=== PATIENT | male | born 1945 | race Caucasian/White ===

== ENCOUNTER → 2017-05-22 | Outpatient (CLI) | payer BC, MEDICARE ==
[2017-05-25 00:06] LABS: Lyme Disease IgG/IgM Antibodie <0.91 ISR (0.00-0.90); Lyme Disease IgM Ab Quantitati <0.80 index (0.00-0.79)
== END ==
LOC: M WUC 13:53
PROVIDERS: ATTEND Internal Medicine Cardiovascular Disease
DX: Z11.2 Encounter for screening for other bacterial diseases (principal); W57.XXXA Bitten or stung by nonvenomous insect and other nonvenomous arthropods, initial encounter

== ENCOUNTER → 2017-11-14 | Outpatient (CLI) | payer BC, MEDICARE ==
[2017-11-14 16:28] LABS: ANION GAP 9 MEQ/L (8-16); BLOOD UREA NITROGEN 12 MG/DL (7-18); CALCIUM LEVEL 9.1 MG/DL (8.8-10.2); CARBON DIOXIDE LEVEL 27 MEQ/L (21-32); CHLORIDE LEVEL 96 MEQ/L (98-107); CREATININE FOR GFR 1.28 MG/DL (0.70-1.30); GLOMERULAR FILTRATION RATE 58.5 (>42); GLUCOSE, FASTING 85 MG/DL (70-100); POTASSIUM SERUM 4.7 MEQ/L (3.5-5.1); SODIUM LEVEL 132 MEQ/L (136-145)
== END ==
LOC: M WUC 14:14
DX: Z85.46 Personal history of malignant neoplasm of prostate (principal)
CPT/HCPCS: 80048

== ENCOUNTER 2018-03-14 09:48 | Day surgery (SDC) | payer BC, MEDICARE ==
[2018-03-14] MEDS: PROPARACAINE 0.5% OPHTH SOL 15ML OS (11:13)
[2018-03-14] MEDS: PHENYLEPHRINE 2.5% OPHTH SOL 2ML OS (11:13)
[2018-03-14] MEDS: OFLOXACIN 0.3 % (OCUFLOX) OPTH SOL 5ML OS (11:13)
[2018-03-14] MEDS: TROPICAMIDE 1% OPHTH SOLN 2ML OS (11:13)
[2018-03-14] MEDS: ACETYLCHOLINE OPHTH SOLN 1% 2ML (MIOCHOL-E) As Ordered (12:48)
[2018-03-14] MEDS: LIDOCAINE 0.75%/EPINEPHRINE 0.025% IN BSS 1ML SYR INTRACAMERAL (OR ONLY) As Ordered (12:48)
[2018-03-14] MEDS: DUOVISC (0.50ML VISCOAT/0.55ML PROVISC) OPHTH KIT As Ordered (12:48)
[2018-03-14] MEDS: POVIDONE-IODINE 5% OPHTH PREP SOL 30ML As Ordered (12:48)
[2018-03-14] MEDS: BALANCED SALT IRRIGATION SOLUTION 500ML BAG (FOR OR EYE MACHINE) As Ordered (12:48)
[2018-03-14] MEDS: CEFUROXIME 1MG/0.1ML INTRACAMERAL INJ As Ordered (12:48)
[2018-03-14] MEDS ORDERED: fentaNYL 100 MCG/2 ML INJECTION (J3010) As Ordered (13:16)
[2018-03-14] MEDS ORDERED: MIDAZOLAM INJ 2 MG/2 ML VIAL (J2250) As Ordered (13:16)
== END 2018-03-14 13:15 | disposition home or self-care (01) ==
LOC: M SDC 13:15
DX: H25.12 Age-related nuclear cataract, left eye (principal); H21.562 Pupillary abnormality, left eye; I25.2 Old myocardial infarction; Z98.61 Coronary angioplasty status; E03.9 Hypothyroidism, unspecified; Z87.891 Personal history of nicotine dependence; E78.5 Hyperlipidemia, unspecified; F41.9 Anxiety disorder, unspecified; Z85.09 Personal history of malignant neoplasm of other digestive organs
CPT/HCPCS: 66982

== ENCOUNTER 2018-03-21 07:14 | Day surgery (SDC) | payer BC, MEDICARE ==
[2018-03-21] MEDS ORDERED: MIDAZOLAM INJ 2 MG/2 ML VIAL (J2250) As Ordered (07:16)
[2018-03-21] MEDS: OFLOXACIN 0.3 % (OCUFLOX) OPTH SOL 5ML OD (07:46)
[2018-03-21] MEDS: PROPARACAINE 0.5% OPHTH SOL 15ML OD (07:46)
[2018-03-21] MEDS: TROPICAMIDE 1% OPHTH SOLN 2ML OD (07:46)
[2018-03-21] MEDS: PHENYLEPHRINE 2.5% OPHTH SOL 2ML OD (07:46)
[2018-03-21] MEDS ORDERED: fentaNYL 100 MCG/2 ML INJECTION (J3010) As Ordered (08:24)
[2018-03-21] MEDS: POVIDONE-IODINE 5% OPHTH PREP SOL 30ML As Ordered (08:28)
[2018-03-21] MEDS: CEFUROXIME 1MG/0.1ML INTRACAMERAL INJ As Ordered (08:29)
[2018-03-21] MEDS: DUOVISC (0.50ML VISCOAT/0.55ML PROVISC) OPHTH KIT As Ordered (08:29)
[2018-03-21] MEDS: LIDOCAINE 0.75%/EPINEPHRINE 0.025% IN BSS 1ML SYR INTRACAMERAL (OR ONLY) As Ordered (08:29)
[2018-03-21] MEDS: BALANCED SALT IRRIGATION SOLUTION 500ML BAG (FOR OR EYE MACHINE) As Ordered (08:29)
== END 2018-03-21 09:05 | disposition home or self-care (01) ==
LOC: M SDC 07:14
DX: H25.11 Age-related nuclear cataract, right eye (principal); I25.2 Old myocardial infarction; Z98.61 Coronary angioplasty status; Z88.2 Allergy status to sulfonamides; Z79.82 Long term (current) use of aspirin; Z79.899 Other long term (current) drug therapy; E78.5 Hyperlipidemia, unspecified; E03.9 Hypothyroidism, unspecified; F41.9 Anxiety disorder, unspecified; Z92.3 Personal history of irradiation; Z87.891 Personal history of nicotine dependence; Z85.09 Personal history of malignant neoplasm of other digestive organs; Z85.110 Personal history of malignant carcinoid tumor of bronchus and lung
CPT/HCPCS: 66984

== ENCOUNTER 2018-06-15 10:45 | Emergency (ER) | payer BC, MEDICARE ==
[2018-06-15 11:37] LABS: VENOUS HCO3 27.4 MEQ/L (23.0-27.0); VENOUS O2 SATURATION 57.9 % (60.0-80.0); VENOUS PARTIAL PRESSURE CO2 50.7 mmHg (38.0-50.0); VENOUS PARTIAL PRESSURE O2 35.1 mmHg (30.0-50.0); VENOUS PH 7.351 UNITS (7.330-7.430); VENOUS STANDARD HCO3 24.5 MEQ/L
[2018-06-15] MEDS: METOPROLOL TART 50 MG TAB PO (11:39)
[2018-06-15 11:43] LABS: BASO # 0.1 10^3/uL (0.0-0.2); BASO % 1.1 % (0.0-1.0); EOS # 0.1 10^3/uL (0.0-0.50); EOS % 0.9 % (0.0-3.0); HEMATOCRIT 37.9 % (42.0-52.0); HEMOGLOBIN 12.8 g/dl (13.5-17.5); IMMATURE GRANULOCYTE % 0.3 % (0-3.0); LYMPH # 0.8 10^3/uL (1.5-4.5); LYMPH % 12.1 % (24.0-44.0); MEAN CORPUSCULAR HEMOGLOBIN 30.5 pg (27.0-33.0); MEAN CORPUSCULAR HGB CONC 33.8 g/dl (32.0-36.5); MEAN CORPUSCULAR VOLUME 90.5 fl (80.0-96.0); MONO # 0.7 10^3/uL (0.0-0.8); MONO % 10.7 % (0.0-5.0); NEUTROPHILS % 74.9 % (36.0-66.0); PLATELET COUNT, AUTOMATED 257 10^3/uL (150-450); RED BLOOD COUNT 4.19 10^6/uL (4.30-6.10); RED CELL DISTRIBUTION WIDTH 12.6 % (11.5-14.5); WHITE BLOOD COUNT 6.6 10^3/uL (4.0-10.0)
[2018-06-15 11:56] LABS: PROTHROMBIN TIME 13.3 SECONDS (12.1-14.4)
[2018-06-15 12:17] LABS: LACTIC ACID SEPSIS PROTOCOL 2.2 MMOL/L (0.4-2.0)
[2018-06-15 12:25] LABS: ALBUMIN 3.6 GM/DL (3.2-5.2); ALBUMIN/GLOBULIN RATIO 1.09 (1.00-1.93); ALKALINE PHOSPHATASE 127 U/L (45-117); ALT/SGPT 15 U/L (12-78); ANION GAP 14 MEQ/L (8-16); AST/SGOT 13 U/L (7-37); BILIRUBIN,DIRECT 0.3 MG/DL (0.0-0.2); BILIRUBIN,TOTAL 0.8 MG/DL (0.2-1.0); BLOOD UREA NITROGEN 12 MG/DL (7-18); CALCIUM LEVEL 8.6 MG/DL (8.8-10.2); CARBON DIOXIDE LEVEL 26 MEQ/L (21-32); CHLORIDE LEVEL 93 MEQ/L (98-107); CPK CREATINE PHOSPHOKINASE 105 U/L (39-308); CREATININE FOR GFR 1.41 MG/DL (0.70-1.30); GLOMERULAR FILTRATION RATE 52.2 (>42); GLUCOSE, FASTING 96 MG/DL (70-100); MB/CK RELATIVE INDEX 2.38 (< OR =4); NT-PRO BNP 3808 PG/ML (<450); POTASSIUM SERUM 4.1 MEQ/L (3.5-5.1); SODIUM LEVEL 133 MEQ/L (136-145); TOTAL PROTEIN 6.9 GM/DL (6.4-8.2); TROPONIN I < 0.02 NG/ML (< 0.10)
[2018-06-15] MEDS: NS 1,000 ML IV (13:10)
[2018-06-15] MEDS: IPRATROPIUM 0.5MG/ALBUTEROL 2.5MG INH SOL UD 3ML (DUONEB)(J7620) NEB (14:20)
== END 2018-06-15 15:57 | disposition home or self-care (01) ==
LOC: M ED 10:45
DX: J20.9 Acute bronchitis, unspecified (principal); I48.91 Unspecified atrial fibrillation; I51.7 Cardiomegaly; I25.10 Atherosclerotic heart disease of native coronary artery without angina pectoris; I25.2 Old myocardial infarction; C34.90 Malignant neoplasm of unspecified part of unspecified bronchus or lung; Z95.5 Presence of coronary angioplasty implant and graft; Z90.2 Acquired absence of lung [part of]; Z87.891 Personal history of nicotine dependence; Z79.82 Long term (current) use of aspirin; Z79.899 Other long term (current) drug therapy; Z88.2 Allergy status to sulfonamides
CPT/HCPCS: 71045

== ENCOUNTER → 2018-09-15 | Outpatient (CLI) | payer BC, MEDICARE ==
[~2018-09-15] MED LIST: AMBI10TA PO; APRI0.37 PO; ASPI325T25 PO; AZIT500T2 PO; CLOP75TA2 PO; COMP1MIS3 XX; FLOM0.4C39 PO; FURO20TA2 PO; LEVO25TA5 PO; METO50TA7 PO; NASA0.9A INH; OMEP20CA3 PO; ROSU5TAB4 PO; VENTAER INH; VITA100066 PO; XANA0.25 PO
[2018-09-15 16:42] LABS: BLOOD UREA NITROGEN 18 MG/DL (7-18); CREATININE FOR GFR 1.05 MG/DL (0.70-1.30); GLOMERULAR FILTRATION RATE > 60.0 (>42)
== END ==
LOC: M WUC 12:33
DX: Z85.46 Personal history of malignant neoplasm of prostate (principal)

== ENCOUNTER → 2018-11-15 | Outpatient (CLI) | payer BC, MEDICARE ==
[~2018-11-15] MED LIST changes: +ASPI-255 PO; -ASPI325T25 PO
== END ==
LOC: M WUC 14:10
PROVIDERS: ATTEND Urology
DX: Z85.46 Personal history of malignant neoplasm of prostate (principal)

== ENCOUNTER → 2018-12-23 | Outpatient (CLI) | payer BC, MEDICARE | LOC: M WUC 11:17 | PROVIDERS: ATTEND Nurse Practitioner | DX: Z51.81 Encounter for therapeutic drug level monitoring (principal) ==

== ENCOUNTER 2019-09-17 11:58 | Outpatient (RCR) | payer BC, MEDICARE ==
[~2019-09-17] VITALS: Ht 177.8 cm; Wt 73.7 kg
[~2019-09-17 11:58] MED LIST changes: -AZIT500T2 PO; +AZIT500T5 PO; +OMEP1CAP73 PO; -OMEP20CA3 PO; -ROSU5TAB4 PO; +ROSU5TAB5 PO
[2019-09-17] MEDS ORDERED: METO25TA4 PO (13:11)
[2019-09-17] MEDS ORDERED: ONDA-83 PO (13:11)
[2019-09-17] MEDS ORDERED: CRES5TAB PO (13:11)
[2019-09-17] MEDS ORDERED: PROT1TAB2 PO (13:11)
[2019-09-17] MEDS ORDERED: LEVO150T7 PO (13:11)
[2019-09-17] MEDS ORDERED: ELIQ5TAB PO (13:11)
[2019-09-17] MEDS ORDERED: FURO40TA2 PO (13:11)
[2019-09-17] MEDS ORDERED: RAPA8CAP4 PO (13:11)
[2019-09-17 13:37] VITALS: BP 119/60
[2019-09-17 14:08] VITALS: BP 119/60
[2019-09-17 14:34] VITALS: BP 119/60
--- NOTE | 2019-09-17 15:26 | CARECAPL ---
Assessment Account #s: Initial Assessment General Diagnoses: CABG, Stent Date of event: Dec 16, 2018 Physician: Mendel Bruner Allergies: Coded Allergies: Sulfa (Sulfonamide Antibiotics) (Verified Allergy, Unknown, 09/16/19) Date Entered Program: Sep 17, 2019 Risk strat for cardiac event: High Exercise Date: Sep 17, 2019 Assessment: Initial Assessment Stages of change: Preperation Exercise Prescription Plan TO EDUCATE AND BUILD ENDURANCE THROUGH MONITORED EXERCISE PROGRAM Modalities initiated: Treadmill (WILL ADD), Cardio-Strider (WILL ADD), Nustep (WILL ADD), Arm Aerometer (WILL ADD), Dumbells (WILL ADD), Recumbent Bike (WILL ADD) Frequency: 3 Duration (Minutes) 30 - 60 minutes total exercise a day. 15 - 20 work intervals in minutes. PRN rest intervals in minutes. Functional Capacity Goal Sustained Metabolic Equivalent of a task (MET) goal of 2.5-3.5 for 15-20 minutes. Intensity: 3-Moderate Progression (METS) Increase by: 0.5 METS every: 5 sessions TOLERATED Angina with ex: No Target Heart Rate REST + 35-40 PER BETA NICCI THERAPY Resistance Training: Yes (WILL ADD) Weight (pounds): 1 Reps: 8-12 Hypertension: Yes Resting 119/60 Medications Scheduled Apixaban (Eliquis), 5 MG PO BID, (Reported) Clopidogrel Bisulfate (Clopidogrel), 75 MG PO DAILY, (Reported) Furosemide (Furosemide), 40 MG PO DAILY, (Reported) Levothyroxine Sodium (Levothyroxine Sodium), 150 MCG PO DAILY, (Reported) Mesalamine (Apriso), 0.375 GRAM PO QID, (Reported) Metoprolol Tartrate (Metoprolol Tartrate), 25 MG PO BID, (Reported) Pantoprazole Sodium (Protonix), 40 MG PO DAILY, (Reported) Rosuvastatin Calcium (Crestor), 5 MG PO DAILY, (Reported) Silodosin (Rapaflo), 8 MG PO QPM, (Reported) Tamsulosin HCl (Flomax), 0.4 MG PO DAILY, (Reported) Scheduled PRN Albuterol Sulfate (Ventolin Hfa), 2 PUFF INH Q4-6HP PRN for wheezing, (Reported) Alprazolam (Xanax), 0.25 MG PO DAILYPRN PRN for ANXIETY, (Reported) Ondansetron HCl (Ondansetron HCl), 4 MG PO DAILY PRN for NAUSEA OR VOMITING, (Reported) Zolpidem Tartrate (Ambien), 10 MG PO QHSP PRN for sleep, (Reported) Discontinued Medications (Compressor Nebulizer), MIS XX, (DME) Discontinued Reason: Pt states not taking 0.9 % Sodium Chloride (Nasal Mist), 2 INHALATION INH QID PRN for CONGESTION Discontinued Reason: Pt states not taking Aspirin (Aspirin EC), 325 MG PO DAILY, (Reported) Discontinued Reason: Pt states not taking Azithromycin (Azithromycin), 1 TAB PO DAILY Discontinued Reason: Pt states not taking Cholecalciferol (Vitamin D3) (Vitamin D3), 1,000 UNIT PO DAILY, (Reported) Discontinued Reason: Pt states not taking Furosemide (Furosemide), 20 MG PO DAILY, (Reported) Discontinued Reason: Pt states not taking Levothyroxine Sodium (Levothyroxine Sodium), 25 MCG PO DAILY, (Reported) Discontinued Reason: Pt states not taking Metoprolol Tartrate (Metoprolol Tartrate), 50 MG PO DAILY, (Reported) Discontinued Reason: Pt states not taking Omeprazole (Omeprazole), 20 MG PO DAILY, (Reported) Discontinued Reason: Pt states not taking Med Change: No Intervention Resistance Training: Yes (WILL ADD) Education: Self pulse (Instructed patient on how to take self pulse) Education Goals Met: No Target Goals Individual exercise Rx (1) BP 140/90 or 130/80 if DM or CKD (1) Aerobic active 30+min 5 days per week (1) Nutrition Date: Sep 17, 2019 Assessment: Initial Assessment Stages of change: Preperation Lipid- med/supplement CRESTOR Med Change: No Diabetes Diabetes: No Weight Management Weight (lbs): 162.2 Height (inches): 70 Waist Circumference (Inches): 38 BMI: 23.3 Weight goal: 175 Special Diet: low salt, low-fat Alcohol: daily Alcohol Type: wine (PATIENT STATES "SOME", H&P STATES 2 DAILY) Alcohol Amount: 2 Diet Access Tool: Rate your plate Score: 51 Current Weight (pounds): 162.2 Weight Goal 175 Intervention Lubrication Equipment Servicer Consult: No Nurse/patient discussion: Yes Dietary Goals TO MAKE HEART HEALTHY DIET CHOICES WITH BOOST SUPPLEMENTATION Diet Class: Yes (WILL SEE TWO WAY RADIO TECHNICIAN WHILE IN PROGRAM) Referral to Diabetes education: No Referral to lipid clinic: No Referral to weight mangement p: No Education Eating Healthy Education Goals Met: No Target goal LDL-C<100 if triglycerides are >200 Non-HDL-C should be <130 (1) LDL-C<70 for high risk patients (4) HbA1c<7% (1) BMI<25 Waist cir<40in M/<35in F (1) Education Date: Sep 17, 2019 Assessment: Initial Assessment Learning Barriers: ready Knowledge Test Score: 10 Stages of change: Preperation Family Support: Yes Tobacco use: No Quit: >6 months (QUIT 1989) Tobacco Use Smokeless tobacco: No Intervention Referral to smoking cessation: No Individual education and couns: No Tobacco Adjunct: No Education class schedule given: No Attended education classes: No Education: CAD (Patient verbalizes that elevated cholesterol can clog arteries leading to CAD) Education Goals Met: No Target Goals Complete cessation of tobacco use (1). Psychosocial Date: Sep 17, 2019 Assessment: Initial Assessment Psych Test (Initial/Discharge) Tool Used: Other (PHQ-9) Score: 2 Stages of change: Preperation Intervention Physician Consult: No Physician Referral: No Med Change: No Stress Management Class: No Uses Stress Management Skills: Yes Education Education: Coping Techniques (Patient states he should share his feelings with someone he feels comfortable with, take time for himself) Education Goals Met: No Target Goal Assess presence or absence of depression using a valid screening tool (1). Maximize coping skills (2). Positive support system (2). Patient/Program Goal Preventative Medication: Yes Clopidogrel, Yes Beta blockade, Yes Statin/OTR lipid Lowering Fall Risk Assess: Yes (NOT A FALL RISK) Provider Assessment Session Number: 1 Provider Assessment: Proceed with rehab Anil Thomas RN Sep 17, 2019 15:26
--- NOTE | 2019-09-25 10:01 | CARECAPL ---
General Allergies: Coded Allergies: Sulfa (Sulfonamide Antibiotics) (Verified Allergy, Unknown, 09/16/19) Exercise Prescription Duration (Minutes) 30 - 60 minutes total exercise a day. 15 - 20 work intervals in minutes. PRN rest intervals in minutes. Functional Capacity Goal Sustained Metabolic Equivalent of a task (MET) goal of for minutes. Progression (METS) Increase by: METS every: sessions Medications Scheduled Apixaban (Eliquis), 5 MG PO BID, (Reported) Clopidogrel Bisulfate (Clopidogrel), 75 MG PO DAILY, (Reported) Furosemide (Furosemide), 40 MG PO DAILY, (Reported) Levothyroxine Sodium (Levothyroxine Sodium), 150 MCG PO DAILY, (Reported) Mesalamine (Apriso), 0.375 GRAM PO QID, (Reported) Metoprolol Tartrate (Metoprolol Tartrate), 25 MG PO BID, (Reported) Pantoprazole Sodium (Protonix), 40 MG PO DAILY, (Reported) Rosuvastatin Calcium (Crestor), 5 MG PO DAILY, (Reported) Silodosin (Rapaflo), 8 MG PO QPM, (Reported) Tamsulosin HCl (Flomax), 0.4 MG PO DAILY, (Reported) Scheduled PRN Albuterol Sulfate (Ventolin Hfa), 2 PUFF INH Q4-6HP PRN for wheezing, (Reported) Alprazolam (Xanax), 0.25 MG PO DAILYPRN PRN for ANXIETY, (Reported) Ondansetron HCl (Ondansetron HCl), 4 MG PO DAILY PRN for NAUSEA OR VOMITING, (Reported) Zolpidem Tartrate (Ambien), 10 MG PO QHSP PRN for sleep, (Reported) Target Goals Individual exercise Rx (1) BP 140/90 or 130/80 if DM or CKD (1) Aerobic active 30+min 5 days per week (1) Target goal LDL-C<100 if triglycerides are >200 Non-HDL-C should be <130 (1) LDL-C<70 for high risk patients (4) HbA1c<7% (1) BMI<25 Waist cir<40in M/<35in F (1) Target Goals Complete cessation of tobacco use (1). Target Goal Assess presence or absence of depression using a valid screening tool (1). Maximize coping skills (2). Positive support system (2). Provider Assessment Provider Assessment: Please add/change: (Patient on hold d/t Covid-19.) Esperanza Cheek RN Sep 25, 2019 10:01
--- NOTE | 2019-09-26 13:48 | CARECAPL ---
General Allergies: Coded Allergies: Sulfa (Sulfonamide Antibiotics) (Verified Allergy, Unknown, 09/16/19) Exercise Prescription Duration (Minutes) 30 - 60 minutes total exercise a day. 15 - 20 work intervals in minutes. PRN rest intervals in minutes. Functional Capacity Goal Sustained Metabolic Equivalent of a task (MET) goal of for minutes. Progression (METS) Increase by: METS every: sessions Medications Scheduled Apixaban (Eliquis), 5 MG PO BID, (Reported) Clopidogrel Bisulfate (Clopidogrel), 75 MG PO DAILY, (Reported) Furosemide (Furosemide), 40 MG PO DAILY, (Reported) Levothyroxine Sodium (Levothyroxine Sodium), 150 MCG PO DAILY, (Reported) Mesalamine (Apriso), 0.375 GRAM PO QID, (Reported) Metoprolol Tartrate (Metoprolol Tartrate), 25 MG PO BID, (Reported) Pantoprazole Sodium (Protonix), 40 MG PO DAILY, (Reported) Rosuvastatin Calcium (Crestor), 5 MG PO DAILY, (Reported) Silodosin (Rapaflo), 8 MG PO QPM, (Reported) Tamsulosin HCl (Flomax), 0.4 MG PO DAILY, (Reported) Scheduled PRN Albuterol Sulfate (Ventolin Hfa), 2 PUFF INH Q4-6HP PRN for wheezing, (Reported) Alprazolam (Xanax), 0.25 MG PO DAILYPRN PRN for ANXIETY, (Reported) Ondansetron HCl (Ondansetron HCl), 4 MG PO DAILY PRN for NAUSEA OR VOMITING, (Reported) Zolpidem Tartrate (Ambien), 10 MG PO QHSP PRN for sleep, (Reported) Target Goals Individual exercise Rx (1) BP 140/90 or 130/80 if DM or CKD (1) Aerobic active 30+min 5 days per week (1) Target goal LDL-C<100 if triglycerides are >200 Non-HDL-C should be <130 (1) LDL-C<70 for high risk patients (4) HbA1c<7% (1) BMI<25 Waist cir<40in M/<35in F (1) Target Goals Complete cessation of tobacco use (1). Target Goal Assess presence or absence of depression using a valid screening tool (1). Maximize coping skills (2). Positive support system (2). Provider Assessment Provider Assessment: No changes (Cardiac Rehab Program closed due to COVID-19, patient's account to be put on hold) Anil Thomas RN Sep 26, 2019 13:48
== END 2019-10-07 ==
LOC: M CR 11:58
PROVIDERS: ATTEND Internal Medicine Cardiovascular Disease
DX: Z95.1 Presence of aortocoronary bypass graft (principal)

== ENCOUNTER → 2021-03-25 | Outpatient (CLI) | payer OTHER, MEDICARE ==
[~2021-03-25] MED LIST changes: +CRES5TAB PO; +ELIQ5TAB PO; +FURO40TA2 PO; +LEVO150T7 PO; +METO25TA4 PO; +ONDA-83 PO; +PROT1TAB2 PO; +RAPA8CAP4 PO
--- NOTE | 2021-03-25 08:29 | REP ---
INDICATION: ELEVATED LFTS COMPARISON: None. TECHNIQUE: Real time kohli scale ultrasound examination using curved array transducer. FINDINGS: Liver and pancreas are normal in contour, size, and echogenicity without focal hepatic or pancreatic lesions identified. The gallbladder is surgically absent. No significant biliary ductal dilatation is appreciated and the common bile duct measures 8 mm diameter. Right kidney is surgically absent. No ascites in the visualized right upper quadrant. IMPRESSION: 1. Prior cholecystectomy and right nephrectomy. 2. Normal appearance of the liver. <Electronically signed by Job Ritter > 03/25/21 0823
== END ==
LOC: M RAD 08:04
PROVIDERS: ATTEND Internal Medicine Gastroenterology
DX: R94.5 Abnormal results of liver function studies (principal)

== ENCOUNTER → 2021-12-23 | Outpatient (CLI) | payer OTHER, MEDICARE ==
[2021-12-23 10:00] LABS: HEMATOCRIT 31.5 % (42.0-52.0); HEMOGLOBIN 10.7 g/dl (13.5-17.5); MEAN CORPUSCULAR HEMOGLOBIN 31.2 pg (27.0-33.0); MEAN CORPUSCULAR VOLUME 91.8 fl (80.0-96.0); PLATELET COUNT, AUTOMATED 253 10^3/uL (150-450); RED BLOOD COUNT 3.43 10^6/uL (4.30-6.10); WHITE BLOOD COUNT 7.1 10^3/uL (4.0-10.0)
[2021-12-23 10:04] LABS: ALBUMIN 3.9 GM/DL (3.2-5.2); BILIRUBIN,TOTAL 0.6 MG/DL (0.2-1.0); CALCIUM LEVEL 8.7 MG/DL (8.8-10.2); CREATININE FOR GFR 1.27 MG/DL (0.70-1.30); GLOMERULAR FILTRATION RATE 58.4 (>42); POTASSIUM SERUM 4.4 MEQ/L (3.5-5.1); TOTAL PROTEIN 6.5 GM/DL (6.4-8.2)
== END ==
LOC: M WUC 08:07
PROVIDERS: ATTEND Nurse Practitioner Family
DX: K51.50 Left sided colitis without complications (principal); K21.9 Gastro-esophageal reflux disease without esophagitis; R74.8 Abnormal levels of other serum enzymes

== ENCOUNTER → 2021-12-23 | Outpatient (CLI) | payer OTHER, MEDICARE | LOC: M RAD 09:21 | PROVIDERS: ATTEND Internal Medicine Gastroenterology | DX: R74.8 Abnormal levels of other serum enzymes (principal) ==

== ENCOUNTER → 2022-01-03 | Outpatient (CLI) | payer OTHER, MEDICARE ==
[2022-01-03 11:13] LABS: PERCENT SATURATION 17.7 % (19.7-50.0)
[2022-01-03 11:39] LABS: FOLATE 17.5 NG/ML (>5.4)
== END ==
LOC: M WUC 07:59
PROVIDERS: ATTEND Nurse Practitioner Family
DX: D64.9 Anemia, unspecified (principal)

== ENCOUNTER → 2022-01-25 | Outpatient (REF) | payer MEDICARE, OTHER ==
[2022-01-25 13:25] LABS: BASO # 0.1 10^3/uL (0.0-0.2); EOS # 0.1 10^3/uL (0.0-0.5); EOS % 1.7 % (0.0-3.0); HEMATOCRIT 34.4 % (42.0-52.0); HEMOGLOBIN 11.2 g/dl (13.5-17.5); LYMPH # 0.9 10^3/uL (1.5-5.0); LYMPH % 12.3 % (24.0-44.0); MEAN CORPUSCULAR HEMOGLOBIN 30.7 pg (27.0-33.0); MEAN CORPUSCULAR HGB CONC 32.6 g/dl (32.0-36.5); MEAN CORPUSCULAR VOLUME 94.2 fl (80.0-96.0); MONO # 0.7 10^3/uL (0.0-0.8); MONO % 10.2 % (2.0-8.0); NEUTROPHILS # 5.2 10^3/uL (1.5-8.5); NEUTROPHILS % 74.2 % (36.0-66.0); PLATELET COUNT, AUTOMATED 311 10^3/uL (150-450); RED BLOOD COUNT 3.65 10^6/uL (4.30-6.10)
[2022-01-25 13:29] LABS: APPEARANCE, URINE CLEAR (CLEAR); BACTERIA, URINE AUTO NEGATIVE (NEGATIVE); BILIRUBIN, URINE AUTO NEGATIVE (NEGATIVE); BLOOD, URINE BLOOD NEGATIVE (NEGATIVE); COLOR, URINE YELLOW (YELLOW); GLUCOSE, URINE (UA) AUTO NEGATIVE (NEGATIVE); KETONE, URINE AUTO NEGATIVE (NEGATIVE); LEUKOCYTE ESTERASE, URINE AUTO NEGATIVE (NEGATIVE); MUCUS, URINE SMALL (NEGATIVE); NITRITE, URINE AUTO NEGATIVE (NEGATIVE); PROTEIN, URINE AUTO 1+ mg/dL (NEGATIVE); RBC, URINE AUTO 6 /HPF (0-3); SPECIFIC GRAVITY URINE AUTO 1.019 (1.002-1.035); SQUAMOUS EPITHELIAL CELL UR AU 0 /HPF (0-6); UROBILINOGEN, URINE AUTO 0.2 mg/dL (0.0-2.0); WBC, URINE AUTO 1 /HPF (0-3)
[2022-01-25 14:11] LABS: ALBUMIN 4.4 GM/DL (3.2-5.2); ALT/SGPT 12 U/L (12-78); BILIRUBIN,TOTAL 0.8 MG/DL (0.2-1.0); BLOOD UREA NITROGEN 19 MG/DL (7-18); C REACTIVE PROTEIN QUANTITATIV 2.21 MG/DL (0.00-0.30); CALCIUM LEVEL 9.5 MG/DL (8.8-10.2); CARBON DIOXIDE LEVEL 24 MEQ/L (21-32); CHLORIDE LEVEL 98 MEQ/L (98-107); COMPLEMENT C3 100 MG/DL (90-180); COMPLEMENT C4 32 MG/DL (10-40); GLOMERULAR FILTRATION RATE > 60.0 (>42); GLUCOSE, FASTING 93 MG/DL (70-100); POTASSIUM SERUM 4.6 MEQ/L (3.5-5.1); SODIUM LEVEL 131 MEQ/L (136-145); TOTAL PROTEIN 7.3 GM/DL (6.4-8.2)
[2022-01-25 14:18] LABS: ERYTHROCYTE SEDIMENTATION RATE 53 mm/hr (0-20)
[2022-01-25 14:36] LABS: TOTAL PROTEIN,RANDOM URINE 36.8 MG/DL (0.0-12.0)
== END ==
LOC: M SFHCRHEU 09:01
PROVIDERS: ATTEND Internal Medicine Rheumatology
DX: R76.8 Other specified abnormal immunological findings in serum (principal); M35.3 Polymyalgia rheumatica

== ENCOUNTER → 2022-01-27 | Outpatient (CLI) | payer MEDICARE, OTHER | LOC: M WUC 08:23 | PROVIDERS: ATTEND Internal Medicine Rheumatology | DX: R76.8 Other specified abnormal immunological findings in serum (principal); M35.3 Polymyalgia rheumatica ==

== ENCOUNTER 2022-03-15 16:24 | Inpatient (IN) | payer OTHER, MEDICARE ==
[~2022-03-15] VITALS: Ht 177.8 cm; Wt 174.2 kg
[2022-03-15] MEDS ORDERED: ACETAMINOPHEN TAB 650MG DOSE (2X325MG) PO PRN (16:55)
[2022-03-15 17:00] VITALS: BP 129/60
[2022-03-15] MEDS ORDERED: VITA100093 PO (19:22)
[2022-03-15] MEDS ORDERED: LEXA5TAB13 PO (19:22)
[2022-03-15] MEDS ORDERED: MORP-69 PO (19:22)
[2022-03-15] MEDS ORDERED: FERR5ELX PO (19:22)
[2022-03-15] MEDS ORDERED: WARF4TAB51 PO (19:22)
[2022-03-15] MEDS ORDERED: SODI1TAB6 PO (19:22)
[2022-03-15] MEDS ORDERED: LISI2.5T8 PO (19:22)
[2022-03-15] MEDS ORDERED: [UNRECOGNIZED DRUG - CODE] IV (19:22)
[2022-03-15] MEDS ORDERED: LEVA45AE INH (19:22)
[2022-03-15] MEDS ORDERED: BUDE10.7 INH (19:22)
[2022-03-15] MEDS ORDERED: AMIO200T49 PO (19:22)
[2022-03-15] MEDS ORDERED: FURO10IN2 IV (19:22)
[2022-03-15] MEDS ORDERED: [UNRECOGNIZED DRUG - CODE] IV (19:22)
[2022-03-15] MEDS ORDERED: METO1TAB32 PO (19:22)
[2022-03-15] MEDS ORDERED: ATOR40TA75 PO (19:22)
[2022-03-15] MEDS ORDERED: OXYC-517 PO (19:22)
[2022-03-15] MEDS ORDERED: FLOM0.4C39 PO (19:22)
[2022-03-15] MEDS ORDERED: SENN8.8S11 PO (19:22)
[2022-03-15] MEDS ORDERED: ASPI81TA26 PO (19:22)
[2022-03-15] MEDS ORDERED: HOME MED LIST COMPLETE! XX SCH (19:25)
[2022-03-15] MEDS ORDERED: oxyCODONE 5MG TAB PO PRN (19:45)
[2022-03-15 19:52] VITALS: BP 120/58
[2022-03-15] MEDS ORDERED: TAMSULOSIN 0.4 MG CAP PO SCH (21:00)
[2022-03-15] MEDS ORDERED: PANTOPRAZOLE 40MG TAB (PROTONIX) PO SCH (21:00)
[2022-03-15] MEDS ORDERED: SODIUM CHLORIDE 1 GM TAB PO SCH (21:00)
[2022-03-15] MEDS ORDERED: ATORVASTATIN 20 MG TAB PO SCH (21:00)
[2022-03-15] MEDS: TAMSULOSIN 0.4 MG CAP PO SCH (21:15)
[2022-03-15] MEDS: AMIODARONE 200 MG TAB (PACERONE) PO SCH (21:15)
[2022-03-15] MEDS: ATORVASTATIN 20 MG TAB PO SCH (21:15)
[2022-03-15 21:33] LABS: INR 1.94; PROTHROMBIN TIME 22.6 SECONDS (12.7-14.5)
[2022-03-15] MEDS: WARFARIN SOD 2MG TAB PO SCH (21:37)
[2022-03-15] MEDS: SODIUM CHLORIDE 1 GM TAB PO SCH (21:37)
[2022-03-15] MEDS: LEVALBUTEROL HFA 45MCG/ACT 15 GM INHALER INH SCH (23:16)
[2022-03-16] MEDS: PERCOCET 5MG/325MG TAB PO PRN ×3 (02:27→23:09)
[2022-03-16 05:36] VITALS: BP 115/59
[2022-03-16] MEDS: LEVOTHYROXINE 150MCG TABLET (0.15MG) PO SCH (05:57)
[2022-03-16] MEDS ORDERED: LEVOTHYROXINE 150MCG TABLET (0.15MG) PO SCH (06:00)
[2022-03-16 07:01] LABS: BASO # 0.1 10^3/uL (0.0-0.2); BASO % 1.1 % (0.0-1.0); EOS # 0.1 10^3/uL (0.0-0.5); EOS % 0.9 % (0.0-3.0); HEMATOCRIT 23.2 % (42.0-52.0); HEMOGLOBIN 7.6 g/dl (13.5-17.5); LYMPH # 0.5 10^3/uL (1.5-5.0); LYMPH % 7.2 % (24.0-44.0); MEAN CORPUSCULAR HGB CONC 32.8 g/dl (32.0-36.5); MEAN CORPUSCULAR VOLUME 88.5 fl (80.0-96.0); MONO # 0.6 10^3/uL (0.0-0.8); MONO % 9.2 % (2.0-8.0); NEUTROPHILS # 5.3 10^3/uL (1.5-8.5); NEUTROPHILS % 80.8 % (36.0-66.0); PLATELET COUNT, AUTOMATED 469 10^3/uL (150-450); RED BLOOD COUNT 2.62 10^6/uL (4.30-6.10); WHITE BLOOD COUNT 6.5 10^3/uL (4.0-10.0)
[2022-03-16 07:13] LABS: INR 1.97; PROTHROMBIN TIME 22.8 SECONDS (12.7-14.5)
[2022-03-16 07:32] LABS: ALT/SGPT 19 U/L (12-78); BILIRUBIN,TOTAL 0.6 MG/DL (0.2-1.0); BLOOD UREA NITROGEN 19 MG/DL (7-18); CALCIUM LEVEL 8.8 MG/DL (8.8-10.2); CARBON DIOXIDE LEVEL 26 MEQ/L (21-32); CHLORIDE LEVEL 98 MEQ/L (98-107); CREATININE FOR GFR 0.95 MG/DL (0.70-1.30); GLOMERULAR FILTRATION RATE > 60.0 (>42); GLUCOSE, FASTING 96 MG/DL (70-100); POTASSIUM SERUM 3.8 MEQ/L (3.5-5.1); SODIUM LEVEL 130 MEQ/L (136-145); TOTAL PROTEIN 5.8 GM/DL (6.4-8.2)
[2022-03-16] MEDS: LEVALBUTEROL HFA 45MCG/ACT 15 GM INHALER INH SCH ×3 (07:32→20:30)
[2022-03-16] MEDS: COMBIVENT RESPIMAT 100-20MCG INHALER 4GM INH PRN (07:32)
[2022-03-16] MEDS ORDERED: **NOTE PATIENT COMMENT** MISC XX SCH (09:00)
[2022-03-16] MEDS ORDERED: LISINOPRIL *2.5 MG* TAB PO SCH (09:00)
[2022-03-16] MEDS ORDERED: ASPIRIN 81 MG CHEW TABLET PO SCH (09:00)
[2022-03-16] MEDS ORDERED: ESCITALOPRAM OXALATE 5MG TABLET (LEXAPRO) PO SCH (09:00)
[2022-03-16] MEDS ORDERED: VITAMIN D 1,000 INTERNATIONAL UNITS TABLET PO SCH (09:00)
[2022-03-16] MEDS: VITAMIN D 1,000 INTERNATIONAL UNITS TABLET PO SCH (09:06)
[2022-03-16] MEDS: PANTOPRAZOLE 40MG TAB (PROTONIX) PO SCH (09:07)
[2022-03-16] MEDS: ESCITALOPRAM OXALATE 5MG TABLET (LEXAPRO) PO SCH (09:07)
[2022-03-16] MEDS: FERROUS SULFATE 325MG TAB PO SCH (09:07)
[2022-03-16] MEDS: ASPIRIN 81MG ENTERIC TABLET PO SCH (09:07)
[2022-03-16] MEDS: SODIUM CHLORIDE 1 GM TAB PO SCH ×3 (09:07→17:08)
[2022-03-16] MEDS: AMIODARONE 200 MG TAB (PACERONE) PO SCH ×2 (09:08→20:35)
[2022-03-16] MEDS: METOPROLOL SUCC *XL* 12.5MG PER 1/2 TAB (TopROL *XL*) PO SCH (09:08)
[2022-03-16 14:00] VITALS: BP 102/42
[2022-03-16] MEDS: LISINOPRIL *2.5 MG* TAB PO SCH (17:07)
[2022-03-16] MEDS: WARFARIN SOD 2MG TAB PO SCH (17:08)
[2022-03-16 18:14] LABS: OSMOLALITY URINE 709 MOSM/KG (50-1400)
[2022-03-16 18:52] LABS: SODIUM,RANDOM URINE 34 MEQ/L
[2022-03-16 20:03] VITALS: BP 118/59
[2022-03-16] MEDS: ATORVASTATIN 20 MG TAB PO SCH (20:35)
[2022-03-16] MEDS: TAMSULOSIN 0.4 MG CAP PO SCH (20:35)
[2022-03-16] MEDS ORDERED: LIDOCAINE 5% (LIDODERM) PATCH TD SCH (21:00)
[2022-03-17 02:54] LABS: APPEARANCE, URINE MANUAL CLEAR (CLEAR); COLOR, URINE MANUAL DK YELLOW (YELLOW)
[2022-03-17 02:55] LABS: PROTEIN, URINE MANUAL 1+ mg/dL (NEGATIVE); SPECIFIC GRAVITY,URINE MANUAL 1.015 (1.002-1.035)
[2022-03-17 02:56] LABS: BILIRUBIN, URINE MANUAL NEGATIVE (NEGATIVE); GLUCOSE, URINE (UA) MANUAL NEGATIVE (NEGATIVE); KETONE, URINE MANUAL NEGATIVE (NEGATIVE); UROBILINOGEN, URINE MANUAL NORMAL (NORMAL)
[2022-03-17 02:57] LABS: BLOOD URINE MANUAL POSITIVE (NEGATIVE); LEUKOCYTE ESTERASE, URINE MAN POSITIVE (NEGATIVE); NITRITE, URINE MANUAL NEGATIVE (NEGATIVE)
[2022-03-17 03:05] LABS: BACTERIA, URINE SMALL AMOUNT; RBC, URINE 30-40 /hpf (0-3); SQUAMOUS EPITHELIAL CELL URINE NONE SEEN /hpf (SMALL AMT); TRANSITIONAL EPI CELLS, URINE SMALL AMOUNT /hpf; WBC, URINE 40-50 /hpf (0-3)
[2022-03-17 03:10] LABS: HYALINE CAST, URINE NONE SEEN /lpf (0-1); MUCUS, URINE MOD AMOUNT (NEGATIVE)
[2022-03-17 03:13] LABS: AMORPHOUS SEDIMENT, URINE SMALL AMOUNT (NEGATIVE)
[2022-03-17] MEDS: guaiFENesin SYRUP 200MG 10ML UDC PO PRN (06:09)
[2022-03-17] MEDS: LEVOTHYROXINE 150MCG TABLET (0.15MG) PO SCH (06:10)
[2022-03-17] MEDS: PERCOCET 5MG/325MG TAB PO PRN ×3 (06:10→23:04)
[2022-03-17] MEDS: LEVALBUTEROL HFA 45MCG/ACT 15 GM INHALER INH SCH ×3 (07:22→19:48)
[2022-03-17] MEDS ORDERED: PILL CUTTER 1 EACH XX PRN (08:10)
[2022-03-17] MEDS: FERROUS SULFATE 325MG TAB PO SCH (08:45)
[2022-03-17] MEDS: VITAMIN D 1,000 INTERNATIONAL UNITS TABLET PO SCH (08:45)
[2022-03-17] MEDS: ASPIRIN 81MG ENTERIC TABLET PO SCH (08:45)
[2022-03-17] MEDS: SODIUM CHLORIDE 1 GM TAB PO SCH ×3 (08:45→17:14)
[2022-03-17] MEDS: ACETAMINOPHEN 500 MG TAB PO PRN ×2 (08:46→17:14)
[2022-03-17] MEDS: PANTOPRAZOLE 40MG TAB (PROTONIX) PO SCH (08:46)
[2022-03-17] MEDS: ESCITALOPRAM OXALATE 5MG TABLET (LEXAPRO) PO SCH (08:46)
[2022-03-17] MEDS: LIDOCAINE 5% (LIDODERM) PATCH TD SCH (08:47)
[2022-03-17] MEDS: AMIODARONE 200 MG TAB (PACERONE) PO SCH ×2 (08:50→20:03)
[2022-03-17] MEDS: METOPROLOL SUCC *XL* 12.5MG PER 1/2 TAB (TopROL *XL*) PO SCH (08:50)
[2022-03-17] MEDS: LISINOPRIL *2.5 MG* TAB PO SCH (08:50)
[2022-03-17] MEDS: HYOSCYAMINE SULFATE 0.125 MG SUBL TABLET PO SCH ×3 (09:00→20:03)
[2022-03-17 09:41] LABS: BASO # 0.1 10^3/uL (0.0-0.2); BASO % 1.2 % (0.0-1.0); EOS # 0.1 10^3/uL (0.0-0.5); EOS % 0.8 % (0.0-3.0); HEMOGLOBIN 8.6 g/dl (13.5-17.5); LYMPH # 0.4 10^3/uL (1.5-5.0); LYMPH % 6.5 % (24.0-44.0); MEAN CORPUSCULAR HEMOGLOBIN 28.8 pg (27.0-33.0); MEAN CORPUSCULAR HGB CONC 31.9 g/dl (32.0-36.5); MEAN CORPUSCULAR VOLUME 90.3 fl (80.0-96.0); MONO # 0.5 10^3/uL (0.0-0.8); MONO % 8.4 % (2.0-8.0); NEUTROPHILS # 4.9 10^3/uL (1.5-8.5); NEUTROPHILS % 82.6 % (36.0-66.0); PLATELET COUNT, AUTOMATED 479 10^3/uL (150-450); RED BLOOD COUNT 2.99 10^6/uL (4.30-6.10)
[2022-03-17 10:02] LABS: INR 1.91; PROTHROMBIN TIME 22.3 SECONDS (12.7-14.5)
[2022-03-17 10:31] LABS: BLOOD UREA NITROGEN 17 MG/DL (7-18); CALCIUM LEVEL 9.2 MG/DL (8.8-10.2); CARBON DIOXIDE LEVEL 26 MEQ/L (21-32); CHLORIDE LEVEL 97 MEQ/L (98-107); CREATININE FOR GFR 0.92 MG/DL (0.70-1.30); GLOMERULAR FILTRATION RATE > 60.0 (>42); GLUCOSE, FASTING 94 MG/DL (70-100); POTASSIUM SERUM 4.2 MEQ/L (3.5-5.1); SODIUM LEVEL 128 MEQ/L (136-145)
[2022-03-17 14:00] VITALS: BP 127/58
[2022-03-17] MEDS: WARFARIN SOD 2MG TAB PO SCH (17:14)
[2022-03-17] MEDS: DICLOFENAC EPOLAMINE 1.3 % PATCH TOP SCH (19:58)
[2022-03-17] MEDS: **NOTE PATIENT COMMENT** MISC XX SCH (19:58)
[2022-03-17 20:00] VITALS: BP 133/60
[2022-03-17] MEDS: TAMSULOSIN 0.4 MG CAP PO SCH (20:03)
[2022-03-17] MEDS: NORTRIPTYLINE 10 MG CAP PO SCH (20:03)
[2022-03-17] MEDS: ATORVASTATIN 20 MG TAB PO SCH (20:03)
[2022-03-18] MEDS: oxyCODONE 5MG TAB PO PRN (03:35)
[2022-03-18] MEDS: LEVOTHYROXINE 150MCG TABLET (0.15MG) PO SCH (05:22)
[2022-03-18 06:00] VITALS: BP 101/54
[2022-03-18 06:42] LABS: INR 2.25; PROTHROMBIN TIME 25.2 SECONDS (12.7-14.5)
[2022-03-18] MEDS: LEVALBUTEROL HFA 45MCG/ACT 15 GM INHALER INH SCH ×3 (07:25→19:39)
[2022-03-18] MEDS: SODIUM CHLORIDE 1 GM TAB PO SCH ×3 (08:58→17:21)
[2022-03-18] MEDS: ESCITALOPRAM OXALATE 5MG TABLET (LEXAPRO) PO SCH (08:59)
[2022-03-18] MEDS: HYOSCYAMINE SULFATE 0.125 MG SUBL TABLET PO SCH ×3 (08:59→20:07)
[2022-03-18] MEDS: FERROUS SULFATE 325MG TAB PO SCH (08:59)
[2022-03-18] MEDS: PANTOPRAZOLE 40MG TAB (PROTONIX) PO SCH (08:59)
[2022-03-18] MEDS: METOPROLOL SUCC *XL* 12.5MG PER 1/2 TAB (TopROL *XL*) PO SCH (09:00)
[2022-03-18] MEDS: ASPIRIN 81MG ENTERIC TABLET PO SCH (09:00)
[2022-03-18] MEDS: VITAMIN D 1,000 INTERNATIONAL UNITS TABLET PO SCH (09:00)
[2022-03-18] MEDS: LIDOCAINE 5% (LIDODERM) PATCH TD SCH (09:00)
[2022-03-18] MEDS: LISINOPRIL *2.5 MG* TAB PO SCH (09:00)
[2022-03-18] MEDS: PERCOCET 5MG/325MG TAB PO PRN ×2 (09:01→20:06)
[2022-03-18] MEDS: AMIODARONE 200 MG TAB (PACERONE) PO SCH ×2 (09:57→20:07)
[2022-03-18 14:00] VITALS: BP 121/59
[2022-03-18] MEDS: WARFARIN SOD 2MG TAB PO SCH (17:21)
[2022-03-18 20:00] VITALS: BP 100/50
[2022-03-18] MEDS: NORTRIPTYLINE 10 MG CAP PO SCH (20:06)
[2022-03-18] MEDS: TAMSULOSIN 0.4 MG CAP PO SCH (20:07)
[2022-03-18] MEDS: ATORVASTATIN 20 MG TAB PO SCH (20:07)
[2022-03-18] MEDS: DICLOFENAC EPOLAMINE 1.3 % PATCH TOP SCH (20:07)
[2022-03-18] MEDS: **NOTE PATIENT COMMENT** MISC XX SCH (20:08)
[2022-03-19] MEDS: LEVOTHYROXINE 150MCG TABLET (0.15MG) PO SCH (05:34)
[2022-03-19 06:00] VITALS: BP 122/60
[2022-03-19] MEDS: PERCOCET 5MG/325MG TAB PO PRN ×2 (06:09→20:16)
[2022-03-19 06:28] LABS: INR 2.77; PROTHROMBIN TIME 29.6 SECONDS (12.7-14.5)
[2022-03-19] MEDS: COMBIVENT RESPIMAT 100-20MCG INHALER 4GM INH PRN (07:14)
[2022-03-19] MEDS: LEVALBUTEROL HFA 45MCG/ACT 15 GM INHALER INH SCH ×3 (07:15→20:01)
[2022-03-19] MEDS: LIDOCAINE 5% (LIDODERM) PATCH TD SCH (09:00)
[2022-03-19] MEDS: HYOSCYAMINE SULFATE 0.125 MG SUBL TABLET PO SCH ×3 (09:57→20:15)
[2022-03-19] MEDS: FERROUS SULFATE 325MG TAB PO SCH (09:57)
[2022-03-19] MEDS: PANTOPRAZOLE 40MG TAB (PROTONIX) PO SCH (09:58)
[2022-03-19] MEDS: SODIUM CHLORIDE 1 GM TAB PO SCH ×3 (09:58→16:40)
[2022-03-19] MEDS: ESCITALOPRAM OXALATE 5MG TABLET (LEXAPRO) PO SCH (09:58)
[2022-03-19] MEDS: VITAMIN D 1,000 INTERNATIONAL UNITS TABLET PO SCH (09:58)
[2022-03-19] MEDS: ASPIRIN 81MG ENTERIC TABLET PO SCH (09:58)
[2022-03-19] MEDS: AMIODARONE 200 MG TAB (PACERONE) PO SCH ×2 (09:59→20:10)
[2022-03-19] MEDS: LISINOPRIL *2.5 MG* TAB PO SCH (09:59)
[2022-03-19] MEDS: METOPROLOL SUCC *XL* 12.5MG PER 1/2 TAB (TopROL *XL*) PO SCH (10:00)
[2022-03-19] MEDS: oxyCODONE 5MG TAB PO PRN (10:02)
[2022-03-19 14:00] VITALS: BP 124/59
[2022-03-19] MEDS: WARFARIN SOD 2MG TAB PO SCH (16:41)
[2022-03-19] MEDS: ONDANSETRON 4MG ORAL DISINTEGRATING TAB PO PRN (18:14)
[2022-03-19 19:29] VITALS: BP 105/56
[2022-03-19] MEDS: DICLOFENAC EPOLAMINE 1.3 % PATCH TOP SCH (20:09)
[2022-03-19] MEDS: **NOTE PATIENT COMMENT** MISC XX SCH (20:09)
[2022-03-19] MEDS: NORTRIPTYLINE 10 MG CAP PO SCH (20:15)
[2022-03-19] MEDS: ATORVASTATIN 20 MG TAB PO SCH (20:15)
[2022-03-19] MEDS: TAMSULOSIN 0.4 MG CAP PO SCH (20:19)
[2022-03-20] MEDS: COMBIVENT RESPIMAT 100-20MCG INHALER 4GM INH PRN (00:54)
[2022-03-20] MEDS: oxyCODONE 5MG TAB PO PRN (00:57)
[2022-03-20 04:57] LABS: BASO % 0.2 % (0.0-1.0); HEMATOCRIT 24.1 % (42.0-52.0); HEMOGLOBIN 7.8 g/dl (13.5-17.5); LYMPH # 0.4 10^3/uL (1.5-5.0); LYMPH % 2.3 % (24.0-44.0); MEAN CORPUSCULAR HEMOGLOBIN 29.1 pg (27.0-33.0); MEAN CORPUSCULAR HGB CONC 32.4 g/dl (32.0-36.5); MEAN CORPUSCULAR VOLUME 89.9 fl (80.0-96.0); MONO # 0.8 10^3/uL (0.0-0.8); MONO % 4.9 % (2.0-8.0); NEUTROPHILS # 14.2 10^3/uL (1.5-8.5); PLATELET COUNT, AUTOMATED 384 10^3/uL (150-450); RED BLOOD COUNT 2.68 10^6/uL (4.30-6.10); WHITE BLOOD COUNT 15.4 10^3/uL (4.0-10.0)
[2022-03-20 05:27] LABS: INR 3.53; PROTHROMBIN TIME 35.6 SECONDS (12.7-14.5)
[2022-03-20 05:30] LABS: BLOOD UREA NITROGEN 22 MG/DL (7-18); CALCIUM LEVEL 8.7 MG/DL (8.8-10.2); CARBON DIOXIDE LEVEL 23 MEQ/L (21-32); CHLORIDE LEVEL 103 MEQ/L (98-107); CREATININE FOR GFR 1.18 MG/DL (0.70-1.30); GLOMERULAR FILTRATION RATE > 60.0 (>42); GLUCOSE, FASTING 105 MG/DL (70-100); POTASSIUM SERUM 4.3 MEQ/L (3.5-5.1); SODIUM LEVEL 132 MEQ/L (136-145)
[2022-03-20] MEDS: LEVOTHYROXINE 150MCG TABLET (0.15MG) PO SCH (06:07)
[2022-03-20 06:15] VITALS: BP 101/55
[2022-03-20] MEDS: LEVALBUTEROL HFA 45MCG/ACT 15 GM INHALER INH SCH ×3 (07:22→20:52)
[2022-03-20] MEDS: SODIUM CHLORIDE 1 GM TAB PO SCH ×3 (08:19→17:40)
[2022-03-20] MEDS: VITAMIN D 1,000 INTERNATIONAL UNITS TABLET PO SCH (08:19)
[2022-03-20] MEDS: ASPIRIN 81MG ENTERIC TABLET PO SCH (08:19)
[2022-03-20] MEDS: FERROUS SULFATE 325MG TAB PO SCH (08:20)
[2022-03-20] MEDS: AMIODARONE 200 MG TAB (PACERONE) PO SCH ×2 (08:20→21:23)
[2022-03-20] MEDS: PANTOPRAZOLE 40MG VIAL IV SCH ×2 (08:20→21:22)
[2022-03-20] MEDS: LISINOPRIL *2.5 MG* TAB PO SCH (08:21)
[2022-03-20] MEDS: HYOSCYAMINE SULFATE 0.125 MG SUBL TABLET PO SCH (08:21)
[2022-03-20] MEDS: ESCITALOPRAM OXALATE 5MG TABLET (LEXAPRO) PO SCH (08:21)
[2022-03-20] MEDS: METOPROLOL SUCC *XL* 12.5MG PER 1/2 TAB (TopROL *XL*) PO SCH (08:22)
[2022-03-20] MEDS: LIDOCAINE 5% (LIDODERM) PATCH TD SCH (08:23)
[2022-03-20 11:10] LABS: HEMOGLOBIN 7.9 g/dl (13.5-17.5)
[2022-03-20 11:32] LABS: INR 3.77; PROTHROMBIN TIME 37.4 SECONDS (12.7-14.5)
[2022-03-20 14:00] VITALS: BP 111/55
[2022-03-20] MEDS: guaiFENesin SYRUP 200MG 10ML UDC PO PRN ×2 (15:38→21:22)
[2022-03-20] MEDS: PERCOCET 5MG/325MG TAB PO PRN ×2 (16:20→22:25)
[2022-03-20 16:36] LABS: HEMATOCRIT 24.2 % (42.0-52.0); HEMOGLOBIN 7.7 g/dl (13.5-17.5)
[2022-03-20 20:00] VITALS: BP 128/60
[2022-03-20] MEDS: ATORVASTATIN 20 MG TAB PO SCH (21:22)
[2022-03-20] MEDS: TAMSULOSIN 0.4 MG CAP PO SCH (21:22)
[2022-03-20] MEDS: NORTRIPTYLINE 10 MG CAP PO SCH (21:22)
[2022-03-20] MEDS: **NOTE PATIENT COMMENT** MISC XX SCH (21:23)
[2022-03-20] MEDS: DICLOFENAC EPOLAMINE 1.3 % PATCH TOP SCH (21:23)
[2022-03-20 22:18] LABS: HEMOGLOBIN 7.5 g/dl (13.5-17.5)
[2022-03-21 04:28] LABS: HEMATOCRIT 23.6 % (42.0-52.0); HEMOGLOBIN 7.6 g/dl (13.5-17.5)
[2022-03-21 04:44] LABS: PROTHROMBIN TIME 46.7 SECONDS (12.7-14.5)
[2022-03-21 04:52] LABS: INR 5.04
[2022-03-21] MEDS ORDERED: PHYTONADIONE 10MG/ML INJECTION (J3430) SQ ONE (04:55)
[2022-03-21 04:58] VITALS: BP 131/60
[2022-03-21] MEDS: LEVOTHYROXINE 150MCG TABLET (0.15MG) PO SCH (05:37)
[2022-03-21] MEDS: LEVALBUTEROL HFA 45MCG/ACT 15 GM INHALER INH SCH ×3 (07:27→20:00)
[2022-03-21] MEDS: IPRATROPIUM 0.5MG/ALBUTEROL 2.5MG INH SOL UD 3ML (DUONEB) NEB PRN (07:27)
[2022-03-21] MEDS: PANTOPRAZOLE 40MG VIAL IV SCH ×2 (08:20→22:20)
[2022-03-21] MEDS: ESCITALOPRAM OXALATE 5MG TABLET (LEXAPRO) PO SCH (08:20)
[2022-03-21] MEDS: AMIODARONE 200 MG TAB (PACERONE) PO SCH ×2 (08:21→22:18)
[2022-03-21] MEDS: FERROUS SULFATE 325MG TAB PO SCH (08:21)
[2022-03-21] MEDS: VITAMIN D 1,000 INTERNATIONAL UNITS TABLET PO SCH (08:21)
[2022-03-21] MEDS: guaiFENesin SYRUP 200MG 10ML UDC PO PRN ×2 (08:21→22:16)
[2022-03-21] MEDS: SODIUM CHLORIDE 1 GM TAB PO SCH ×3 (08:21→17:49)
[2022-03-21] MEDS: METOPROLOL SUCC *XL* 12.5MG PER 1/2 TAB (TopROL *XL*) PO SCH (08:21)
[2022-03-21] MEDS: LIDOCAINE 5% (LIDODERM) PATCH TD SCH (08:22)
[2022-03-21] MEDS: oxyCODONE 5MG TAB PO PRN (08:23)
[2022-03-21 12:48] LABS: INR 4.07; PROTHROMBIN TIME 39.7 SECONDS (12.7-14.5)
[2022-03-21 14:00] VITALS: BP 121/58
[2022-03-21] MEDS: PERCOCET 5MG/325MG TAB PO PRN ×2 (14:49→22:18)
[2022-03-21] MEDS ORDERED: diphenhydrAMINE 50MG/ML VIAL (J1200) IV PRN (15:10)
[2022-03-21] MEDS ORDERED: methylPREDNISolone 125MG 2ML VIAL IV PRN (15:10)
[2022-03-21] MEDS ORDERED: NS 1,000 ML IV SCH (15:10)
[2022-03-21] MEDS ORDERED: ALBUTEROL 90 MCG/ACT 8GM HFA INHALER INH PRN (15:10)
[2022-03-21] MEDS ORDERED: ALBUTEROL SULFATE 2.5 MG/0.5 ML INH NEB SOLN INH PRN (15:10)
[2022-03-21] MEDS ORDERED: EPINEPHrine INJ 1 MG/ML 1ML AMP IM PRN (15:10)
[2022-03-21] MEDS ORDERED: BEBTELOVIMAB 175MG 2ML VIAL (EUA) IV ONE (17:00)
[2022-03-21 17:49] VITALS: BP 133/60
[2022-03-21 18:04] VITALS: BP 140/64
[2022-03-21 18:49] VITALS: BP 129/63
[2022-03-21 20:38] VITALS: BP 128/63
[2022-03-21] MEDS ORDERED: NIRMATRELVIR/RITONAVIR CO-PACK (EMERGENCY USE AUTH) PO SCH (21:00)
[2022-03-21] MEDS: NORTRIPTYLINE 10 MG CAP PO SCH (22:17)
[2022-03-21] MEDS: ATORVASTATIN 20 MG TAB PO SCH (22:17)
[2022-03-21] MEDS: TAMSULOSIN 0.4 MG CAP PO SCH (22:19)
[2022-03-21] MEDS: **NOTE PATIENT COMMENT** MISC XX SCH (22:20)
[2022-03-22] MEDS: PERCOCET 5MG/325MG TAB PO PRN ×3 (04:22→17:16)
[2022-03-22] MEDS: guaiFENesin SYRUP 200MG 10ML UDC PO PRN (04:22)
[2022-03-22 05:20] VITALS: BP 130/60
[2022-03-22] MEDS: LEVOTHYROXINE 150MCG TABLET (0.15MG) PO SCH (05:36)
[2022-03-22] MEDS: LEVALBUTEROL HFA 45MCG/ACT 15 GM INHALER INH SCH ×3 (07:47→20:00)
[2022-03-22 08:11] LABS: INR 3.06; PROTHROMBIN TIME 31.9 SECONDS (12.7-14.5)
[2022-03-22 08:49] LABS: BLOOD UREA NITROGEN 15 MG/DL (7-18); CARBON DIOXIDE LEVEL 25 MEQ/L (21-32); CHLORIDE LEVEL 108 MEQ/L (98-107); CREATININE FOR GFR 0.79 MG/DL (0.70-1.30); GLOMERULAR FILTRATION RATE > 60.0 (>42); GLUCOSE, FASTING 85 MG/DL (70-100); POTASSIUM SERUM 4.1 MEQ/L (3.5-5.1); SODIUM LEVEL 136 MEQ/L (136-145)
[2022-03-22] MEDS: LIDOCAINE 5% (LIDODERM) PATCH TD SCH (09:25)
[2022-03-22] MEDS: VITAMIN D 1,000 INTERNATIONAL UNITS TABLET PO SCH (09:26)
[2022-03-22] MEDS: SODIUM CHLORIDE 1 GM TAB PO SCH ×3 (09:26→17:16)
[2022-03-22] MEDS: PANTOPRAZOLE 40MG TAB (PROTONIX) PO SCH (09:26)
[2022-03-22] MEDS: ESCITALOPRAM OXALATE 5MG TABLET (LEXAPRO) PO SCH (09:26)
[2022-03-22] MEDS: AMIODARONE 200 MG TAB (PACERONE) PO SCH ×2 (09:26→20:07)
[2022-03-22] MEDS: METOPROLOL SUCC *XL* 12.5MG PER 1/2 TAB (TopROL *XL*) PO SCH (09:26)
[2022-03-22] MEDS: FERROUS SULFATE 325MG TAB PO SCH (09:26)
[2022-03-22] MEDS: ASPIRIN 81MG ENTERIC TABLET PO SCH (09:52)
[2022-03-22 12:17] LABS: HEMATOCRIT 25.7 % (42.0-52.0)
[2022-03-22 14:00] VITALS: BP 127/58
[2022-03-22] MEDS: ACETAMINOPHEN 500 MG TAB PO PRN (14:58)
[2022-03-22] MEDS ORDERED: FUROSEMIDE 20MG/2ML VIAL (J1940) IV ONE (15:00)
[2022-03-22 20:00] VITALS: BP 125/60
[2022-03-22] MEDS: guaiFENesin ER 600 MG TAB PO SCH (20:07)
[2022-03-22] MEDS: ATORVASTATIN 20 MG TAB PO SCH (20:07)
[2022-03-22] MEDS: NORTRIPTYLINE 10 MG CAP PO SCH (20:07)
[2022-03-22] MEDS: TAMSULOSIN 0.4 MG CAP PO SCH (20:07)
[2022-03-22] MEDS: **NOTE PATIENT COMMENT** MISC XX SCH (20:08)
[2022-03-22] MEDS: DICLOFENAC EPOLAMINE 1.3 % PATCH TOP SCH (20:09)
[2022-03-22] MEDS: oxyCODONE 5MG TAB PO PRN (21:44)
[2022-03-23] MEDS: LEVOTHYROXINE 150MCG TABLET (0.15MG) PO SCH (05:00)
[2022-03-23] MEDS: PERCOCET 5MG/325MG TAB PO PRN (05:01)
[2022-03-23 06:00] VITALS: BP 146/65
[2022-03-23] MEDS: ASPIRIN 81MG ENTERIC TABLET PO SCH (08:04)
[2022-03-23] MEDS: SODIUM CHLORIDE 1 GM TAB PO SCH ×3 (08:04→17:37)
[2022-03-23] MEDS: VITAMIN D 1,000 INTERNATIONAL UNITS TABLET PO SCH (08:05)
[2022-03-23] MEDS: LIDOCAINE 5% (LIDODERM) PATCH TD SCH (08:05)
[2022-03-23] MEDS: ESCITALOPRAM OXALATE 5MG TABLET (LEXAPRO) PO SCH (08:05)
[2022-03-23] MEDS: AMIODARONE 200 MG TAB (PACERONE) PO SCH ×2 (08:05→20:50)
[2022-03-23] MEDS: ACETAMINOPHEN 500 MG TAB PO PRN (08:05)
[2022-03-23] MEDS: PANTOPRAZOLE 40MG TAB (PROTONIX) PO SCH (08:05)
[2022-03-23] MEDS: guaiFENesin ER 600 MG TAB PO SCH ×2 (08:05→20:50)
[2022-03-23] MEDS: METOPROLOL SUCC *XL* 12.5MG PER 1/2 TAB (TopROL *XL*) PO SCH (08:05)
[2022-03-23] MEDS: FERROUS SULFATE 325MG TAB PO SCH (08:05)
[2022-03-23] MEDS: LEVALBUTEROL HFA 45MCG/ACT 15 GM INHALER INH SCH ×3 (08:32→20:27)
[2022-03-23 09:31] LABS: INR 3.06
[2022-03-23] MEDS: MORPHINE 15 MG SA TAB PO SCH ×2 (10:10→20:49)
[2022-03-23] MEDS: CALCITONIN NASAL SPRAY 3.7 ML BTL SCH (10:10)
[2022-03-23 14:00] VITALS: BP 132/62
[2022-03-23] MEDS: MORPHINE 30 MG TAB **MSIR PO PRN ×2 (15:01→23:34)
[2022-03-23] MEDS ORDERED: POTASSIUM CHLORIDE 10MEQ SR TABLET PO ONE (15:20)
[2022-03-23] MEDS ORDERED: FUROSEMIDE 40MG/4ML VIAL (J1940) IV ONE (15:20)
[2022-03-23 20:00] VITALS: BP 118/58
[2022-03-23] MEDS: TAMSULOSIN 0.4 MG CAP PO SCH (20:49)
[2022-03-23] MEDS: ATORVASTATIN 20 MG TAB PO SCH (20:50)
[2022-03-23] MEDS: NORTRIPTYLINE 10 MG CAP PO SCH (20:50)
[2022-03-23] MEDS: DICLOFENAC EPOLAMINE 1.3 % PATCH TOP SCH (20:51)
[2022-03-23] MEDS: **NOTE PATIENT COMMENT** MISC XX SCH (20:51)
[2022-03-24] MEDS: LEVOTHYROXINE 150MCG TABLET (0.15MG) PO SCH (05:30)
[2022-03-24] MEDS: MORPHINE 30 MG TAB **MSIR PO PRN (05:30)
[2022-03-24 06:00] VITALS: BP 121/60
[2022-03-24 07:36] LABS: INR 3.24; PROTHROMBIN TIME 33.4 SECONDS (12.7-14.5)
[2022-03-24] MEDS: LEVALBUTEROL HFA 45MCG/ACT 15 GM INHALER INH SCH ×3 (07:59→21:07)
[2022-03-24] MEDS: LIDOCAINE 5% (LIDODERM) PATCH TD SCH (09:00)
[2022-03-24] MEDS: PANTOPRAZOLE 40MG TAB (PROTONIX) PO SCH (09:25)
[2022-03-24] MEDS: FERROUS SULFATE 325MG TAB PO SCH (09:25)
[2022-03-24] MEDS: ASPIRIN 81MG ENTERIC TABLET PO SCH (09:25)
[2022-03-24] MEDS: AMIODARONE 200 MG TAB (PACERONE) PO SCH ×2 (09:25→21:10)
[2022-03-24] MEDS: ESCITALOPRAM OXALATE 5MG TABLET (LEXAPRO) PO SCH (09:25)
[2022-03-24] MEDS: SODIUM CHLORIDE 1 GM TAB PO SCH ×3 (09:26→21:11)
[2022-03-24] MEDS: VITAMIN D 1,000 INTERNATIONAL UNITS TABLET PO SCH (09:26)
[2022-03-24] MEDS: MORPHINE 15 MG SA TAB PO SCH ×2 (09:26→21:27)
[2022-03-24] MEDS: METOPROLOL SUCC *XL* 12.5MG PER 1/2 TAB (TopROL *XL*) PO SCH (09:26)
[2022-03-24] MEDS: guaiFENesin ER 600 MG TAB PO SCH ×2 (09:26→21:10)
[2022-03-24] MEDS: CALCITONIN NASAL SPRAY 3.7 ML BTL SCH (09:40)
[2022-03-24 13:52] VITALS: BP 122/66
[2022-03-24 20:00] VITALS: BP 123/56
[2022-03-24] MEDS: BACLOFEN 5MG PER 1/2 TABLET PO SCH (21:10)
[2022-03-24] MEDS: NORTRIPTYLINE 10 MG CAP PO SCH (21:10)
[2022-03-24] MEDS: DICLOFENAC EPOLAMINE 1.3 % PATCH TOP SCH (21:11)
[2022-03-24] MEDS: TAMSULOSIN 0.4 MG CAP PO SCH (21:11)
[2022-03-24] MEDS: ATORVASTATIN 20 MG TAB PO SCH (21:11)
[2022-03-24] MEDS: **NOTE PATIENT COMMENT** MISC XX SCH (21:27)
[2022-03-24] MEDS: ACETAMINOPHEN 500 MG TAB PO PRN (23:46)
[2022-03-25] MEDS: LEVOTHYROXINE 150MCG TABLET (0.15MG) PO SCH (05:27)
[2022-03-25] MEDS: MORPHINE 30 MG TAB **MSIR PO PRN ×2 (05:43→12:47)
[2022-03-25 06:00] VITALS: BP 130/62
[2022-03-25 07:35] LABS: HEMATOCRIT 25.9 % (42.0-52.0); HEMOGLOBIN 8.3 g/dl (13.5-17.5); MEAN CORPUSCULAR HEMOGLOBIN 28.8 pg (27.0-33.0); MEAN CORPUSCULAR VOLUME 89.9 fl (80.0-96.0); PLATELET COUNT, AUTOMATED 485 10^3/uL (150-450); RED BLOOD COUNT 2.88 10^6/uL (4.30-6.10); WHITE BLOOD COUNT 5.4 10^3/uL (4.0-10.0)
[2022-03-25] MEDS: LEVALBUTEROL HFA 45MCG/ACT 15 GM INHALER INH SCH (07:35)
[2022-03-25] MEDS: guaiFENesin ER 600 MG TAB PO SCH ×2 (08:19→21:07)
[2022-03-25] MEDS: MORPHINE 15 MG SA TAB PO SCH ×2 (08:19→21:07)
[2022-03-25] MEDS: SODIUM CHLORIDE 1 GM TAB PO SCH (08:19)
[2022-03-25] MEDS: FERROUS SULFATE 325MG TAB PO SCH (08:20)
[2022-03-25] MEDS: ESCITALOPRAM OXALATE 5MG TABLET (LEXAPRO) PO SCH (08:20)
[2022-03-25] MEDS: AMIODARONE 200 MG TAB (PACERONE) PO SCH ×2 (08:20→21:07)
[2022-03-25] MEDS: PANTOPRAZOLE 40MG TAB (PROTONIX) PO SCH (08:20)
[2022-03-25] MEDS: METOPROLOL SUCC *XL* 12.5MG PER 1/2 TAB (TopROL *XL*) PO SCH (08:20)
[2022-03-25] MEDS: BACLOFEN 5MG PER 1/2 TABLET PO SCH ×2 (08:20→21:07)
[2022-03-25] MEDS: ASPIRIN 81MG ENTERIC TABLET PO SCH (08:20)
[2022-03-25] MEDS: VITAMIN D 1,000 INTERNATIONAL UNITS TABLET PO SCH (08:20)
[2022-03-25] MEDS: CALCITONIN NASAL SPRAY 3.7 ML BTL SCH (08:21)
[2022-03-25] MEDS: LIDOCAINE 5% (LIDODERM) PATCH TD SCH (08:21)
[2022-03-25 08:34] LABS: ALBUMIN 2.5 GM/DL (3.2-5.2); ALT/SGPT 21 U/L (12-78); BILIRUBIN,TOTAL 0.5 MG/DL (0.2-1.0); BLOOD UREA NITROGEN 14 MG/DL (7-18); CALCIUM LEVEL 8.8 MG/DL (8.8-10.2); CARBON DIOXIDE LEVEL 26 MEQ/L (21-32); CHLORIDE LEVEL 103 MEQ/L (98-107); CREATININE FOR GFR 0.72 MG/DL (0.70-1.30); GLOMERULAR FILTRATION RATE > 60.0 (>42); GLUCOSE, FASTING 83 MG/DL (70-100); POTASSIUM SERUM 4.6 MEQ/L (3.5-5.1); SODIUM LEVEL 133 MEQ/L (136-145); TOTAL PROTEIN 5.7 GM/DL (6.4-8.2)
[2022-03-25 08:36] LABS: INR 3.16; PROTHROMBIN TIME 32.7 SECONDS (12.7-14.5)
[2022-03-25] MEDS ORDERED: FUROSEMIDE 40MG/4ML VIAL (J1940) IV SCH (09:00)
[2022-03-25] MEDS ORDERED: traMADol 50 MG TAB PO PRN (13:15)
[2022-03-25 15:02] VITALS: BP 128/58
[2022-03-25] MEDS: IPRATROPIUM 0.5MG/ALBUTEROL 2.5MG INH SOL UD 3ML (DUONEB) NEB PRN (15:44)
[2022-03-25] MEDS: ALBUTEROL SULFATE 2.5 MG/0.5 ML INH NEB SOLN INH SCH ×3 (15:45→23:25)
[2022-03-25] MEDS: SODIUM CHLORIDE HYPERTONIC 3% 15ML NEB SOL INH SCH ×3 (15:45→23:25)
[2022-03-25] MEDS: HYDROmorphone 4MG TABLET PO PRN (18:02)
[2022-03-25 20:00] VITALS: BP 112/54
[2022-03-25] MEDS: ATORVASTATIN 20 MG TAB PO SCH (21:07)
[2022-03-25] MEDS: NORTRIPTYLINE 10 MG CAP PO SCH (21:07)
[2022-03-25] MEDS: DICLOFENAC EPOLAMINE 1.3 % PATCH TOP SCH (21:07)
[2022-03-25] MEDS: TAMSULOSIN 0.4 MG CAP PO SCH (21:07)
[2022-03-25] MEDS: **NOTE PATIENT COMMENT** MISC XX SCH (21:08)
[2022-03-26] MEDS: ALBUTEROL SULFATE 2.5 MG/0.5 ML INH NEB SOLN INH SCH ×5 (03:28→20:55)
[2022-03-26] MEDS: SODIUM CHLORIDE HYPERTONIC 3% 15ML NEB SOL INH SCH ×5 (03:28→20:55)
[2022-03-26] MEDS: LEVOTHYROXINE 150MCG TABLET (0.15MG) PO SCH (05:46)
[2022-03-26] MEDS: HYDROmorphone 4MG TABLET PO PRN ×2 (05:49→12:34)
[2022-03-26 06:00] VITALS: BP 116/58
[2022-03-26 07:23] LABS: INR 3.37; PROTHROMBIN TIME 34.4 SECONDS (12.7-14.5)
[2022-03-26 07:59] LABS: BLOOD UREA NITROGEN 13 MG/DL (7-18); CALCIUM LEVEL 8.3 MG/DL (8.8-10.2); CARBON DIOXIDE LEVEL 26 MEQ/L (21-32); CHLORIDE LEVEL 101 MEQ/L (98-107); CREATININE FOR GFR 0.79 MG/DL (0.70-1.30); GLOMERULAR FILTRATION RATE > 60.0 (>42); GLUCOSE, FASTING 82 MG/DL (70-100); SODIUM LEVEL 133 MEQ/L (136-145)
[2022-03-26] MEDS: DOCUSATE SODIUM 100MG CAPSULE PO SCH ×2 (09:00→21:43)
[2022-03-26] MEDS: BACLOFEN 5MG PER 1/2 TABLET PO SCH ×3 (09:12→21:43)
[2022-03-26] MEDS: guaiFENesin ER 600 MG TAB PO SCH ×2 (09:12→21:44)
[2022-03-26] MEDS: MORPHINE 15 MG SA TAB PO SCH ×2 (09:12→21:45)
[2022-03-26] MEDS: FERROUS SULFATE 325MG TAB PO SCH (09:12)
[2022-03-26] MEDS: AMIODARONE 200 MG TAB (PACERONE) PO SCH ×2 (09:12→21:00)
[2022-03-26] MEDS: ESCITALOPRAM OXALATE 5MG TABLET (LEXAPRO) PO SCH (09:13)
[2022-03-26] MEDS: ASPIRIN 81MG ENTERIC TABLET PO SCH (09:13)
[2022-03-26] MEDS: LIDOCAINE 5% (LIDODERM) PATCH TD SCH (09:13)
[2022-03-26] MEDS: VITAMIN D 1,000 INTERNATIONAL UNITS TABLET PO SCH (09:13)
[2022-03-26] MEDS: METOPROLOL SUCC *XL* 12.5MG PER 1/2 TAB (TopROL *XL*) PO SCH (09:13)
[2022-03-26] MEDS: PANTOPRAZOLE 40MG TAB (PROTONIX) PO SCH (09:13)
[2022-03-26] MEDS: CALCITONIN NASAL SPRAY 3.7 ML BTL SCH (09:13)
[2022-03-26] MEDS ORDERED: FUROSEMIDE 20MG/2ML VIAL (J1940) IV ONE (09:45)
[2022-03-26] MEDS: MIRALAX *UNIT DOSE* 17GM PACKET PO SCH (09:59)
[2022-03-26] MEDS: IPRATROPIUM 0.5MG/ALBUTEROL 2.5MG INH SOL UD 3ML (DUONEB) NEB PRN (11:19)
[2022-03-26] MEDS ORDERED: KETOROLAC 30 MG/ML 1ML VIAL IV PRN (13:55)
[2022-03-26 14:00] VITALS: BP 90/45
[2022-03-26] MEDS: ACETAMINOPHEN 500 MG TAB PO SCH ×2 (14:19→21:45)
[2022-03-26 20:48] VITALS: BP 89/53
[2022-03-26] MEDS: TAMSULOSIN 0.4 MG CAP PO SCH (21:43)
[2022-03-26] MEDS: NORTRIPTYLINE 10 MG CAP PO SCH (21:44)
[2022-03-26] MEDS: ATORVASTATIN 20 MG TAB PO SCH (21:44)
[2022-03-26] MEDS: **NOTE PATIENT COMMENT** MISC XX SCH (21:46)
[2022-03-27] MEDS: ALBUTEROL SULFATE 2.5 MG/0.5 ML INH NEB SOLN INH SCH ×6 (04:00→19:56)
[2022-03-27] MEDS: SODIUM CHLORIDE HYPERTONIC 3% 15ML NEB SOL INH SCH ×6 (04:00→19:56)
[2022-03-27 05:51] VITALS: BP 119/57
[2022-03-27] MEDS: LEVOTHYROXINE 150MCG TABLET (0.15MG) PO SCH (05:58)
[2022-03-27] MEDS: ACETAMINOPHEN 500 MG TAB PO SCH ×3 (05:59→21:38)
[2022-03-27] MEDS: HYDROmorphone 4MG TABLET PO PRN ×2 (06:06→15:58)
[2022-03-27 06:39] LABS: HEMATOCRIT 24.6 % (42.0-52.0); MEAN CORPUSCULAR HEMOGLOBIN 29.1 pg (27.0-33.0); MEAN CORPUSCULAR HGB CONC 32.5 g/dl (32.0-36.5); MEAN CORPUSCULAR VOLUME 89.5 fl (80.0-96.0); PLATELET COUNT, AUTOMATED 505 10^3/uL (150-450); RED BLOOD COUNT 2.75 10^6/uL (4.30-6.10); WHITE BLOOD COUNT 7.2 10^3/uL (4.0-10.0)
[2022-03-27 07:29] LABS: ALBUMIN 2.5 GM/DL (3.2-5.2); ALT/SGPT 20 U/L (12-78); BILIRUBIN,TOTAL 0.6 MG/DL (0.2-1.0); BLOOD UREA NITROGEN 19 MG/DL (7-18); CALCIUM LEVEL 8.5 MG/DL (8.8-10.2); CARBON DIOXIDE LEVEL 25 MEQ/L (21-32); CHLORIDE LEVEL 100 MEQ/L (98-107); GLOMERULAR FILTRATION RATE > 60.0 (>42); GLUCOSE, FASTING 102 MG/DL (70-100); NT-PRO BNP 2354 PG/ML (<450); POTASSIUM SERUM 4.1 MEQ/L (3.5-5.1); SODIUM LEVEL 132 MEQ/L (136-145); TOTAL PROTEIN 5.6 GM/DL (6.4-8.2)
[2022-03-27] MEDS: MIRALAX *UNIT DOSE* 17GM PACKET PO SCH (08:59)
[2022-03-27] MEDS: METOPROLOL SUCC *XL* 12.5MG PER 1/2 TAB (TopROL *XL*) PO SCH (09:00)
[2022-03-27] MEDS: FERROUS SULFATE 325MG TAB PO SCH (09:00)
[2022-03-27] MEDS: DOCUSATE SODIUM 100MG CAPSULE PO SCH ×2 (09:00→21:36)
[2022-03-27] MEDS: AMIODARONE 200 MG TAB (PACERONE) PO SCH ×2 (09:00→20:49)
[2022-03-27] MEDS: PANTOPRAZOLE 40MG TAB (PROTONIX) PO SCH (09:00)
[2022-03-27] MEDS: MORPHINE 15 MG SA TAB PO SCH ×2 (09:00→21:39)
[2022-03-27] MEDS: VITAMIN D 1,000 INTERNATIONAL UNITS TABLET PO SCH (09:00)
[2022-03-27] MEDS: ESCITALOPRAM OXALATE 5MG TABLET (LEXAPRO) PO SCH (09:00)
[2022-03-27] MEDS: ASPIRIN 81MG ENTERIC TABLET PO SCH (09:00)
[2022-03-27] MEDS: guaiFENesin ER 600 MG TAB PO SCH ×2 (09:00→21:36)
[2022-03-27] MEDS: BACLOFEN 5MG PER 1/2 TABLET PO SCH ×3 (09:00→21:37)
[2022-03-27] MEDS: LIDOCAINE 5% (LIDODERM) PATCH TD SCH (09:01)
[2022-03-27] MEDS: CALCITONIN NASAL SPRAY 3.7 ML BTL SCH (09:01)
[2022-03-27 14:00] VITALS: BP 100/50
[2022-03-27] MEDS: predniSONE 5 MG TAB PO SCH (15:01)
[2022-03-27 20:00] VITALS: BP 100/50
[2022-03-27] MEDS: **NOTE PATIENT COMMENT** MISC XX SCH (20:49)
[2022-03-27] MEDS: MESALAMINE 1,000 MG SUPP PR SCH (21:36)
[2022-03-27] MEDS: NORTRIPTYLINE 10 MG CAP PO SCH (21:37)
[2022-03-27] MEDS: ATORVASTATIN 20 MG TAB PO SCH (21:37)
[2022-03-27] MEDS: TAMSULOSIN 0.4 MG CAP PO SCH (21:38)
[2022-03-28] MEDS: SODIUM CHLORIDE HYPERTONIC 3% 15ML NEB SOL INH SCH ×7 (00:01→23:33)
[2022-03-28] MEDS: ALBUTEROL SULFATE 2.5 MG/0.5 ML INH NEB SOLN INH SCH ×7 (00:01→23:33)
[2022-03-28] MEDS: ACETAMINOPHEN 500 MG TAB PO SCH ×2 (05:58→15:16)
[2022-03-28] MEDS: LEVOTHYROXINE 150MCG TABLET (0.15MG) PO SCH (05:58)
[2022-03-28] MEDS: HYDROmorphone 4MG TABLET PO PRN ×2 (05:58→12:19)
[2022-03-28 06:00] VITALS: BP 104/54
[2022-03-28 07:56] LABS: INR 3.32
[2022-03-28 08:09] LABS: ALBUMIN 2.4 GM/DL (3.2-5.2); ALT/SGPT 21 U/L (12-78); BILIRUBIN,TOTAL 0.7 MG/DL (0.2-1.0); BLOOD UREA NITROGEN 17 MG/DL (7-18); CALCIUM LEVEL 8.6 MG/DL (8.8-10.2); CARBON DIOXIDE LEVEL 27 MEQ/L (21-32); CHLORIDE LEVEL 99 MEQ/L (98-107); CREATININE FOR GFR 0.92 MG/DL (0.70-1.30); GLOMERULAR FILTRATION RATE > 60.0 (>42); GLUCOSE, FASTING 86 MG/DL (70-100); MAGNESIUM LEVEL 1.9 MG/DL (1.8-2.4); POTASSIUM SERUM 4.4 MEQ/L (3.5-5.1); SODIUM LEVEL 131 MEQ/L (136-145); TOTAL PROTEIN 5.8 GM/DL (6.4-8.2)
[2022-03-28] MEDS: METOPROLOL SUCC *XL* 12.5MG PER 1/2 TAB (TopROL *XL*) PO SCH (09:00)
[2022-03-28] MEDS: LIDOCAINE 5% (LIDODERM) PATCH TD SCH (09:00)
[2022-03-28] MEDS: FERROUS SULFATE 325MG TAB PO SCH (09:45)
[2022-03-28] MEDS: DOCUSATE SODIUM 100MG CAPSULE PO SCH ×2 (09:45→21:08)
[2022-03-28] MEDS: PANTOPRAZOLE 40MG TAB (PROTONIX) PO SCH (09:45)
[2022-03-28] MEDS: ESCITALOPRAM OXALATE 5MG TABLET (LEXAPRO) PO SCH (09:45)
[2022-03-28] MEDS: VITAMIN D 1,000 INTERNATIONAL UNITS TABLET PO SCH (09:46)
[2022-03-28] MEDS: MIRALAX *UNIT DOSE* 17GM PACKET PO SCH (09:46)
[2022-03-28] MEDS: AMIODARONE 200 MG TAB (PACERONE) PO SCH ×2 (09:46→21:09)
[2022-03-28] MEDS: BACLOFEN 5MG PER 1/2 TABLET PO SCH ×3 (09:46→21:07)
[2022-03-28] MEDS: ONDANSETRON 4MG ORAL DISINTEGRATING TAB PO PRN (09:46)
[2022-03-28] MEDS: predniSONE 5 MG TAB PO SCH (09:46)
[2022-03-28] MEDS: guaiFENesin ER 600 MG TAB PO SCH ×2 (09:46→21:08)
[2022-03-28] MEDS: MORPHINE 15 MG SA TAB PO SCH ×2 (09:47→21:08)
[2022-03-28] MEDS: CALCITONIN NASAL SPRAY 3.7 ML BTL SCH (09:49)
[2022-03-28 14:00] VITALS: BP 118/56
[2022-03-28] MEDS: COMBIVENT RESPIMAT 100-20MCG INHALER 4GM INH PRN (15:04)
[2022-03-28 20:00] VITALS: BP 122/60
[2022-03-28] MEDS: ATORVASTATIN 20 MG TAB PO SCH (21:08)
[2022-03-28] MEDS: MESALAMINE 1,000 MG SUPP PR SCH (21:08)
[2022-03-28] MEDS: NORTRIPTYLINE 10 MG CAP PO SCH (21:08)
[2022-03-28] MEDS: **NOTE PATIENT COMMENT** MISC XX SCH (21:09)
[2022-03-28] MEDS: TAMSULOSIN 0.4 MG CAP PO SCH (21:09)
[2022-03-29] MEDS: SODIUM CHLORIDE HYPERTONIC 3% 15ML NEB SOL INH SCH ×5 (03:11→19:47)
[2022-03-29] MEDS: ALBUTEROL SULFATE 2.5 MG/0.5 ML INH NEB SOLN INH SCH ×5 (03:11→19:47)
[2022-03-29] MEDS: HYDROmorphone 4MG TABLET PO PRN ×2 (05:52→13:35)
[2022-03-29] MEDS: LEVOTHYROXINE 150MCG TABLET (0.15MG) PO SCH (05:52)
[2022-03-29 06:00] VITALS: BP 132/65
[2022-03-29] MEDS ORDERED: ACETAMINOPHEN 500 MG TAB PO PRN (06:00)
[2022-03-29] MEDS: DOCUSATE SODIUM 100MG CAPSULE PO SCH ×2 (09:00→20:40)
[2022-03-29] MEDS: LIDOCAINE 5% (LIDODERM) PATCH TD SCH (09:49)
[2022-03-29] MEDS: MIRALAX *UNIT DOSE* 17GM PACKET PO SCH (09:49)
[2022-03-29] MEDS: ESCITALOPRAM OXALATE 5MG TABLET (LEXAPRO) PO SCH (09:50)
[2022-03-29] MEDS: BACLOFEN 5MG PER 1/2 TABLET PO SCH ×3 (09:50→20:39)
[2022-03-29] MEDS: METOPROLOL SUCC *XL* 12.5MG PER 1/2 TAB (TopROL *XL*) PO SCH (09:50)
[2022-03-29] MEDS: predniSONE 5 MG TAB PO SCH (09:50)
[2022-03-29] MEDS: guaiFENesin ER 600 MG TAB PO SCH ×2 (09:50→20:39)
[2022-03-29] MEDS: AMIODARONE 200 MG TAB (PACERONE) PO SCH ×2 (09:50→20:39)
[2022-03-29] MEDS: FERROUS SULFATE 325MG TAB PO SCH (09:51)
[2022-03-29] MEDS: PANTOPRAZOLE 40MG TAB (PROTONIX) PO SCH (09:51)
[2022-03-29] MEDS: CALCITONIN NASAL SPRAY 3.7 ML BTL SCH (09:51)
[2022-03-29] MEDS: VITAMIN D 1,000 INTERNATIONAL UNITS TABLET PO SCH (09:51)
[2022-03-29] MEDS: MORPHINE 15 MG SA TAB PO SCH ×2 (09:51→20:40)
[2022-03-29 14:45] VITALS: BP 119/59
[2022-03-29 20:00] VITALS: BP 101/54
[2022-03-29] MEDS: TAMSULOSIN 0.4 MG CAP PO SCH (20:39)
[2022-03-29] MEDS: NORTRIPTYLINE 10 MG CAP PO SCH (20:39)
[2022-03-29] MEDS: ATORVASTATIN 20 MG TAB PO SCH (20:40)
[2022-03-29] MEDS: MESALAMINE 1,000 MG SUPP PR SCH (20:40)
[2022-03-29] MEDS: **NOTE PATIENT COMMENT** MISC XX SCH (20:41)
[2022-03-30] MEDS: SODIUM CHLORIDE HYPERTONIC 3% 15ML NEB SOL INH SCH ×6 (00:28→20:00)
[2022-03-30] MEDS: ALBUTEROL SULFATE 2.5 MG/0.5 ML INH NEB SOLN INH SCH ×6 (00:28→20:00)
[2022-03-30 05:35] VITALS: BP 103/51
[2022-03-30] MEDS: LEVOTHYROXINE 150MCG TABLET (0.15MG) PO SCH (05:41)
[2022-03-30] MEDS: AMIODARONE 200 MG TAB (PACERONE) PO SCH ×2 (09:00→20:56)
[2022-03-30] MEDS: LIDOCAINE 5% (LIDODERM) PATCH TD SCH (09:00)
[2022-03-30] MEDS: DOCUSATE SODIUM 100MG CAPSULE PO SCH ×2 (09:00→20:54)
[2022-03-30] MEDS: METOPROLOL SUCC *XL* 12.5MG PER 1/2 TAB (TopROL *XL*) PO SCH (09:00)
[2022-03-30] MEDS: guaiFENesin ER 600 MG TAB PO SCH ×2 (09:14→20:55)
[2022-03-30] MEDS: PANTOPRAZOLE 40MG TAB (PROTONIX) PO SCH (09:14)
[2022-03-30] MEDS: predniSONE 5 MG TAB PO SCH (09:14)
[2022-03-30] MEDS: BACLOFEN 5MG PER 1/2 TABLET PO SCH ×3 (09:15→20:55)
[2022-03-30] MEDS: ESCITALOPRAM OXALATE 5MG TABLET (LEXAPRO) PO SCH (09:15)
[2022-03-30] MEDS: MORPHINE 15 MG SA TAB PO SCH ×2 (09:15→20:56)
[2022-03-30] MEDS: VITAMIN D 1,000 INTERNATIONAL UNITS TABLET PO SCH (09:15)
[2022-03-30] MEDS: FERROUS SULFATE 325MG TAB PO SCH (09:16)
[2022-03-30] MEDS: MIRALAX *UNIT DOSE* 17GM PACKET PO SCH (09:16)
[2022-03-30] MEDS: CALCITONIN NASAL SPRAY 3.7 ML BTL SCH (09:22)
[2022-03-30 14:15] VITALS: BP 102/50
[2022-03-30] MEDS: HYDROmorphone 4MG TABLET PO PRN (14:22)
[2022-03-30 19:45] VITALS: BP_SYST 114; BP_SYST 130; BP_DIAS 54; BP_DIAS 71
[2022-03-30] MEDS: **NOTE PATIENT COMMENT** MISC XX SCH (20:29)
[2022-03-30] MEDS: MESALAMINE 1,000 MG SUPP PR SCH (20:54)
[2022-03-30] MEDS: ATORVASTATIN 20 MG TAB PO SCH (20:55)
[2022-03-30] MEDS: TAMSULOSIN 0.4 MG CAP PO SCH (20:57)
[2022-03-30] MEDS: NORTRIPTYLINE 10 MG CAP PO SCH (20:57)
[2022-03-31] MEDS: ALBUTEROL SULFATE 2.5 MG/0.5 ML INH NEB SOLN INH SCH ×6 (04:00→19:50)
[2022-03-31] MEDS: SODIUM CHLORIDE HYPERTONIC 3% 15ML NEB SOL INH SCH ×6 (04:00→19:50)
[2022-03-31] MEDS: LEVOTHYROXINE 150MCG TABLET (0.15MG) PO SCH (05:52)
[2022-03-31 06:10] LABS: HEMOGLOBIN 8.4 g/dl (13.5-17.5); MEAN CORPUSCULAR HEMOGLOBIN 28.3 pg (27.0-33.0); MEAN CORPUSCULAR HGB CONC 32.3 g/dl (32.0-36.5); MEAN CORPUSCULAR VOLUME 87.5 fl (80.0-96.0); PLATELET COUNT, AUTOMATED 551 10^3/uL (150-450); RED BLOOD COUNT 2.97 10^6/uL (4.30-6.10); WHITE BLOOD COUNT 7.3 10^3/uL (4.0-10.0)
[2022-03-31 06:56] LABS: ALBUMIN 2.3 GM/DL (3.2-5.2); ALT/SGPT 20 U/L (12-78); BILIRUBIN,TOTAL 0.5 MG/DL (0.2-1.0); BLOOD UREA NITROGEN 10 MG/DL (7-18); CALCIUM LEVEL 8.5 MG/DL (8.8-10.2); CARBON DIOXIDE LEVEL 26 MEQ/L (21-32); CHLORIDE LEVEL 99 MEQ/L (98-107); CREATININE FOR GFR 0.83 MG/DL (0.70-1.30); GLOMERULAR FILTRATION RATE > 60.0 (>42); GLUCOSE, FASTING 80 MG/DL (70-100); POTASSIUM SERUM 4.8 MEQ/L (3.5-5.1); SODIUM LEVEL 129 MEQ/L (136-145); TOTAL PROTEIN 5.6 GM/DL (6.4-8.2)
[2022-03-31] MEDS: BACLOFEN 5MG PER 1/2 TABLET PO SCH ×3 (08:39→21:10)
[2022-03-31] MEDS: guaiFENesin ER 600 MG TAB PO SCH ×2 (08:39→21:10)
[2022-03-31] MEDS: FERROUS SULFATE 325MG TAB PO SCH (08:39)
[2022-03-31] MEDS: VITAMIN D 1,000 INTERNATIONAL UNITS TABLET PO SCH (08:39)
[2022-03-31] MEDS: ONDANSETRON 4MG ORAL DISINTEGRATING TAB PO PRN (08:40)
[2022-03-31] MEDS: SODIUM CHLORIDE 1 GM TAB PO SCH ×3 (08:40→21:10)
[2022-03-31] MEDS: ESCITALOPRAM OXALATE 5MG TABLET (LEXAPRO) PO SCH (08:40)
[2022-03-31] MEDS: predniSONE 5 MG TAB PO SCH (08:40)
[2022-03-31] MEDS: PANTOPRAZOLE 40MG TAB (PROTONIX) PO SCH (08:41)
[2022-03-31] MEDS: DOCUSATE SODIUM 100MG CAPSULE PO SCH ×2 (08:41→21:09)
[2022-03-31] MEDS: AMIODARONE 200 MG TAB (PACERONE) PO SCH ×2 (08:41→19:35)
[2022-03-31] MEDS: MORPHINE 15 MG SA TAB PO SCH ×3 (08:42→21:09)
[2022-03-31] MEDS: LIDOCAINE 5% (LIDODERM) PATCH TD SCH (08:42)
[2022-03-31] MEDS: CALCITONIN NASAL SPRAY 3.7 ML BTL SCH (08:43)
[2022-03-31] MEDS: METOPROLOL SUCC *XL* 12.5MG PER 1/2 TAB (TopROL *XL*) PO SCH (08:50)
[2022-03-31] MEDS: MIRALAX *UNIT DOSE* 17GM PACKET PO SCH (09:00)
[2022-03-31] MEDS: HYDROmorphone 4MG TABLET PO PRN (13:28)
[2022-03-31 14:00] VITALS: BP 101/56
[2022-03-31] MEDS ORDERED: PIPERACILLIN/TAZOBACTAM SOD 2.25 GM in D5W MINI-BAG PLUS 50 ML IV SCH (16:15)
[2022-03-31] MEDS: PIPERACILLIN/TAZOBACTAM SOD 3.375 GM in D5W MINI-BAG PLUS 50 ML IV SCH ×2 (17:15→22:59)
[2022-03-31 20:00] VITALS: BP 100/51
[2022-03-31] MEDS: MESALAMINE 1,000 MG SUPP PR SCH (21:08)
[2022-03-31] MEDS: NORTRIPTYLINE 10 MG CAP PO SCH (21:09)
[2022-03-31] MEDS: TAMSULOSIN 0.4 MG CAP PO SCH (21:09)
[2022-03-31] MEDS: ATORVASTATIN 20 MG TAB PO SCH (21:09)
[2022-03-31] MEDS: **NOTE PATIENT COMMENT** MISC XX SCH (21:10)
[2022-04-01] MEDS: SODIUM CHLORIDE HYPERTONIC 3% 15ML NEB SOL INH SCH ×7 (04:00→23:50)
[2022-04-01] MEDS: ALBUTEROL SULFATE 2.5 MG/0.5 ML INH NEB SOLN INH SCH ×7 (04:00→23:49)
[2022-04-01] MEDS: PIPERACILLIN/TAZOBACTAM SOD 3.375 GM in D5W MINI-BAG PLUS 50 ML IV SCH ×4 (05:06→22:58)
[2022-04-01] MEDS: MORPHINE 15 MG SA TAB PO SCH ×3 (05:13→21:10)
[2022-04-01] MEDS: LEVOTHYROXINE 150MCG TABLET (0.15MG) PO SCH (05:13)
[2022-04-01 06:00] VITALS: BP 98/54
[2022-04-01] MEDS: METOPROLOL SUCC *XL* 12.5MG PER 1/2 TAB (TopROL *XL*) PO SCH (07:22)
[2022-04-01] MEDS: AMIODARONE 200 MG TAB (PACERONE) PO SCH ×2 (07:22→19:29)
[2022-04-01] MEDS: guaiFENesin ER 600 MG TAB PO SCH ×2 (08:08→21:08)
[2022-04-01] MEDS: SODIUM CHLORIDE 1 GM TAB PO SCH ×3 (08:08→21:08)
[2022-04-01] MEDS: LIDOCAINE 5% (LIDODERM) PATCH TD SCH (08:08)
[2022-04-01] MEDS: FERROUS SULFATE 325MG TAB PO SCH (08:09)
[2022-04-01] MEDS: BACLOFEN 5MG PER 1/2 TABLET PO SCH ×3 (08:09→21:08)
[2022-04-01] MEDS: PANTOPRAZOLE 40MG TAB (PROTONIX) PO SCH (08:10)
[2022-04-01] MEDS: DOCUSATE SODIUM 100MG CAPSULE PO SCH ×2 (08:10→21:09)
[2022-04-01] MEDS: ESCITALOPRAM OXALATE 5MG TABLET (LEXAPRO) PO SCH (08:10)
[2022-04-01] MEDS: HYDROmorphone 4MG TABLET PO PRN (08:10)
[2022-04-01] MEDS: VITAMIN D 1,000 INTERNATIONAL UNITS TABLET PO SCH (08:10)
[2022-04-01] MEDS: predniSONE 5 MG TAB PO SCH (08:10)
[2022-04-01] MEDS: CALCITONIN NASAL SPRAY 3.7 ML BTL SCH (08:11)
[2022-04-01] MEDS: MIRALAX *UNIT DOSE* 17GM PACKET PO SCH (09:00)
[2022-04-01 14:00] VITALS: BP 101/52
[2022-04-01 20:00] VITALS: BP 92/55
[2022-04-01] MEDS: NORTRIPTYLINE 10 MG CAP PO SCH (21:08)
[2022-04-01] MEDS: TAMSULOSIN 0.4 MG CAP PO SCH (21:09)
[2022-04-01] MEDS: ATORVASTATIN 20 MG TAB PO SCH (21:09)
[2022-04-01] MEDS: **NOTE PATIENT COMMENT** MISC XX SCH (21:10)
[2022-04-01] MEDS: MESALAMINE 1,000 MG SUPP PR SCH (21:10)
[2022-04-02] MEDS: ALBUTEROL SULFATE 2.5 MG/0.5 ML INH NEB SOLN INH SCH ×5 (03:11→20:37)
[2022-04-02] MEDS: SODIUM CHLORIDE HYPERTONIC 3% 15ML NEB SOL INH SCH ×5 (03:12→20:37)
[2022-04-02] MEDS: PIPERACILLIN/TAZOBACTAM SOD 3.375 GM in D5W MINI-BAG PLUS 50 ML IV SCH ×4 (05:01→22:58)
[2022-04-02] MEDS: LEVOTHYROXINE 150MCG TABLET (0.15MG) PO SCH (05:54)
[2022-04-02] MEDS: MORPHINE 15 MG SA TAB PO SCH ×3 (05:55→21:26)
[2022-04-02 06:00] VITALS: BP 97/50
[2022-04-02] MEDS: METOPROLOL SUCC *XL* 12.5MG PER 1/2 TAB (TopROL *XL*) PO SCH (07:21)
[2022-04-02] MEDS: AMIODARONE 200 MG TAB (PACERONE) PO SCH ×2 (07:21→20:33)
[2022-04-02] MEDS: MIRALAX *UNIT DOSE* 17GM PACKET PO SCH (08:07)
[2022-04-02] MEDS: ONDANSETRON 4MG ORAL DISINTEGRATING TAB PO PRN ×2 (08:52→22:58)
[2022-04-02] MEDS: LIDOCAINE 5% (LIDODERM) PATCH TD SCH (08:53)
[2022-04-02] MEDS: FERROUS SULFATE 325MG TAB PO SCH (08:53)
[2022-04-02] MEDS: DOCUSATE SODIUM 100MG CAPSULE PO SCH ×2 (08:53→21:25)
[2022-04-02] MEDS: VITAMIN D 1,000 INTERNATIONAL UNITS TABLET PO SCH (08:53)
[2022-04-02] MEDS: PANTOPRAZOLE 40MG TAB (PROTONIX) PO SCH (08:53)
[2022-04-02] MEDS: predniSONE 5 MG TAB PO SCH (08:53)
[2022-04-02] MEDS: SODIUM CHLORIDE 1 GM TAB PO SCH ×3 (08:53→21:27)
[2022-04-02] MEDS: BACLOFEN 5MG PER 1/2 TABLET PO SCH ×3 (08:53→21:27)
[2022-04-02] MEDS: guaiFENesin ER 600 MG TAB PO SCH ×2 (08:53→21:27)
[2022-04-02] MEDS: ESCITALOPRAM OXALATE 5MG TABLET (LEXAPRO) PO SCH (08:53)
[2022-04-02] MEDS: HYDROmorphone 4MG TABLET PO PRN ×2 (08:54→16:22)
[2022-04-02] MEDS: CALCITONIN NASAL SPRAY 3.7 ML BTL SCH (08:55)
[2022-04-02 14:00] VITALS: BP 108/53
[2022-04-02 20:00] VITALS: BP 109/53
[2022-04-02] MEDS: **NOTE PATIENT COMMENT** MISC XX SCH (20:33)
[2022-04-02] MEDS: MESALAMINE 1,000 MG SUPP PR SCH (21:25)
[2022-04-02] MEDS: TAMSULOSIN 0.4 MG CAP PO SCH (21:26)
[2022-04-02] MEDS: ATORVASTATIN 20 MG TAB PO SCH (21:26)
[2022-04-02] MEDS: NORTRIPTYLINE 10 MG CAP PO SCH (21:26)
[2022-04-03] MEDS: ALBUTEROL SULFATE 2.5 MG/0.5 ML INH NEB SOLN INH SCH ×5 (00:04→15:23)
[2022-04-03] MEDS: SODIUM CHLORIDE HYPERTONIC 3% 15ML NEB SOL INH SCH ×5 (00:04→15:23)
[2022-04-03] MEDS: PIPERACILLIN/TAZOBACTAM SOD 3.375 GM in D5W MINI-BAG PLUS 50 ML IV SCH ×2 (04:57→11:08)
[2022-04-03] MEDS: LEVOTHYROXINE 150MCG TABLET (0.15MG) PO SCH (05:55)
[2022-04-03] MEDS: MORPHINE 15 MG SA TAB PO SCH ×2 (05:56→14:42)
[2022-04-03 05:57] VITALS: BP 115/58
[2022-04-03] MEDS ORDERED: PROCHLORPERAZINE 10MG 2ML VIAL IV ONE (06:00)
[2022-04-03] MEDS ORDERED: PROCHLORPERAZINE 5MG TAB PO ONE (06:00)
[2022-04-03] MEDS: SODIUM CHLORIDE 1 GM TAB PO SCH ×2 (08:22→17:19)
[2022-04-03] MEDS: BACLOFEN 5MG PER 1/2 TABLET PO SCH ×2 (08:22→17:19)
[2022-04-03] MEDS: HYDROmorphone 4MG TABLET PO PRN (08:22)
[2022-04-03] MEDS: LIDOCAINE 5% (LIDODERM) PATCH TD SCH (08:22)
[2022-04-03 08:23] VITALS: BP 117/56
[2022-04-03] MEDS: METOPROLOL SUCC *XL* 12.5MG PER 1/2 TAB (TopROL *XL*) PO SCH (08:23)
[2022-04-03] MEDS: ONDANSETRON 4MG ORAL DISINTEGRATING TAB PO PRN (08:23)
[2022-04-03] MEDS: FERROUS SULFATE 325MG TAB PO SCH (08:23)
[2022-04-03] MEDS: MIRALAX *UNIT DOSE* 17GM PACKET PO SCH (08:23)
[2022-04-03] MEDS: VITAMIN D 1,000 INTERNATIONAL UNITS TABLET PO SCH (08:23)
[2022-04-03] MEDS: AMIODARONE 200 MG TAB (PACERONE) PO SCH (08:23)
[2022-04-03] MEDS: predniSONE 5 MG TAB PO SCH (08:23)
[2022-04-03] MEDS: PANTOPRAZOLE 40MG TAB (PROTONIX) PO SCH (08:23)
[2022-04-03] MEDS: guaiFENesin ER 600 MG TAB PO SCH (08:23)
[2022-04-03] MEDS: ESCITALOPRAM OXALATE 5MG TABLET (LEXAPRO) PO SCH (08:23)
[2022-04-03] MEDS: CALCITONIN NASAL SPRAY 3.7 ML BTL SCH (08:24)
[2022-04-03] MEDS: DOCUSATE SODIUM 100MG CAPSULE PO SCH (08:24)
[2022-04-03 10:10] LABS: BLOOD UREA NITROGEN 11 MG/DL (7-18); CALCIUM LEVEL 8.5 MG/DL (8.8-10.2); CARBON DIOXIDE LEVEL 24 MEQ/L (21-32); CHLORIDE LEVEL 97 MEQ/L (98-107); CREATININE FOR GFR 0.92 MG/DL (0.70-1.30); GLOMERULAR FILTRATION RATE > 60.0 (>42); GLUCOSE, FASTING 93 MG/DL (70-100); POTASSIUM SERUM 4.5 MEQ/L (3.5-5.1); SODIUM LEVEL 128 MEQ/L (136-145)
[2022-04-03 14:17] VITALS: BP 102/57
[2022-04-03] MEDS ORDERED: cefTRIAXone SOD 2 GM in D5W MINI-BAG PLUS 50 ML IV SCH (17:00)
== END 2022-04-03 17:38 | disposition short-term general hospital (02) | DRG 56 ==
LOC: M PM&R 16:29
PROVIDERS: ADMIT Physical Medicine & Rehabilitation; ATTEND Physical Medicine & Rehabilitation
DX: I69.351 Hemiplegia and hemiparesis following cerebral infarction affecting right dominant side (principal); U07.1 COVID-19; J90 Pleural effusion, not elsewhere classified; J98.11 Atelectasis; E87.1 Hypo-osmolality and hyponatremia; C79.51 Secondary malignant neoplasm of bone; C77.3 Secondary and unspecified malignant neoplasm of axilla and upper limb lymph nodes; C77.1 Secondary and unspecified malignant neoplasm of intrathoracic lymph nodes; K51.90 Ulcerative colitis, unspecified, without complications; G81.91 Hemiplegia, unspecified affecting right dominant side; S06.5X0D Traumatic subdural hemorrhage without loss of consciousness, subsequent encounter; S32.040D Wedge compression fracture of fourth lumbar vertebra, subsequent encounter for fracture with routine healing; M75.01 Adhesive capsulitis of right shoulder; M25.551 Pain in right hip; Z66 Do not resuscitate; R79.89 Other specified abnormal findings of blood chemistry; R59.0 Localized enlarged lymph nodes; K21.9 Gastro-esophageal reflux disease without esophagitis; E03.9 Hypothyroidism, unspecified; D64.9 Anemia, unspecified; I95.9 Hypotension, unspecified; I48.0 Paroxysmal atrial fibrillation; I25.10 Atherosclerotic heart disease of native coronary artery without angina pectoris; R74.01 Elevation of levels of liver transaminase levels; Z95.1 Presence of aortocoronary bypass graft; Z87.442 Personal history of urinary calculi; Z95.0 Presence of cardiac pacemaker; R09.02 Hypoxemia; R33.9 Retention of urine, unspecified; R31.9 Hematuria, unspecified; M47.812 Spondylosis without myelopathy or radiculopathy, cervical region; G89.3 Neoplasm related pain (acute) (chronic); R13.10 Dysphagia, unspecified; M47.816 Spondylosis without myelopathy or radiculopathy, lumbar region; N40.1 Benign prostatic hyperplasia with lower urinary tract symptoms; M48.061 Spinal stenosis, lumbar region without neurogenic claudication; J98.09 Other diseases of bronchus, not elsewhere classified; R19.7 Diarrhea, unspecified; D75.839 Thrombocytosis, unspecified; Z90.2 Acquired absence of lung [part of]; Z90.5 Acquired absence of kidney; Z90.49 Acquired absence of other specified parts of digestive tract; Z85.46 Personal history of malignant neoplasm of prostate; Z92.3 Personal history of irradiation; Z85.09 Personal history of malignant neoplasm of other digestive organs; Z85.528 Personal history of other malignant neoplasm of kidney; Z85.21 Personal history of malignant neoplasm of larynx; Z79.82 Long term (current) use of aspirin; Z79.890 Hormone replacement therapy; Z79.01 Long term (current) use of anticoagulants; Z79.899 Other long term (current) drug therapy; Z88.2 Allergy status to sulfonamides

== ENCOUNTER 2022-04-03 14:46 | Inpatient (IN) | payer OTHER, MEDICARE ==
[~2022-04-03] VITALS: Ht 177.8 cm; Wt 71.8 kg
[~2022-04-03 14:46] MED LIST changes: +AMIO200T49 PO; +ASPI81TA26 PO; +ATOR40TA75 PO; +BUDE10.7 INH; +FERR5ELX PO; +FURO10IN2 IV; +LEVA45AE INH; +LEXA5TAB13 PO; +LISI2.5T8 PO; +METO1TAB32 PO; +MORP-69 PO; +OXYC-517 PO; +SENN8.8S11 PO; +SODI1TAB6 PO; +VITA100093 PO; +WARF4TAB51 PO; +[UNRECOGNIZED DRUG - CODE] IV; +[UNRECOGNIZED DRUG - CODE] IV
[2022-04-03] MEDS ORDERED: MIRALAX *UNIT DOSE* 17GM PACKET PO PRN (14:55)
[2022-04-03] MEDS ORDERED: PIPERACILLIN/TAZOBACTAM SOD 3.375 GM in D5W MINI-BAG PLUS 50 ML IV SCH (14:55)
[2022-04-03] MEDS ORDERED: MORPHINE 2 MG/ML 1ML VIAL IV PRN (15:25)
[2022-04-03 17:47] VITALS: BP 106/48
[2022-04-03] MEDS: LACTOBACILLUS ACIDOPHILUS CAP (BACID) PO SCH (18:00)
[2022-04-03] MEDS ORDERED: HOME MED LIST COMPLETE! XX SCH (18:15)
[2022-04-03 18:40] LABS: HEMATOCRIT 26.4 % (42.0-52.0); HEMOGLOBIN 8.3 g/dl (13.5-17.5); MEAN CORPUSCULAR HEMOGLOBIN 27.9 pg (27.0-33.0); MEAN CORPUSCULAR HGB CONC 31.4 g/dl (32.0-36.5); MEAN CORPUSCULAR VOLUME 88.9 fl (80.0-96.0); PLATELET COUNT, AUTOMATED 543 10^3/uL (150-450); RED BLOOD COUNT 2.97 10^6/uL (4.30-6.10); WHITE BLOOD COUNT 9.3 10^3/uL (4.0-10.0)
[2022-04-03 18:53] LABS: INR 1.29; PROTHROMBIN TIME 16.5 SECONDS (12.7-14.5)
[2022-04-03 18:54] LABS: PARTIAL THROMBOPLASTIN TIME 40.5 SECONDS (25.9-37.0)
[2022-04-03 19:11] LABS: ALKALINE PHOSPHATASE 241 U/L (45-117); ALT/SGPT 26 U/L (12-78); AST/SGOT 19 U/L (7-37); BLOOD UREA NITROGEN 10 MG/DL (7-18); CALCIUM LEVEL 8.7 MG/DL (8.8-10.2); CARBON DIOXIDE LEVEL 24 MEQ/L (21-32); CHLORIDE LEVEL 97 MEQ/L (98-107); GLOMERULAR FILTRATION RATE > 60.0 (>42); GLUCOSE, FASTING 116 MG/DL (70-100); POTASSIUM SERUM 4.7 MEQ/L (3.5-5.1); SODIUM LEVEL 128 MEQ/L (136-145)
[2022-04-03 19:12] LABS: ALBUMIN 2.3 GM/DL (3.2-5.2); BILIRUBIN,TOTAL 0.5 MG/DL (0.2-1.0); TOTAL PROTEIN 5.9 GM/DL (6.4-8.2)
[2022-04-03 21:00] VITALS: BP 108/54
[2022-04-03] MEDS ORDERED: fentaNYL 25 MCG/HR PATCH TOP SCH (21:00)
[2022-04-03] MEDS: **NOTE PATIENT COMMENT** MISC XX SCH (21:00)
[2022-04-03] MEDS ORDERED: SODIUM CHLORIDE 1 GM TAB PO SCH (21:00)
[2022-04-03] MEDS: CEFUROXIME 500 MG TAB PO SCH (22:03)
[2022-04-03] MEDS: MESALAMINE 250 MG CR CAP PO SCH (22:04)
[2022-04-03] MEDS: DOCUSATE SODIUM 100MG CAPSULE PO SCH (22:04)
[2022-04-03] MEDS: TAMSULOSIN 0.4 MG CAP PO SCH (22:05)
[2022-04-03] MEDS: NORTRIPTYLINE 10 MG CAP PO SCH (22:05)
[2022-04-03] MEDS: SENNA 8.6 MG TAB (SENOKOT) PO SCH (22:05)
[2022-04-03] MEDS: guaiFENesin ER 600 MG TAB PO SCH (22:06)
[2022-04-03] MEDS: BACLOFEN 5MG PER 1/2 TABLET PO SCH (22:06)
[2022-04-03] MEDS: AMIODARONE 200 MG TAB (PACERONE) PO SCH (22:06)
[2022-04-03] MEDS: ATORVASTATIN 20 MG TAB PO SCH (22:08)
[2022-04-04] MEDS: MORPHINE 4 MG/ML 1ML VIAL IV PRN (05:12)
[2022-04-04] MEDS: ONDANSETRON 4MG ORAL DISINTEGRATING TAB PO PRN ×2 (05:12→09:55)
[2022-04-04] MEDS: LEVOTHYROXINE 150MCG TABLET (0.15MG) PO SCH (05:12)
[2022-04-04 06:00] VITALS: BP 115/59
[2022-04-04 06:42] LABS: HEMATOCRIT 24.6 % (42.0-52.0); HEMOGLOBIN 7.9 g/dl (13.5-17.5); MEAN CORPUSCULAR HEMOGLOBIN 28.8 pg (27.0-33.0); MEAN CORPUSCULAR HGB CONC 32.1 g/dl (32.0-36.5); MEAN CORPUSCULAR VOLUME 89.8 fl (80.0-96.0); PLATELET COUNT, AUTOMATED 525 10^3/uL (150-450); RED BLOOD COUNT 2.74 10^6/uL (4.30-6.10); WHITE BLOOD COUNT 6.9 10^3/uL (4.0-10.0)
[2022-04-04 07:04] LABS: INR 1.26; PROTHROMBIN TIME 16.2 SECONDS (12.7-14.5)
[2022-04-04 07:12] LABS: ALBUMIN 2.1 GM/DL (3.2-5.2); ALKALINE PHOSPHATASE 208 U/L (45-117); ALT/SGPT 23 U/L (12-78); AST/SGOT 14 U/L (7-37); BILIRUBIN,TOTAL 0.4 MG/DL (0.2-1.0); BLOOD UREA NITROGEN 10 MG/DL (7-18); CALCIUM LEVEL 8.6 MG/DL (8.8-10.2); CARBON DIOXIDE LEVEL 26 MEQ/L (21-32); CHLORIDE LEVEL 98 MEQ/L (98-107); CREATININE FOR GFR 0.75 MG/DL (0.70-1.30); GLOMERULAR FILTRATION RATE > 60.0 (>42); GLUCOSE, FASTING 85 MG/DL (70-100); POTASSIUM SERUM 4.5 MEQ/L (3.5-5.1); SODIUM LEVEL 129 MEQ/L (136-145); TOTAL PROTEIN 5.4 GM/DL (6.4-8.2)
[2022-04-04] MEDS: AMIODARONE 200 MG TAB (PACERONE) PO SCH ×2 (09:00→22:14)
[2022-04-04] MEDS: guaiFENesin ER 600 MG TAB PO SCH ×2 (09:00→21:00)
[2022-04-04] MEDS: FERROUS SULFATE 325MG TAB PO SCH (09:00)
[2022-04-04] MEDS: DOCUSATE SODIUM 100MG CAPSULE PO SCH ×2 (09:00→20:34)
[2022-04-04] MEDS: BACLOFEN 5MG PER 1/2 TABLET PO SCH ×3 (09:57→22:14)
[2022-04-04] MEDS: SODIUM CHLORIDE 1 GM TAB PO SCH ×3 (09:57→22:14)
[2022-04-04] MEDS: CEFUROXIME 500 MG TAB PO SCH (09:57)
[2022-04-04] MEDS: PANTOPRAZOLE 40MG TAB (PROTONIX) PO SCH (09:58)
[2022-04-04] MEDS: LACTOBACILLUS ACIDOPHILUS CAP (BACID) PO SCH ×2 (09:59→17:44)
[2022-04-04] MEDS: ESCITALOPRAM OXALATE 5MG TABLET (LEXAPRO) PO SCH (09:59)
[2022-04-04] MEDS: METOPROLOL SUCC *XL* 12.5MG PER 1/2 TAB (TopROL *XL*) PO SCH (09:59)
[2022-04-04] MEDS: LIDOCAINE 5% (LIDODERM) PATCH TD SCH (10:00)
[2022-04-04] MEDS: fentaNYL 25 MCG/HR PATCH TOP SCH (12:23)
[2022-04-04] MEDS ORDERED: CEFEPIME HCL 1 GM in D5W MINI-BAG PLUS 50 ML IV SCH (13:55)
[2022-04-04] MEDS ORDERED: VANCOMYCIN HCL 1,000 MG in IV FLUID PLACE HOLDER 1 EA IV ONE (13:55)
[2022-04-04 14:00] VITALS: BP 113/59
[2022-04-04] MEDS: SODIUM CHLORIDE HYPERTONIC 3% 15ML NEB SOL INH SCH ×2 (14:32→19:34)
[2022-04-04] MEDS: IPRATROPIUM 0.5MG/ALBUTEROL 2.5MG INH SOL UD 3ML (DUONEB) NEB SCH ×2 (14:32→19:34)
[2022-04-04] MEDS: CEFEPIME HCL 2 GM in D5W MINI-BAG PLUS 50 ML IV SCH ×2 (15:00→22:16)
[2022-04-04 16:12] LABS: MAGNESIUM LEVEL 1.9 MG/DL (1.8-2.4)
[2022-04-04] MEDS: WARFARIN SOD 4MG TAB PO SCH (17:44)
[2022-04-04] MEDS ORDERED: VANCOMYCIN HCL 1,000 MG, VIAL MATE ADAPTER 1 EACH in D5W 250 ML IV ONE (19:00)
[2022-04-04] MEDS: VANCOMYCIN HCL 1,000 MG, VIAL MATE ADAPTER 1 EACH in D5W 250 ML IV SCH (20:00)
[2022-04-04] MEDS: SENNA 8.6 MG TAB (SENOKOT) PO SCH (20:36)
[2022-04-04] MEDS: TAMSULOSIN 0.4 MG CAP PO SCH (21:00)
[2022-04-04] MEDS: **NOTE PATIENT COMMENT** MISC XX SCH (21:00)
[2022-04-04 22:00] VITALS: BP 114/48
[2022-04-04] MEDS: MESALAMINE 250 MG CR CAP PO SCH (22:14)
[2022-04-04] MEDS: NORTRIPTYLINE 10 MG CAP PO SCH (22:14)
[2022-04-04] MEDS: ATORVASTATIN 20 MG TAB PO SCH (22:15)
[2022-04-05] MEDS: VANCOMYCIN HCL 1,000 MG, VIAL MATE ADAPTER 1 EACH in D5W 250 ML IV SCH ×3 (00:35→21:33)
[2022-04-05] MEDS: IPRATROPIUM 0.5MG/ALBUTEROL 2.5MG INH SOL UD 3ML (DUONEB) NEB SCH ×4 (01:34→20:29)
[2022-04-05] MEDS: CEFEPIME HCL 2 GM in D5W MINI-BAG PLUS 50 ML IV SCH ×3 (01:47→15:20)
[2022-04-05] MEDS: SODIUM CHLORIDE HYPERTONIC 3% 15ML NEB SOL INH SCH ×4 (02:00→20:00)
[2022-04-05] MEDS: LEVOTHYROXINE 150MCG TABLET (0.15MG) PO SCH (05:45)
[2022-04-05 05:50] VITALS: BP 112/53
[2022-04-05] MEDS: ONDANSETRON 4MG ORAL DISINTEGRATING TAB PO PRN (07:02)
[2022-04-05] MEDS: MORPHINE 4 MG/ML 1ML VIAL IV PRN ×3 (07:03→21:41)
[2022-04-05 07:24] LABS: BASO # 0.1 10^3/uL (0.0-0.2); BASO % 0.9 % (0.0-1.0); EOS # 0.1 10^3/uL (0.0-0.5); EOS % 1.6 % (0.0-3.0); HEMATOCRIT 26.6 % (42.0-52.0); HEMOGLOBIN 8.4 g/dl (13.5-17.5); LYMPH # 0.4 10^3/uL (1.5-5.0); LYMPH % 7.4 % (24.0-44.0); MEAN CORPUSCULAR HGB CONC 31.6 g/dl (32.0-36.5); MEAN CORPUSCULAR VOLUME 88.7 fl (80.0-96.0); MONO # 0.7 10^3/uL (0.0-0.8); MONO % 13.3 % (2.0-8.0); NEUTROPHILS # 4.2 10^3/uL (1.5-8.5); NEUTROPHILS % 76.3 % (36.0-66.0); PLATELET COUNT, AUTOMATED 504 10^3/uL (150-450); WHITE BLOOD COUNT 5.6 10^3/uL (4.0-10.0)
[2022-04-05 07:38] LABS: INR 1.25; PROTHROMBIN TIME 16.1 SECONDS (12.7-14.5)
[2022-04-05 07:55] LABS: BLOOD UREA NITROGEN 9 MG/DL (7-18); CALCIUM LEVEL 8.4 MG/DL (8.8-10.2); CARBON DIOXIDE LEVEL 24 MEQ/L (21-32); CHLORIDE LEVEL 98 MEQ/L (98-107); CREATININE FOR GFR 0.74 MG/DL (0.70-1.30); GLOMERULAR FILTRATION RATE > 60.0 (>42); GLUCOSE, FASTING 84 MG/DL (70-100); POTASSIUM SERUM 4.3 MEQ/L (3.5-5.1); SODIUM LEVEL 129 MEQ/L (136-145)
[2022-04-05 09:02] LABS: VANCOMYCIN RANDOM 11.1 UG/ML
[2022-04-05] MEDS: ESCITALOPRAM OXALATE 5MG TABLET (LEXAPRO) PO SCH (10:56)
[2022-04-05] MEDS: DOCUSATE SODIUM 100MG CAPSULE PO SCH ×2 (10:56→21:00)
[2022-04-05] MEDS: SODIUM CHLORIDE 1 GM TAB PO SCH ×3 (10:56→21:40)
[2022-04-05] MEDS: BACLOFEN 5MG PER 1/2 TABLET PO SCH ×3 (10:56→21:40)
[2022-04-05] MEDS: AMIODARONE 200 MG TAB (PACERONE) PO SCH ×2 (10:56→21:40)
[2022-04-05] MEDS: ASPIRIN 81MG ENTERIC TABLET PO SCH (10:56)
[2022-04-05] MEDS: FERROUS SULFATE 325MG TAB PO SCH (10:57)
[2022-04-05] MEDS: guaiFENesin ER 600 MG TAB PO SCH ×2 (10:57→21:00)
[2022-04-05] MEDS: PANTOPRAZOLE 40MG TAB (PROTONIX) PO SCH (10:57)
[2022-04-05] MEDS: METOPROLOL SUCC *XL* 12.5MG PER 1/2 TAB (TopROL *XL*) PO SCH (10:59)
[2022-04-05] MEDS: LIDOCAINE 5% (LIDODERM) PATCH TD SCH (11:09)
[2022-04-05] MEDS: LACTOBACILLUS ACIDOPHILUS CAP (BACID) PO SCH ×2 (11:10→16:50)
[2022-04-05] MEDS: VANCOMYCIN HCL 500 MG in D5W MINI-BAG PLUS 100 ML IV SCH ×2 (12:35→22:43)
[2022-04-05 14:00] VITALS: BP 143/82
[2022-04-05] MEDS: WARFARIN SOD 4MG TAB PO SCH (16:50)
[2022-04-05] MEDS ORDERED: WARFARIN SOD 2MG TAB PO ONE (18:10)
[2022-04-05 18:30] VITALS: O2SAT 100
[2022-04-05 18:45] VITALS: O2SAT 93
[2022-04-05 20:00] VITALS: BP 95/50
[2022-04-05] MEDS: SENNA 8.6 MG TAB (SENOKOT) PO SCH (21:00)
[2022-04-05] MEDS: TAMSULOSIN 0.4 MG CAP PO SCH (21:00)
[2022-04-05] MEDS: **NOTE PATIENT COMMENT** MISC XX SCH (21:38)
[2022-04-05] MEDS: NORTRIPTYLINE 10 MG CAP PO SCH (21:39)
[2022-04-05] MEDS: MESALAMINE 250 MG CR CAP PO SCH (21:40)
[2022-04-05] MEDS: ATORVASTATIN 20 MG TAB PO SCH (21:40)
[2022-04-05 22:00] VITALS: BP 96/45
[2022-04-05] MEDS ORDERED: SODIUM CHLORIDE 0.9% 1000ML IV ONE (22:55)
[2022-04-06] MEDS: CEFEPIME HCL 2 GM in D5W MINI-BAG PLUS 50 ML IV SCH ×2 (00:10→05:48)
[2022-04-06 01:00] VITALS: BP 100/50
[2022-04-06] MEDS: IPRATROPIUM 0.5MG/ALBUTEROL 2.5MG INH SOL UD 3ML (DUONEB) NEB SCH ×2 (01:35→08:26)
[2022-04-06] MEDS: SODIUM CHLORIDE HYPERTONIC 3% 15ML NEB SOL INH SCH ×4 (01:35→20:00)
[2022-04-06] MEDS: LEVOTHYROXINE 150MCG TABLET (0.15MG) PO SCH (05:37)
[2022-04-06] MEDS: MORPHINE 4 MG/ML 1ML VIAL IV PRN ×3 (05:38→22:04)
[2022-04-06 05:58] VITALS: O2SAT 95
[2022-04-06 06:00] VITALS: BP 105/50
[2022-04-06 07:11] LABS: BASO # 0.1 10^3/uL (0.0-0.2); BASO % 1.1 % (0.0-1.0); EOS # 0.1 10^3/uL (0.0-0.5); EOS % 2.3 % (0.0-3.0); HEMATOCRIT 25.1 % (42.0-52.0); LYMPH # 0.5 10^3/uL (1.5-5.0); LYMPH % 8.6 % (24.0-44.0); MEAN CORPUSCULAR HEMOGLOBIN 28.2 pg (27.0-33.0); MEAN CORPUSCULAR HGB CONC 31.9 g/dl (32.0-36.5); MEAN CORPUSCULAR VOLUME 88.4 fl (80.0-96.0); MONO # 0.8 10^3/uL (0.0-0.8); MONO % 14.1 % (2.0-8.0); NEUTROPHILS # 4.2 10^3/uL (1.5-8.5); PLATELET COUNT, AUTOMATED 437 10^3/uL (150-450); RED BLOOD COUNT 2.84 10^6/uL (4.30-6.10); WHITE BLOOD COUNT 5.7 10^3/uL (4.0-10.0)
[2022-04-06 07:20] LABS: INR 1.5; PROTHROMBIN TIME 18.5 SECONDS (12.7-14.5)
[2022-04-06 07:44] LABS: BLOOD UREA NITROGEN 12 MG/DL (7-18); CALCIUM LEVEL 8.3 MG/DL (8.8-10.2); CARBON DIOXIDE LEVEL 24 MEQ/L (21-32); CHLORIDE LEVEL 98 MEQ/L (98-107); CREATININE FOR GFR 0.79 MG/DL (0.70-1.30); GLOMERULAR FILTRATION RATE > 60.0 (>42); GLUCOSE, FASTING 91 MG/DL (70-100); POTASSIUM SERUM 4.4 MEQ/L (3.5-5.1); SODIUM LEVEL 127 MEQ/L (136-145)
[2022-04-06] MEDS: DOCUSATE SODIUM 100MG CAPSULE PO SCH ×3 (08:30→21:51)
[2022-04-06] MEDS: METOPROLOL SUCC *XL* 12.5MG PER 1/2 TAB (TopROL *XL*) PO SCH (09:00)
[2022-04-06] MEDS: SODIUM CHLORIDE 1 GM TAB PO SCH ×3 (09:34→21:52)
[2022-04-06] MEDS: ESCITALOPRAM OXALATE 5MG TABLET (LEXAPRO) PO SCH (09:34)
[2022-04-06] MEDS: LACTOBACILLUS ACIDOPHILUS CAP (BACID) PO SCH ×2 (09:34→17:18)
[2022-04-06] MEDS: FERROUS SULFATE 325MG TAB PO SCH (09:34)
[2022-04-06] MEDS: guaiFENesin ER 600 MG TAB PO SCH ×2 (09:34→21:52)
[2022-04-06] MEDS: ASPIRIN 81MG ENTERIC TABLET PO SCH (09:34)
[2022-04-06] MEDS: AMIODARONE 200 MG TAB (PACERONE) PO SCH ×2 (09:35→21:52)
[2022-04-06] MEDS: BACLOFEN 5MG PER 1/2 TABLET PO SCH ×3 (09:35→21:52)
[2022-04-06] MEDS: PANTOPRAZOLE 40MG TAB (PROTONIX) PO SCH (09:35)
[2022-04-06] MEDS: LIDOCAINE 5% (LIDODERM) PATCH TD SCH (09:35)
[2022-04-06] MEDS ORDERED: VANCOMYCIN HCL 1,000 MG, VIAL MATE ADAPTER 1 EACH in D5W 250 ML IV SCH (10:00)
[2022-04-06 14:00] VITALS: BP 107/57
[2022-04-06] MEDS: LEVALBUTEROL 1.25MG 0.5ML CONCENTRATE NEB INH SCH ×2 (14:12→20:00)
[2022-04-06] MEDS ORDERED: TOLVAPTAN 7.5 MG HALF-TAB PO ONE (15:00)
[2022-04-06] MEDS: WARFARIN SOD 4MG TAB PO SCH (17:18)
[2022-04-06 19:50] LABS: BLOOD UREA NITROGEN 12 MG/DL (7-18); CALCIUM LEVEL 8.6 MG/DL (8.8-10.2); CARBON DIOXIDE LEVEL 25 MEQ/L (21-32); CHLORIDE LEVEL 99 MEQ/L (98-107); CREATININE FOR GFR 0.82 MG/DL (0.70-1.30); GLOMERULAR FILTRATION RATE > 60.0 (>42); GLUCOSE, FASTING 108 MG/DL (70-100); SODIUM LEVEL 129 MEQ/L (136-145)
[2022-04-06] MEDS: TAMSULOSIN 0.4 MG CAP PO SCH (21:00)
[2022-04-06] MEDS ORDERED: FENTANYL REMOVAL DOCUMENTATION MISC XX SCH (21:00)
[2022-04-06] MEDS: ATORVASTATIN 20 MG TAB PO SCH (21:51)
[2022-04-06] MEDS: SENNA 8.6 MG TAB (SENOKOT) PO SCH (21:51)
[2022-04-06] MEDS: NORTRIPTYLINE 10 MG CAP PO SCH (21:52)
[2022-04-06] MEDS: MESALAMINE 250 MG CR CAP PO SCH (21:52)
[2022-04-06] MEDS: **NOTE PATIENT COMMENT** MISC XX SCH (21:52)
[2022-04-06 22:00] VITALS: BP 101/45
[2022-04-06] MEDS: ONDANSETRON 4MG ORAL DISINTEGRATING TAB PO PRN (22:03)
[2022-04-07] MEDS: LEVALBUTEROL 1.25MG 0.5ML CONCENTRATE NEB INH SCH ×4 (02:00→20:00)
[2022-04-07] MEDS: SODIUM CHLORIDE HYPERTONIC 3% 15ML NEB SOL INH SCH ×4 (02:00→20:00)
[2022-04-07 06:00] VITALS: BP 105/45
[2022-04-07] MEDS: ONDANSETRON 4MG ORAL DISINTEGRATING TAB PO PRN ×2 (06:15→19:21)
[2022-04-07] MEDS: MORPHINE 4 MG/ML 1ML VIAL IV PRN ×2 (06:15→23:49)
[2022-04-07] MEDS: LEVOTHYROXINE 150MCG TABLET (0.15MG) PO SCH (06:15)
[2022-04-07 07:26] LABS: INR 1.68; PROTHROMBIN TIME 20.2 SECONDS (12.7-14.5)
[2022-04-07 07:32] LABS: HEMATOCRIT 27.5 % (42.0-52.0); HEMOGLOBIN 8.6 g/dl (13.5-17.5); MEAN CORPUSCULAR HEMOGLOBIN 28.2 pg (27.0-33.0); MEAN CORPUSCULAR HGB CONC 31.3 g/dl (32.0-36.5); MEAN CORPUSCULAR VOLUME 90.2 fl (80.0-96.0); PLATELET COUNT, AUTOMATED 488 10^3/uL (150-450); RED BLOOD COUNT 3.05 10^6/uL (4.30-6.10); WHITE BLOOD COUNT 5.7 10^3/uL (4.0-10.0)
[2022-04-07 07:54] LABS: BLOOD UREA NITROGEN 9 MG/DL (7-18); CALCIUM LEVEL 8.9 MG/DL (8.8-10.2); CARBON DIOXIDE LEVEL 26 MEQ/L (21-32); CHLORIDE LEVEL 101 MEQ/L (98-107); CREATININE FOR GFR 0.75 MG/DL (0.70-1.30); GLOMERULAR FILTRATION RATE > 60.0 (>42); GLUCOSE, FASTING 80 MG/DL (70-100); POTASSIUM SERUM 4.2 MEQ/L (3.5-5.1); SODIUM LEVEL 131 MEQ/L (136-145)
[2022-04-07] MEDS: METOPROLOL SUCC *XL* 12.5MG PER 1/2 TAB (TopROL *XL*) PO SCH (09:00)
[2022-04-07] MEDS: DOCUSATE SODIUM 100MG CAPSULE PO SCH (09:00)
[2022-04-07 09:26] VITALS: BP 94/39
[2022-04-07] MEDS: LIDOCAINE 5% (LIDODERM) PATCH TD SCH (09:40)
[2022-04-07] MEDS: FERROUS SULFATE 325MG TAB PO SCH (09:40)
[2022-04-07] MEDS: guaiFENesin ER 600 MG TAB PO SCH ×2 (09:40→22:31)
[2022-04-07] MEDS: ASPIRIN 81MG ENTERIC TABLET PO SCH (09:41)
[2022-04-07] MEDS: PANTOPRAZOLE 40MG TAB (PROTONIX) PO SCH (09:41)
[2022-04-07] MEDS: AMIODARONE 200 MG TAB (PACERONE) PO SCH ×2 (09:42→22:32)
[2022-04-07] MEDS: SODIUM CHLORIDE 1 GM TAB PO SCH ×3 (09:42→22:31)
[2022-04-07] MEDS: BACLOFEN 5MG PER 1/2 TABLET PO SCH ×3 (09:42→22:31)
[2022-04-07] MEDS: ESCITALOPRAM OXALATE 5MG TABLET (LEXAPRO) PO SCH (09:42)
[2022-04-07] MEDS: LACTOBACILLUS ACIDOPHILUS CAP (BACID) PO SCH ×2 (09:42→18:27)
[2022-04-07] MEDS ORDERED: KETOROLAC 30 MG/ML 1ML VIAL IV ONE (10:05)
[2022-04-07] MEDS ORDERED: FENTANYL REMOVAL DOCUMENTATION MISC XX SCH (13:00)
[2022-04-07] MEDS: fentaNYL 25 MCG/HR PATCH TOP SCH (13:01)
[2022-04-07] MEDS: TOLVAPTAN 7.5 MG HALF-TAB PO SCH (13:01)
[2022-04-07 14:00] VITALS: BP 114/54
[2022-04-07] MEDS: WARFARIN SOD 4MG TAB PO SCH (18:27)
[2022-04-07] MEDS: **NOTE PATIENT COMMENT** MISC XX SCH (21:00)
[2022-04-07 21:25] VITALS: BP 103/48
[2022-04-07] MEDS: TAMSULOSIN 0.4 MG CAP PO SCH (22:31)
[2022-04-07] MEDS: MESALAMINE 250 MG CR CAP PO SCH (22:31)
[2022-04-07] MEDS: NORTRIPTYLINE 10 MG CAP PO SCH (22:32)
[2022-04-07] MEDS: ATORVASTATIN 20 MG TAB PO SCH (22:32)
[2022-04-07] MEDS: PROMETHAZINE 25MG/ML 1ML VIAL IV PRN (23:15)
[2022-04-08] MEDS: SODIUM CHLORIDE HYPERTONIC 3% 15ML NEB SOL INH SCH ×4 (02:00→20:45)
[2022-04-08] MEDS: LEVALBUTEROL 1.25MG 0.5ML CONCENTRATE NEB INH SCH ×4 (02:00→20:45)
[2022-04-08 05:40] VITALS: BP 98/45
[2022-04-08] MEDS: LEVOTHYROXINE 150MCG TABLET (0.15MG) PO SCH (05:43)
[2022-04-08] MEDS ORDERED: MIDODRINE 5 MG TAB PO ONE (05:55)
[2022-04-08] MEDS: MORPHINE 4 MG/ML 1ML VIAL IV PRN ×2 (06:11→20:41)
[2022-04-08 07:03] LABS: HEMATOCRIT 27.2 % (42.0-52.0); HEMOGLOBIN 8.3 g/dl (13.5-17.5); MEAN CORPUSCULAR HEMOGLOBIN 27.8 pg (27.0-33.0); MEAN CORPUSCULAR HGB CONC 30.5 g/dl (32.0-36.5); PLATELET COUNT, AUTOMATED 444 10^3/uL (150-450); RED BLOOD COUNT 2.99 10^6/uL (4.30-6.10); WHITE BLOOD COUNT 5.6 10^3/uL (4.0-10.0)
[2022-04-08 07:14] LABS: INR 1.86; PROTHROMBIN TIME 21.8 SECONDS (12.7-14.5)
[2022-04-08 07:24] LABS: BLOOD UREA NITROGEN 12 MG/DL (7-18); CALCIUM LEVEL 8.6 MG/DL (8.8-10.2); CARBON DIOXIDE LEVEL 26 MEQ/L (21-32); CHLORIDE LEVEL 102 MEQ/L (98-107); CREATININE FOR GFR 0.84 MG/DL (0.70-1.30); GLOMERULAR FILTRATION RATE > 60.0 (>42); GLUCOSE, FASTING 83 MG/DL (70-100); POTASSIUM SERUM 4.3 MEQ/L (3.5-5.1); SODIUM LEVEL 132 MEQ/L (136-145)
[2022-04-08] MEDS: METOPROLOL SUCC *XL* 12.5MG PER 1/2 TAB (TopROL *XL*) PO SCH (08:33)
[2022-04-08] MEDS: guaiFENesin ER 600 MG TAB PO SCH ×2 (09:00→20:38)
[2022-04-08] MEDS: FERROUS SULFATE 325MG TAB PO SCH (09:00)
[2022-04-08] MEDS: SODIUM CHLORIDE 1 GM TAB PO SCH (09:10)
[2022-04-08] MEDS: ESCITALOPRAM OXALATE 5MG TABLET (LEXAPRO) PO SCH (09:10)
[2022-04-08] MEDS: LACTOBACILLUS ACIDOPHILUS CAP (BACID) PO SCH ×2 (09:10→17:15)
[2022-04-08] MEDS: LIDOCAINE 5% (LIDODERM) PATCH TD SCH (09:11)
[2022-04-08] MEDS: PANTOPRAZOLE 40MG TAB (PROTONIX) PO SCH (09:11)
[2022-04-08] MEDS: ASPIRIN 81MG ENTERIC TABLET PO SCH (09:11)
[2022-04-08] MEDS: AMIODARONE 200 MG TAB (PACERONE) PO SCH ×2 (09:11→20:38)
[2022-04-08] MEDS: BACLOFEN 5MG PER 1/2 TABLET PO SCH ×3 (09:11→20:38)
[2022-04-08] MEDS: TOLVAPTAN 7.5 MG HALF-TAB PO SCH (12:25)
[2022-04-08] MEDS: ONDANSETRON 4MG ORAL DISINTEGRATING TAB PO PRN ×2 (12:51→17:40)
[2022-04-08 14:43] VITALS: BP 104/44
[2022-04-08] MEDS: WARFARIN SOD 4MG TAB PO SCH (17:15)
[2022-04-08 20:00] VITALS: BP 100/49
[2022-04-08] MEDS: TAMSULOSIN 0.4 MG CAP PO SCH (20:37)
[2022-04-08] MEDS: ATORVASTATIN 20 MG TAB PO SCH (20:38)
[2022-04-08] MEDS: **NOTE PATIENT COMMENT** MISC XX SCH (20:38)
[2022-04-08] MEDS: NORTRIPTYLINE 10 MG CAP PO SCH (20:38)
[2022-04-08] MEDS: MESALAMINE 250 MG CR CAP PO SCH (20:38)
[2022-04-09] MEDS: ONDANSETRON 4MG ORAL DISINTEGRATING TAB PO PRN ×2 (00:15→20:21)
[2022-04-09] MEDS: LEVALBUTEROL 1.25MG 0.5ML CONCENTRATE NEB INH SCH ×4 (02:00→19:59)
[2022-04-09] MEDS: SODIUM CHLORIDE HYPERTONIC 3% 15ML NEB SOL INH SCH ×4 (02:00→19:59)
[2022-04-09] MEDS: MORPHINE 4 MG/ML 1ML VIAL IV PRN ×2 (04:30→13:03)
[2022-04-09] MEDS: LEVOTHYROXINE 150MCG TABLET (0.15MG) PO SCH (05:03)
[2022-04-09 05:51] LABS: HEMATOCRIT 24.2 % (42.0-52.0); HEMOGLOBIN 7.8 g/dl (13.5-17.5); MEAN CORPUSCULAR HEMOGLOBIN 28.6 pg (27.0-33.0); MEAN CORPUSCULAR HGB CONC 32.2 g/dl (32.0-36.5); MEAN CORPUSCULAR VOLUME 88.6 fl (80.0-96.0); PLATELET COUNT, AUTOMATED 400 10^3/uL (150-450); RED BLOOD COUNT 2.73 10^6/uL (4.30-6.10); WHITE BLOOD COUNT 5.8 10^3/uL (4.0-10.0)
[2022-04-09 06:00] VITALS: BP 116/57
[2022-04-09 06:16] LABS: INR 2.17; PROTHROMBIN TIME 24.6 SECONDS (12.7-14.5)
[2022-04-09 06:31] LABS: BLOOD UREA NITROGEN 15 MG/DL (7-18); CALCIUM LEVEL 8.5 MG/DL (8.8-10.2); CARBON DIOXIDE LEVEL 24 MEQ/L (21-32); CHLORIDE LEVEL 102 MEQ/L (98-107); CREATININE FOR GFR 0.76 MG/DL (0.70-1.30); GLOMERULAR FILTRATION RATE > 60.0 (>42); GLUCOSE, FASTING 89 MG/DL (70-100); POTASSIUM SERUM 4.1 MEQ/L (3.5-5.1); SODIUM LEVEL 134 MEQ/L (136-145)
[2022-04-09] MEDS: guaiFENesin ER 600 MG TAB PO SCH ×2 (09:00→20:20)
[2022-04-09] MEDS: FERROUS SULFATE 325MG TAB PO SCH (09:00)
[2022-04-09] MEDS: BACLOFEN 5MG PER 1/2 TABLET PO SCH ×3 (09:18→20:20)
[2022-04-09] MEDS: PANTOPRAZOLE 40MG TAB (PROTONIX) PO SCH (09:18)
[2022-04-09] MEDS: LACTOBACILLUS ACIDOPHILUS CAP (BACID) PO SCH ×2 (09:18→17:23)
[2022-04-09] MEDS: ASPIRIN 81MG ENTERIC TABLET PO SCH (09:18)
[2022-04-09] MEDS: ESCITALOPRAM OXALATE 5MG TABLET (LEXAPRO) PO SCH (09:18)
[2022-04-09] MEDS: AMIODARONE 200 MG TAB (PACERONE) PO SCH ×2 (09:18→20:20)
[2022-04-09] MEDS: METOPROLOL SUCC *XL* 12.5MG PER 1/2 TAB (TopROL *XL*) PO SCH (09:19)
[2022-04-09] MEDS: LIDOCAINE 5% (LIDODERM) PATCH TD SCH (09:19)
[2022-04-09 12:14] VITALS: O2SAT 97
[2022-04-09] MEDS: FENTANYL REMOVAL DOCUMENTATION MISC XX SCH (12:55)
[2022-04-09] MEDS: fentaNYL 50 MCG/HR PATCH TOP SCH (12:57)
[2022-04-09] MEDS: TOLVAPTAN 7.5 MG HALF-TAB PO SCH (13:00)
[2022-04-09 16:00] VITALS: BP 115/50
[2022-04-09 16:08] LABS: HEMATOCRIT 26.3 % (42.0-52.0); HEMOGLOBIN 8.2 g/dl (13.5-17.5); MEAN CORPUSCULAR HEMOGLOBIN 28.3 pg (27.0-33.0); MEAN CORPUSCULAR HGB CONC 31.2 g/dl (32.0-36.5); MEAN CORPUSCULAR VOLUME 90.7 fl (80.0-96.0); PLATELET COUNT, AUTOMATED 418 10^3/uL (150-450); WHITE BLOOD COUNT 5.8 10^3/uL (4.0-10.0)
[2022-04-09 19:33] VITALS: BP 92/44
[2022-04-09] MEDS ORDERED: MIDODRINE 5 MG TAB PO ONE (19:35)
[2022-04-09] MEDS: TAMSULOSIN 0.4 MG CAP PO SCH (20:20)
[2022-04-09] MEDS: ATORVASTATIN 20 MG TAB PO SCH (20:20)
[2022-04-09] MEDS: MESALAMINE 250 MG CR CAP PO SCH (20:20)
[2022-04-09] MEDS: NORTRIPTYLINE 10 MG CAP PO SCH (20:22)
[2022-04-09] MEDS: **NOTE PATIENT COMMENT** MISC XX SCH (20:22)
[2022-04-09] MEDS: PERCOCET 5MG/325MG TAB PO PRN (20:22)
[2022-04-09 22:00] VITALS: BP 92/44
[2022-04-10 01:11] VITALS: O2SAT 94
[2022-04-10] MEDS: SODIUM CHLORIDE HYPERTONIC 3% 15ML NEB SOL INH SCH ×4 (02:00→20:35)
[2022-04-10] MEDS: LEVALBUTEROL 1.25MG 0.5ML CONCENTRATE NEB INH SCH ×4 (02:00→20:35)
[2022-04-10] MEDS: LEVOTHYROXINE 150MCG TABLET (0.15MG) PO SCH (05:25)
[2022-04-10 05:29] VITALS: BP 106/48
[2022-04-10 06:39] LABS: HEMATOCRIT 27.5 % (42.0-52.0); HEMOGLOBIN 8.3 g/dl (13.5-17.5); MEAN CORPUSCULAR HEMOGLOBIN 27.8 pg (27.0-33.0); MEAN CORPUSCULAR HGB CONC 30.2 g/dl (32.0-36.5); PLATELET COUNT, AUTOMATED 424 10^3/uL (150-450); RED BLOOD COUNT 2.99 10^6/uL (4.30-6.10); WHITE BLOOD COUNT 5.2 10^3/uL (4.0-10.0)
[2022-04-10 07:04] LABS: INR 2.36; PROTHROMBIN TIME 26.2 SECONDS (12.7-14.5)
[2022-04-10 07:15] LABS: BLOOD UREA NITROGEN 12 MG/DL (7-18); CALCIUM LEVEL 8.6 MG/DL (8.8-10.2); CARBON DIOXIDE LEVEL 26 MEQ/L (21-32); CHLORIDE LEVEL 100 MEQ/L (98-107); CREATININE FOR GFR 0.77 MG/DL (0.70-1.30); GLOMERULAR FILTRATION RATE > 60.0 (>42); GLUCOSE, FASTING 80 MG/DL (70-100); POTASSIUM SERUM 4.3 MEQ/L (3.5-5.1); SODIUM LEVEL 132 MEQ/L (136-145)
[2022-04-10] MEDS: PERCOCET 5MG/325MG TAB PO PRN ×3 (08:59→22:28)
[2022-04-10] MEDS: LACTOBACILLUS ACIDOPHILUS CAP (BACID) PO SCH ×2 (08:59→16:17)
[2022-04-10] MEDS: METOPROLOL SUCC *XL* 12.5MG PER 1/2 TAB (TopROL *XL*) PO SCH (09:00)
[2022-04-10] MEDS: ESCITALOPRAM OXALATE 5MG TABLET (LEXAPRO) PO SCH (09:00)
[2022-04-10] MEDS: BACLOFEN 5MG PER 1/2 TABLET PO SCH ×3 (09:00→22:27)
[2022-04-10] MEDS: PANTOPRAZOLE 40MG TAB (PROTONIX) PO SCH (09:01)
[2022-04-10] MEDS: AMIODARONE 200 MG TAB (PACERONE) PO SCH ×2 (09:01→22:27)
[2022-04-10] MEDS: guaiFENesin ER 600 MG TAB PO SCH ×2 (09:01→22:27)
[2022-04-10] MEDS: FERROUS SULFATE 325MG TAB PO SCH (09:01)
[2022-04-10] MEDS: LIDOCAINE 5% (LIDODERM) PATCH TD SCH (09:01)
[2022-04-10] MEDS: PROMETHAZINE 25MG/ML 1ML VIAL IV PRN (09:01)
[2022-04-10] MEDS: TOLVAPTAN 7.5 MG HALF-TAB PO SCH (12:31)
[2022-04-10 14:00] VITALS: BP 96/45
[2022-04-10 20:00] VITALS: BP 95/46
[2022-04-10 20:43] VITALS: BP 92/40
[2022-04-10] MEDS: **NOTE PATIENT COMMENT** MISC XX SCH (21:00)
[2022-04-10] MEDS: MESALAMINE 250 MG CR CAP PO SCH (22:27)
[2022-04-10] MEDS: TAMSULOSIN 0.4 MG CAP PO SCH (22:27)
[2022-04-10] MEDS: NORTRIPTYLINE 10 MG CAP PO SCH (22:27)
[2022-04-10] MEDS: ATORVASTATIN 20 MG TAB PO SCH (22:27)
[2022-04-11] VITALS (8 sets, daily range): BP systolic 91–105; BP diastolic 44–54; O2SAT 95–97
[2022-04-11] MEDS: SODIUM CHLORIDE HYPERTONIC 3% 15ML NEB SOL INH SCH ×4 (01:17→20:43)
[2022-04-11] MEDS: LEVALBUTEROL 1.25MG 0.5ML CONCENTRATE NEB INH SCH ×4 (01:17→20:43)
[2022-04-11] MEDS: LEVOTHYROXINE 150MCG TABLET (0.15MG) PO SCH (05:07)
[2022-04-11] MEDS: PERCOCET 5MG/325MG TAB PO PRN ×3 (05:08→21:37)
[2022-04-11 06:02] LABS: HEMATOCRIT 26.1 % (42.0-52.0); HEMOGLOBIN 8.1 g/dl (13.5-17.5); MEAN CORPUSCULAR HEMOGLOBIN 28.1 pg (27.0-33.0); MEAN CORPUSCULAR VOLUME 90.6 fl (80.0-96.0); PLATELET COUNT, AUTOMATED 374 10^3/uL (150-450); RED BLOOD COUNT 2.88 10^6/uL (4.30-6.10); WHITE BLOOD COUNT 4.6 10^3/uL (4.0-10.0)
[2022-04-11 06:22] LABS: INR 2.7
[2022-04-11 06:40] LABS: BLOOD UREA NITROGEN 11 MG/DL (7-18); CALCIUM LEVEL 8.4 MG/DL (8.8-10.2); CARBON DIOXIDE LEVEL 27 MEQ/L (21-32); CHLORIDE LEVEL 101 MEQ/L (98-107); CREATININE FOR GFR 0.67 MG/DL (0.70-1.30); GLOMERULAR FILTRATION RATE > 60.0 (>42); GLUCOSE, FASTING 88 MG/DL (70-100); POTASSIUM SERUM 4.3 MEQ/L (3.5-5.1); SODIUM LEVEL 133 MEQ/L (136-145)
[2022-04-11] MEDS: METOPROLOL SUCC *XL* 12.5MG PER 1/2 TAB (TopROL *XL*) PO SCH (09:00)
[2022-04-11] MEDS: LIDOCAINE 5% (LIDODERM) PATCH TD SCH (09:16)
[2022-04-11] MEDS: PROMETHAZINE 25MG/ML 1ML VIAL IV PRN (09:17)
[2022-04-11] MEDS: LACTOBACILLUS ACIDOPHILUS CAP (BACID) PO SCH ×2 (09:18→17:25)
[2022-04-11] MEDS: BACLOFEN 5MG PER 1/2 TABLET PO SCH ×3 (09:18→21:32)
[2022-04-11] MEDS: AMIODARONE 200 MG TAB (PACERONE) PO SCH ×2 (09:18→22:59)
[2022-04-11] MEDS: PANTOPRAZOLE 40MG TAB (PROTONIX) PO SCH (09:19)
[2022-04-11] MEDS: ACETAMINOPHEN TAB 650MG DOSE (2X325MG) PO PRN (09:19)
[2022-04-11] MEDS: ESCITALOPRAM OXALATE 5MG TABLET (LEXAPRO) PO SCH (09:19)
[2022-04-11] MEDS: FERROUS SULFATE 325MG TAB PO SCH (09:19)
[2022-04-11] MEDS: guaiFENesin ER 600 MG TAB PO SCH ×2 (09:20→21:32)
[2022-04-11] MEDS: TOLVAPTAN 7.5 MG HALF-TAB PO SCH (11:47)
[2022-04-11] MEDS: ONDANSETRON 4MG ORAL DISINTEGRATING TAB PO PRN ×2 (13:39→21:51)
[2022-04-11] MEDS ORDERED: NS 500 ML IV ONE (21:25)
[2022-04-11] MEDS: ATORVASTATIN 20 MG TAB PO SCH (21:32)
[2022-04-11] MEDS: TAMSULOSIN 0.4 MG CAP PO SCH (21:32)
[2022-04-11] MEDS: NORTRIPTYLINE 10 MG CAP PO SCH (21:32)
[2022-04-11] MEDS: **NOTE PATIENT COMMENT** MISC XX SCH (21:35)
[2022-04-11] MEDS: MESALAMINE 250 MG CR CAP PO SCH (21:35)
[2022-04-12] MEDS: SODIUM CHLORIDE HYPERTONIC 3% 15ML NEB SOL INH SCH ×4 (03:09→20:29)
[2022-04-12] MEDS: LEVALBUTEROL 1.25MG 0.5ML CONCENTRATE NEB INH SCH ×4 (03:09→20:29)
[2022-04-12 05:15] VITALS: BP 93/43
[2022-04-12] MEDS: LEVOTHYROXINE 150MCG TABLET (0.15MG) PO SCH (05:53)
[2022-04-12 06:07] LABS: HEMATOCRIT 24.8 % (42.0-52.0); HEMOGLOBIN 7.9 g/dl (13.5-17.5); MEAN CORPUSCULAR HEMOGLOBIN 28.6 pg (27.0-33.0); MEAN CORPUSCULAR HGB CONC 31.9 g/dl (32.0-36.5); MEAN CORPUSCULAR VOLUME 89.9 fl (80.0-96.0); PLATELET COUNT, AUTOMATED 361 10^3/uL (150-450); RED BLOOD COUNT 2.76 10^6/uL (4.30-6.10); WHITE BLOOD COUNT 11.7 10^3/uL (4.0-10.0)
[2022-04-12 06:20] LABS: INR 2.59; PROTHROMBIN TIME 28.1 SECONDS (12.7-14.5)
[2022-04-12 06:35] LABS: BLOOD UREA NITROGEN 13 MG/DL (7-18); CALCIUM LEVEL 8.4 MG/DL (8.8-10.2); CARBON DIOXIDE LEVEL 26 MEQ/L (21-32); CHLORIDE LEVEL 100 MEQ/L (98-107); GLOMERULAR FILTRATION RATE > 60.0 (>42); GLUCOSE, FASTING 98 MG/DL (70-100); POTASSIUM SERUM 4.6 MEQ/L (3.5-5.1); SODIUM LEVEL 131 MEQ/L (136-145)
[2022-04-12] MEDS: ONDANSETRON 4MG ORAL DISINTEGRATING TAB PO PRN ×2 (07:47→18:12)
[2022-04-12] MEDS: AMIODARONE 200 MG TAB (PACERONE) PO SCH ×2 (09:00→20:32)
[2022-04-12] MEDS: METOPROLOL SUCC *XL* 12.5MG PER 1/2 TAB (TopROL *XL*) PO SCH (09:00)
[2022-04-12 09:30] VITALS: BP 104/46
[2022-04-12] MEDS: LACTOBACILLUS ACIDOPHILUS CAP (BACID) PO SCH ×2 (09:42→17:33)
[2022-04-12] MEDS: BACLOFEN 5MG PER 1/2 TABLET PO SCH ×3 (09:42→20:41)
[2022-04-12] MEDS: ESCITALOPRAM OXALATE 5MG TABLET (LEXAPRO) PO SCH (09:42)
[2022-04-12] MEDS: guaiFENesin ER 600 MG TAB PO SCH ×2 (09:42→20:42)
[2022-04-12] MEDS: LIDOCAINE 5% (LIDODERM) PATCH TD SCH (09:43)
[2022-04-12] MEDS: PANTOPRAZOLE 40MG TAB (PROTONIX) PO SCH (09:43)
[2022-04-12] MEDS: FERROUS SULFATE 325MG TAB PO SCH (09:43)
[2022-04-12] MEDS: PERCOCET 5MG/325MG TAB PO PRN ×2 (09:47→20:43)
[2022-04-12] MEDS: TOLVAPTAN 7.5 MG HALF-TAB PO SCH (13:14)
[2022-04-12] MEDS: fentaNYL 50 MCG/HR PATCH TOP SCH (13:15)
[2022-04-12] MEDS: FENTANYL REMOVAL DOCUMENTATION MISC XX SCH (13:16)
[2022-04-12 14:00] VITALS: BP 100/50
[2022-04-12 20:31] VITALS: BP 100/46
[2022-04-12] MEDS: MESALAMINE 250 MG CR CAP PO SCH (20:41)
[2022-04-12] MEDS: NORTRIPTYLINE 10 MG CAP PO SCH (20:41)
[2022-04-12] MEDS: TAMSULOSIN 0.4 MG CAP PO SCH (20:42)
[2022-04-12] MEDS: ATORVASTATIN 20 MG TAB PO SCH (20:42)
[2022-04-12] MEDS: **NOTE PATIENT COMMENT** MISC XX SCH (20:43)
[2022-04-12] MEDS: PROMETHAZINE 25MG/ML 1ML VIAL IV PRN (20:56)
[2022-04-13 02:00] VITALS: O2SAT 93
[2022-04-13] MEDS: LEVALBUTEROL 1.25MG 0.5ML CONCENTRATE NEB INH SCH ×4 (02:00→20:48)
[2022-04-13] MEDS: SODIUM CHLORIDE HYPERTONIC 3% 15ML NEB SOL INH SCH ×4 (02:00→20:48)
[2022-04-13 06:00] VITALS: BP 102/48
[2022-04-13] MEDS: LEVOTHYROXINE 150MCG TABLET (0.15MG) PO SCH (06:04)
[2022-04-13] MEDS: AMIODARONE 200 MG TAB (PACERONE) PO SCH ×2 (08:35→21:09)
[2022-04-13] MEDS: guaiFENesin ER 600 MG TAB PO SCH ×2 (08:35→20:31)
[2022-04-13] MEDS: METOPROLOL SUCC *XL* 12.5MG PER 1/2 TAB (TopROL *XL*) PO SCH (08:35)
[2022-04-13] MEDS: FERROUS SULFATE 325MG TAB PO SCH (08:35)
[2022-04-13] MEDS: ESCITALOPRAM OXALATE 5MG TABLET (LEXAPRO) PO SCH (08:57)
[2022-04-13] MEDS: BACLOFEN 5MG PER 1/2 TABLET PO SCH ×3 (08:57→20:31)
[2022-04-13] MEDS: PANTOPRAZOLE 40MG TAB (PROTONIX) PO SCH (08:57)
[2022-04-13] MEDS: LACTOBACILLUS ACIDOPHILUS CAP (BACID) PO SCH ×2 (08:57→17:18)
[2022-04-13] MEDS: LIDOCAINE 5% (LIDODERM) PATCH TD SCH (08:59)
[2022-04-13 10:53] VITALS: O2SAT 98
[2022-04-13] MEDS: TOLVAPTAN 7.5 MG HALF-TAB PO SCH (12:22)
[2022-04-13 14:00] VITALS: BP 119/54
[2022-04-13] MEDS: PROMETHAZINE 25MG/ML 1ML VIAL IV PRN (16:31)
[2022-04-13] MEDS: NORTRIPTYLINE 10 MG CAP PO SCH (20:32)
[2022-04-13] MEDS: TAMSULOSIN 0.4 MG CAP PO SCH (20:32)
[2022-04-13] MEDS: ATORVASTATIN 20 MG TAB PO SCH (20:32)
[2022-04-13] MEDS: MESALAMINE 250 MG CR CAP PO SCH (20:33)
[2022-04-13] MEDS: **NOTE PATIENT COMMENT** MISC XX SCH (20:33)
[2022-04-13] MEDS: PERCOCET 5MG/325MG TAB PO PRN (21:09)
[2022-04-13 21:50] VITALS: BP 94/58
[2022-04-14] MEDS: SODIUM CHLORIDE HYPERTONIC 3% 15ML NEB SOL INH SCH ×4 (02:00→20:33)
[2022-04-14] MEDS: LEVALBUTEROL 1.25MG 0.5ML CONCENTRATE NEB INH SCH ×4 (02:00→20:33)
[2022-04-14] MEDS: PERCOCET 5MG/325MG TAB PO PRN ×2 (05:48→17:46)
[2022-04-14] MEDS: LEVOTHYROXINE 150MCG TABLET (0.15MG) PO SCH (05:48)
[2022-04-14 06:00] VITALS: BP 94/48
[2022-04-14 07:33] LABS: HEMATOCRIT 25.7 % (42.0-52.0); MEAN CORPUSCULAR HEMOGLOBIN 28.3 pg (27.0-33.0); MEAN CORPUSCULAR HGB CONC 31.1 g/dl (32.0-36.5); MEAN CORPUSCULAR VOLUME 90.8 fl (80.0-96.0); PLATELET COUNT, AUTOMATED 344 10^3/uL (150-450); RED BLOOD COUNT 2.83 10^6/uL (4.30-6.10); WHITE BLOOD COUNT 6.8 10^3/uL (4.0-10.0)
[2022-04-14 08:19] LABS: BLOOD UREA NITROGEN 11 MG/DL (7-18); CALCIUM LEVEL 8.3 MG/DL (8.8-10.2); CARBON DIOXIDE LEVEL 26 MEQ/L (21-32); CHLORIDE LEVEL 99 MEQ/L (98-107); CREATININE FOR GFR 0.57 MG/DL (0.70-1.30); GLOMERULAR FILTRATION RATE > 60.0 (>42); GLUCOSE, FASTING 81 MG/DL (70-100); POTASSIUM SERUM 4.2 MEQ/L (3.5-5.1); SODIUM LEVEL 131 MEQ/L (136-145)
[2022-04-14] MEDS: PANTOPRAZOLE 40MG TAB (PROTONIX) PO SCH ×2 (09:00→09:18)
[2022-04-14] MEDS: FERROUS SULFATE 325MG TAB PO SCH (09:00)
[2022-04-14] MEDS: METOPROLOL SUCC *XL* 12.5MG PER 1/2 TAB (TopROL *XL*) PO SCH (09:00)
[2022-04-14] MEDS: guaiFENesin ER 600 MG TAB PO SCH ×2 (09:00→22:16)
[2022-04-14] MEDS: AMIODARONE 200 MG TAB (PACERONE) PO SCH ×2 (09:00→22:17)
[2022-04-14] MEDS: LIDOCAINE 5% (LIDODERM) PATCH TD SCH (09:17)
[2022-04-14] MEDS: ESCITALOPRAM OXALATE 5MG TABLET (LEXAPRO) PO SCH (09:18)
[2022-04-14] MEDS: LACTOBACILLUS ACIDOPHILUS CAP (BACID) PO SCH ×2 (09:18→17:43)
[2022-04-14] MEDS: BACLOFEN 5MG PER 1/2 TABLET PO SCH ×3 (09:18→22:17)
[2022-04-14] MEDS: TOLVAPTAN 7.5 MG HALF-TAB PO SCH (13:06)
[2022-04-14 14:00] VITALS: BP 110/56
[2022-04-14 14:30] VITALS: O2SAT 96
[2022-04-14] MEDS: PROMETHAZINE 25MG/ML 1ML VIAL IV PRN (17:52)
[2022-04-14 22:00] VITALS: BP 112/46
[2022-04-14] MEDS: MESALAMINE 250 MG CR CAP PO SCH (22:16)
[2022-04-14] MEDS: NORTRIPTYLINE 10 MG CAP PO SCH (22:17)
[2022-04-14] MEDS: TAMSULOSIN 0.4 MG CAP PO SCH ×2 (22:17→22:20)
[2022-04-14] MEDS: ATORVASTATIN 20 MG TAB PO SCH (22:18)
[2022-04-14] MEDS: **NOTE PATIENT COMMENT** MISC XX SCH (22:19)
[2022-04-15] VITALS (7 sets, daily range): BP systolic 98–120; BP diastolic 44–56; O2SAT 94–96
[2022-04-15] MEDS: LEVALBUTEROL 1.25MG 0.5ML CONCENTRATE NEB INH SCH ×4 (02:00→19:27)
[2022-04-15] MEDS: SODIUM CHLORIDE HYPERTONIC 3% 15ML NEB SOL INH SCH ×4 (02:00→19:26)
[2022-04-15] MEDS: LEVOTHYROXINE 150MCG TABLET (0.15MG) PO SCH (05:41)
[2022-04-15 05:55] LABS: HEMATOCRIT 25.1 % (42.0-52.0); HEMOGLOBIN 8.1 g/dl (13.5-17.5); MEAN CORPUSCULAR HEMOGLOBIN 28.3 pg (27.0-33.0); MEAN CORPUSCULAR HGB CONC 32.3 g/dl (32.0-36.5); MEAN CORPUSCULAR VOLUME 87.8 fl (80.0-96.0); PLATELET COUNT, AUTOMATED 349 10^3/uL (150-450); RED BLOOD COUNT 2.86 10^6/uL (4.30-6.10); WHITE BLOOD COUNT 6.2 10^3/uL (4.0-10.0)
[2022-04-15 06:07] LABS: INR 2.89; PROTHROMBIN TIME 30.6 SECONDS (12.7-14.5)
[2022-04-15 06:27] LABS: BLOOD UREA NITROGEN 10 MG/DL (7-18); CALCIUM LEVEL 8.3 MG/DL (8.8-10.2); CARBON DIOXIDE LEVEL 28 MEQ/L (21-32); CHLORIDE LEVEL 100 MEQ/L (98-107); CREATININE FOR GFR 0.64 MG/DL (0.70-1.30); GLOMERULAR FILTRATION RATE > 60.0 (>42); GLUCOSE, FASTING 80 MG/DL (70-100); SODIUM LEVEL 133 MEQ/L (136-145)
[2022-04-15] MEDS: PERCOCET 5MG/325MG TAB PO PRN ×2 (06:54→13:30)
[2022-04-15] MEDS: ONDANSETRON 4MG ORAL DISINTEGRATING TAB PO PRN (08:27)
[2022-04-15] MEDS: AMIODARONE 200 MG TAB (PACERONE) PO SCH ×2 (09:00→21:00)
[2022-04-15] MEDS: METOPROLOL SUCC *XL* 12.5MG PER 1/2 TAB (TopROL *XL*) PO SCH (09:00)
[2022-04-15] MEDS: FERROUS SULFATE 325MG TAB PO SCH (09:04)
[2022-04-15] MEDS: BACLOFEN 5MG PER 1/2 TABLET PO SCH ×3 (09:04→21:06)
[2022-04-15] MEDS: ESCITALOPRAM OXALATE 5MG TABLET (LEXAPRO) PO SCH (09:04)
[2022-04-15] MEDS: guaiFENesin ER 600 MG TAB PO SCH ×2 (09:04→20:49)
[2022-04-15] MEDS: PANTOPRAZOLE 40MG TAB (PROTONIX) PO SCH (09:04)
[2022-04-15] MEDS: LACTOBACILLUS ACIDOPHILUS CAP (BACID) PO SCH ×2 (09:04→17:17)
[2022-04-15] MEDS: LIDOCAINE 5% (LIDODERM) PATCH TD SCH (09:05)
[2022-04-15] MEDS: TOLVAPTAN 7.5 MG HALF-TAB PO SCH (11:34)
[2022-04-15] MEDS: FENTANYL REMOVAL DOCUMENTATION MISC XX SCH (13:27)
[2022-04-15] MEDS: fentaNYL 50 MCG/HR PATCH TOP SCH (13:27)
[2022-04-15] MEDS: PROMETHAZINE 25MG/ML 1ML VIAL IV PRN (17:59)
[2022-04-15] MEDS: TAMSULOSIN 0.4 MG CAP PO SCH (20:48)
[2022-04-15] MEDS: MESALAMINE 250 MG CR CAP PO SCH (21:05)
[2022-04-15] MEDS: NORTRIPTYLINE 10 MG CAP PO SCH (21:06)
[2022-04-15] MEDS: ATORVASTATIN 20 MG TAB PO SCH (21:06)
[2022-04-15] MEDS: **NOTE PATIENT COMMENT** MISC XX SCH (21:06)
[2022-04-15] MEDS ORDERED: SODIUM CHLORIDE 0.9% 1000ML IV ONE (21:55)
[2022-04-16] MEDS: SODIUM CHLORIDE HYPERTONIC 3% 15ML NEB SOL INH SCH ×4 (00:46→20:26)
[2022-04-16] MEDS: LEVALBUTEROL 1.25MG 0.5ML CONCENTRATE NEB INH SCH ×4 (00:46→20:26)
[2022-04-16 05:10] VITALS: BP 118/42
[2022-04-16] MEDS: ONDANSETRON 4MG ORAL DISINTEGRATING TAB PO PRN (05:17)
[2022-04-16] MEDS: LEVOTHYROXINE 150MCG TABLET (0.15MG) PO SCH (05:32)
[2022-04-16 06:29] LABS: HEMATOCRIT 26.4 % (42.0-52.0); HEMOGLOBIN 8.1 g/dl (13.5-17.5); MEAN CORPUSCULAR HEMOGLOBIN 27.8 pg (27.0-33.0); MEAN CORPUSCULAR HGB CONC 30.7 g/dl (32.0-36.5); MEAN CORPUSCULAR VOLUME 90.7 fl (80.0-96.0); PLATELET COUNT, AUTOMATED 360 10^3/uL (150-450); RED BLOOD COUNT 2.91 10^6/uL (4.30-6.10); WHITE BLOOD COUNT 8.9 10^3/uL (4.0-10.0)
[2022-04-16 06:42] LABS: INR 2.38; PROTHROMBIN TIME 26.4 SECONDS (12.7-14.5)
[2022-04-16 06:55] LABS: BLOOD UREA NITROGEN 10 MG/DL (7-18); CALCIUM LEVEL 8.3 MG/DL (8.8-10.2); CARBON DIOXIDE LEVEL 25 MEQ/L (21-32); CHLORIDE LEVEL 100 MEQ/L (98-107); CREATININE FOR GFR 0.61 MG/DL (0.70-1.30); GLOMERULAR FILTRATION RATE > 60.0 (>42); GLUCOSE, FASTING 93 MG/DL (70-100); POTASSIUM SERUM 3.8 MEQ/L (3.5-5.1); SODIUM LEVEL 132 MEQ/L (136-145)
[2022-04-16] MEDS: AMIODARONE 200 MG TAB (PACERONE) PO SCH ×2 (08:50→22:36)
[2022-04-16] MEDS: METOPROLOL SUCC *XL* 12.5MG PER 1/2 TAB (TopROL *XL*) PO SCH (08:53)
[2022-04-16 09:00] VITALS: O2SAT 93
[2022-04-16] MEDS: LIDOCAINE 5% (LIDODERM) PATCH TD SCH (09:23)
[2022-04-16] MEDS: FERROUS SULFATE 325MG TAB PO SCH (09:24)
[2022-04-16] MEDS: ESCITALOPRAM OXALATE 5MG TABLET (LEXAPRO) PO SCH (09:24)
[2022-04-16] MEDS: PERCOCET 5MG/325MG TAB PO PRN ×3 (09:24→22:38)
[2022-04-16] MEDS: BACLOFEN 5MG PER 1/2 TABLET PO SCH ×3 (09:24→22:33)
[2022-04-16] MEDS: LACTOBACILLUS ACIDOPHILUS CAP (BACID) PO SCH ×2 (09:24→17:54)
[2022-04-16] MEDS: PANTOPRAZOLE 40MG TAB (PROTONIX) PO SCH (09:25)
[2022-04-16] MEDS: guaiFENesin ER 600 MG TAB PO SCH ×2 (09:25→22:33)
[2022-04-16 14:00] VITALS: BP 98/50
[2022-04-16 20:00] VITALS: BP 100/46
[2022-04-16] MEDS: MESALAMINE 250 MG CR CAP PO SCH (22:33)
[2022-04-16] MEDS: TAMSULOSIN 0.4 MG CAP PO SCH (22:33)
[2022-04-16] MEDS: ATORVASTATIN 20 MG TAB PO SCH (22:33)
[2022-04-16] MEDS: NORTRIPTYLINE 10 MG CAP PO SCH (22:34)
[2022-04-16] MEDS: **NOTE PATIENT COMMENT** MISC XX SCH (22:38)
[2022-04-17] MEDS: LEVALBUTEROL 1.25MG 0.5ML CONCENTRATE NEB INH SCH ×4 (02:00→20:03)
[2022-04-17] MEDS: SODIUM CHLORIDE HYPERTONIC 3% 15ML NEB SOL INH SCH ×4 (02:00→20:03)
[2022-04-17 02:20] VITALS: O2SAT 90
[2022-04-17 06:00] VITALS: BP 100/47
[2022-04-17] MEDS: PERCOCET 5MG/325MG TAB PO PRN ×3 (06:02→22:03)
[2022-04-17] MEDS: LEVOTHYROXINE 150MCG TABLET (0.15MG) PO SCH (06:02)
[2022-04-17] MEDS: ONDANSETRON 4MG ORAL DISINTEGRATING TAB PO PRN ×2 (06:05→17:55)
[2022-04-17 06:45] LABS: HEMATOCRIT 26.7 % (42.0-52.0); MEAN CORPUSCULAR HEMOGLOBIN 27.7 pg (27.0-33.0); MEAN CORPUSCULAR VOLUME 92.4 fl (80.0-96.0); PLATELET COUNT, AUTOMATED 350 10^3/uL (150-450); RED BLOOD COUNT 2.89 10^6/uL (4.30-6.10); WHITE BLOOD COUNT 5.4 10^3/uL (4.0-10.0)
[2022-04-17 06:59] LABS: INR 2.06; PROTHROMBIN TIME 23.6 SECONDS (12.7-14.5)
[2022-04-17 07:17] LABS: BLOOD UREA NITROGEN 10 MG/DL (7-18); CALCIUM LEVEL 8.3 MG/DL (8.8-10.2); CARBON DIOXIDE LEVEL 27 MEQ/L (21-32); CHLORIDE LEVEL 100 MEQ/L (98-107); CREATININE FOR GFR 0.66 MG/DL (0.70-1.30); GLOMERULAR FILTRATION RATE > 60.0 (>42); GLUCOSE, FASTING 84 MG/DL (70-100); POTASSIUM SERUM 4.1 MEQ/L (3.5-5.1); SODIUM LEVEL 133 MEQ/L (136-145)
[2022-04-17] MEDS: METOPROLOL SUCC *XL* 12.5MG PER 1/2 TAB (TopROL *XL*) PO SCH (09:00)
[2022-04-17] MEDS: AMIODARONE 200 MG TAB (PACERONE) PO SCH ×2 (09:00→22:04)
[2022-04-17] MEDS: BACLOFEN 5MG PER 1/2 TABLET PO SCH ×3 (09:06→22:01)
[2022-04-17] MEDS: ESCITALOPRAM OXALATE 5MG TABLET (LEXAPRO) PO SCH (09:06)
[2022-04-17] MEDS: TOLVAPTAN 7.5 MG HALF-TAB PO SCH (09:06)
[2022-04-17] MEDS: LACTOBACILLUS ACIDOPHILUS CAP (BACID) PO SCH ×2 (09:07→17:56)
[2022-04-17] MEDS: guaiFENesin ER 600 MG TAB PO SCH (09:07)
[2022-04-17] MEDS: PANTOPRAZOLE 40MG TAB (PROTONIX) PO SCH (09:07)
[2022-04-17] MEDS: FERROUS SULFATE 325MG TAB PO SCH (09:07)
[2022-04-17] MEDS: LIDOCAINE 5% (LIDODERM) PATCH TD SCH (09:08)
[2022-04-17] MEDS: ACETAMINOPHEN TAB 650MG DOSE (2X325MG) PO PRN (09:10)
[2022-04-17 14:00] VITALS: BP 108/50
[2022-04-17 20:00] VITALS: BP 111/48
[2022-04-17] MEDS: **NOTE PATIENT COMMENT** MISC XX SCH (21:00)
[2022-04-17 22:00] VITALS: O2SAT 92
[2022-04-17] MEDS: guaiFENesin SYRUP 200MG 10ML UDC PO PRN (22:00)
[2022-04-17] MEDS: MESALAMINE 250 MG CR CAP PO SCH (22:02)
[2022-04-17] MEDS: TAMSULOSIN 0.4 MG CAP PO SCH (22:03)
[2022-04-17] MEDS: ATORVASTATIN 20 MG TAB PO SCH (22:04)
[2022-04-17] MEDS: NORTRIPTYLINE 10 MG CAP PO SCH (22:04)
[2022-04-17] MEDS: PROMETHAZINE 25MG/ML 1ML VIAL IV PRN (22:12)
[2022-04-18] MEDS: SODIUM CHLORIDE HYPERTONIC 3% 15ML NEB SOL INH SCH ×4 (02:38→19:16)
[2022-04-18] MEDS: LEVALBUTEROL 1.25MG 0.5ML CONCENTRATE NEB INH SCH ×4 (02:38→19:16)
[2022-04-18] MEDS: LEVOTHYROXINE 150MCG TABLET (0.15MG) PO SCH (05:55)
[2022-04-18 06:00] VITALS: BP 106/47
[2022-04-18 06:37] LABS: HEMATOCRIT 26.3 % (42.0-52.0); HEMOGLOBIN 8.1 g/dl (13.5-17.5); MEAN CORPUSCULAR HEMOGLOBIN 27.8 pg (27.0-33.0); MEAN CORPUSCULAR HGB CONC 30.8 g/dl (32.0-36.5); MEAN CORPUSCULAR VOLUME 90.4 fl (80.0-96.0); PLATELET COUNT, AUTOMATED 332 10^3/uL (150-450); RED BLOOD COUNT 2.91 10^6/uL (4.30-6.10); WHITE BLOOD COUNT 6.5 10^3/uL (4.0-10.0)
[2022-04-18 07:02] LABS: INR 2.07; PROTHROMBIN TIME 23.7 SECONDS (12.5-14.5)
[2022-04-18 07:04] LABS: BLOOD UREA NITROGEN 10 MG/DL (7-18); CALCIUM LEVEL 8.1 MG/DL (8.8-10.2); CARBON DIOXIDE LEVEL 26 MEQ/L (21-32); CHLORIDE LEVEL 100 MEQ/L (98-107); CREATININE FOR GFR 0.62 MG/DL (0.70-1.30); GLOMERULAR FILTRATION RATE > 60.0 (>42); GLUCOSE, FASTING 86 MG/DL (70-100); POTASSIUM SERUM 4.3 MEQ/L (3.5-5.1); SODIUM LEVEL 133 MEQ/L (136-145)
[2022-04-18] MEDS: LIDOCAINE 5% (LIDODERM) PATCH TD SCH (08:30)
[2022-04-18] MEDS: LACTOBACILLUS ACIDOPHILUS CAP (BACID) PO SCH ×2 (08:31→16:42)
[2022-04-18] MEDS: TOLVAPTAN 7.5 MG HALF-TAB PO SCH (08:31)
[2022-04-18] MEDS: FERROUS SULFATE 325MG TAB PO SCH (08:31)
[2022-04-18] MEDS: METOPROLOL SUCC *XL* 12.5MG PER 1/2 TAB (TopROL *XL*) PO SCH (08:31)
[2022-04-18] MEDS: AMIODARONE 200 MG TAB (PACERONE) PO SCH ×2 (08:31→21:46)
[2022-04-18] MEDS: BACLOFEN 5MG PER 1/2 TABLET PO SCH (08:31)
[2022-04-18] MEDS: ESCITALOPRAM OXALATE 5MG TABLET (LEXAPRO) PO SCH (08:31)
[2022-04-18] MEDS: PANTOPRAZOLE 40MG TAB (PROTONIX) PO SCH (08:31)
[2022-04-18] MEDS: ONDANSETRON 4MG ORAL DISINTEGRATING TAB PO PRN ×2 (08:37→16:42)
[2022-04-18] MEDS ORDERED: fentaNYL 75 MCG/HR PATCH TOP SCH (09:00)
[2022-04-18] MEDS ORDERED: IBUPROFEN 800 MG TAB PO PRN (10:20)
[2022-04-18] MEDS ORDERED: ENOXAPARIN 40MG/0.4ML SYRINGE (J1650 PER 10MG) SC SCH (10:50)
[2022-04-18] MEDS ORDERED: ACETAMINOPHEN 325 MG TAB PO SCH (12:00)
[2022-04-18] MEDS: ENOXAPARIN 60MG/0.6ML SYRINGE (J1650 PER 10MG) SC SCH ×2 (12:20→21:44)
[2022-04-18] MEDS: ACETAMINOPHEN 500 MG TAB PO SCH ×2 (12:20→16:43)
[2022-04-18] MEDS: FENTANYL REMOVAL DOCUMENTATION MISC XX SCH (12:22)
[2022-04-18] MEDS: ASPIRIN 81MG ENTERIC TABLET PO SCH (12:27)
[2022-04-18 13:55] VITALS: O2SAT 98
[2022-04-18 14:00] VITALS: BP 94/42
[2022-04-18 14:05] VITALS: BP 98/46
[2022-04-18] MEDS: BACLOFEN 10 MG TAB PO SCH ×2 (16:42→21:46)
[2022-04-18] MEDS: oxyCODONE 5MG TAB PO PRN ×2 (16:50→21:45)
[2022-04-18] MEDS ORDERED: GABAPENTIN 100 MG CAP PO SCH (21:00)
[2022-04-18] MEDS: guaiFENesin SYRUP 200MG 10ML UDC PO PRN (21:44)
[2022-04-18] MEDS: MESALAMINE 250 MG CR CAP PO SCH (21:44)
[2022-04-18] MEDS: TAMSULOSIN 0.4 MG CAP PO SCH (21:45)
[2022-04-18] MEDS: **NOTE PATIENT COMMENT** MISC XX SCH (21:46)
[2022-04-18] MEDS: ATORVASTATIN 20 MG TAB PO SCH (21:46)
[2022-04-18] MEDS: PROMETHAZINE 25MG/ML 1ML VIAL IV PRN (21:47)
[2022-04-18 22:00] VITALS: BP 105/46
[2022-04-19] MEDS: ACETAMINOPHEN 500 MG TAB PO SCH ×5 (00:21→23:34)
[2022-04-19] MEDS: SODIUM CHLORIDE HYPERTONIC 3% 15ML NEB SOL INH SCH ×4 (01:30→19:48)
[2022-04-19] MEDS: LEVALBUTEROL 1.25MG 0.5ML CONCENTRATE NEB INH SCH ×4 (01:30→19:48)
[2022-04-19 05:49] VITALS: BP 115/96
[2022-04-19] MEDS: LEVOTHYROXINE 150MCG TABLET (0.15MG) PO SCH (06:03)
[2022-04-19 06:33] LABS: HEMATOCRIT 29.4 % (42.0-52.0); HEMOGLOBIN 9.3 g/dl (13.5-17.5); MEAN CORPUSCULAR HEMOGLOBIN 28.6 pg (27.0-33.0); MEAN CORPUSCULAR HGB CONC 31.6 g/dl (32.0-36.5); MEAN CORPUSCULAR VOLUME 90.5 fl (80.0-96.0); PLATELET COUNT, AUTOMATED 370 10^3/uL (150-450); RED BLOOD COUNT 3.25 10^6/uL (4.30-6.10); WHITE BLOOD COUNT 9.4 10^3/uL (4.0-10.0)
[2022-04-19 07:04] LABS: BLOOD UREA NITROGEN 9 MG/DL (7-18); CALCIUM LEVEL 8.3 MG/DL (8.8-10.2); CARBON DIOXIDE LEVEL 23 MEQ/L (21-32); CHLORIDE LEVEL 102 MEQ/L (98-107); CREATININE FOR GFR 0.68 MG/DL (0.70-1.30); GLOMERULAR FILTRATION RATE > 60.0 (>42); GLUCOSE, FASTING 80 MG/DL (70-100); POTASSIUM SERUM 4.2 MEQ/L (3.5-5.1); SODIUM LEVEL 132 MEQ/L (136-145)
[2022-04-19] MEDS: ONDANSETRON 4MG ORAL DISINTEGRATING TAB PO PRN (08:12)
[2022-04-19 08:49] LABS: INR 1.9; PROTHROMBIN TIME 22.1 SECONDS (12.5-14.5)
[2022-04-19] MEDS: METOPROLOL SUCC *XL* 12.5MG PER 1/2 TAB (TopROL *XL*) PO SCH (09:00)
[2022-04-19] MEDS: LIDOCAINE 5% (LIDODERM) PATCH TD SCH (10:08)
[2022-04-19] MEDS: ENOXAPARIN 60MG/0.6ML SYRINGE (J1650 PER 10MG) SC SCH ×2 (10:09→21:22)
[2022-04-19] MEDS: TOLVAPTAN 7.5 MG HALF-TAB PO SCH (10:09)
[2022-04-19] MEDS: ESCITALOPRAM OXALATE 5MG TABLET (LEXAPRO) PO SCH (10:09)
[2022-04-19] MEDS: BACLOFEN 10 MG TAB PO SCH ×3 (10:10→21:23)
[2022-04-19] MEDS: AMIODARONE 200 MG TAB (PACERONE) PO SCH ×2 (10:11→21:00)
[2022-04-19] MEDS: FERROUS SULFATE 325MG TAB PO SCH (10:11)
[2022-04-19] MEDS: LACTOBACILLUS ACIDOPHILUS CAP (BACID) PO SCH ×2 (10:11→17:33)
[2022-04-19] MEDS: PANTOPRAZOLE 40MG TAB (PROTONIX) PO SCH (10:11)
[2022-04-19] MEDS: ASPIRIN 81MG ENTERIC TABLET PO SCH (10:11)
[2022-04-19] MEDS: GABAPENTIN 100 MG CAP PO SCH ×2 (10:16→21:24)
[2022-04-19] MEDS ORDERED: PROCHLORPERAZINE 10MG 2ML VIAL IV PRN ×2 (10:45→16:20)
[2022-04-19] MEDS ORDERED: ONDANSETRON 4MG ORAL DISINTEGRATING TAB PO PRN ×2 (12:15)
[2022-04-19 14:00] VITALS: BP 101/40
[2022-04-19 20:00] VITALS: BP 103/41
[2022-04-19] MEDS: MESALAMINE 250 MG CR CAP PO SCH (21:23)
[2022-04-19] MEDS: TAMSULOSIN 0.4 MG CAP PO SCH (21:23)
[2022-04-19] MEDS: ATORVASTATIN 20 MG TAB PO SCH (21:23)
[2022-04-19] MEDS: **NOTE PATIENT COMMENT** MISC XX SCH (21:24)
[2022-04-19 22:00] VITALS: O2SAT 95
[2022-04-20] MEDS: SODIUM CHLORIDE HYPERTONIC 3% 15ML NEB SOL INH SCH ×5 (01:26→21:09)
[2022-04-20] MEDS: LEVALBUTEROL 1.25MG 0.5ML CONCENTRATE NEB INH SCH ×5 (01:26→21:09)
[2022-04-20] MEDS: ACETAMINOPHEN 500 MG TAB PO SCH ×3 (05:44→16:19)
[2022-04-20] MEDS: LEVOTHYROXINE 150MCG TABLET (0.15MG) PO SCH (05:44)
[2022-04-20 06:00] VITALS: BP 117/46
[2022-04-20 07:01] LABS: HEMATOCRIT 25.8 % (42.0-52.0); HEMOGLOBIN 8.3 g/dl (13.5-17.5); MEAN CORPUSCULAR HEMOGLOBIN 28.2 pg (27.0-33.0); MEAN CORPUSCULAR HGB CONC 32.2 g/dl (32.0-36.5); MEAN CORPUSCULAR VOLUME 87.8 fl (80.0-96.0); PLATELET COUNT, AUTOMATED 361 10^3/uL (150-450); RED BLOOD COUNT 2.94 10^6/uL (4.30-6.10); WHITE BLOOD COUNT 6.6 10^3/uL (4.0-10.0)
[2022-04-20 07:05] LABS: INR 1.86; PROTHROMBIN TIME 21.8 SECONDS (12.5-14.5)
[2022-04-20 07:35] LABS: BLOOD UREA NITROGEN 10 MG/DL (7-18); CARBON DIOXIDE LEVEL 26 MEQ/L (21-32); CHLORIDE LEVEL 102 MEQ/L (98-107); CREATININE FOR GFR 0.62 MG/DL (0.70-1.30); GLOMERULAR FILTRATION RATE > 60.0 (>42); GLUCOSE, FASTING 85 MG/DL (70-100); POTASSIUM SERUM 3.7 MEQ/L (3.5-5.1); SODIUM LEVEL 134 MEQ/L (136-145)
[2022-04-20] MEDS: LACTOBACILLUS ACIDOPHILUS CAP (BACID) PO SCH ×2 (09:29→16:18)
[2022-04-20] MEDS: TOLVAPTAN 7.5 MG HALF-TAB PO SCH (09:29)
[2022-04-20] MEDS: ESCITALOPRAM OXALATE 5MG TABLET (LEXAPRO) PO SCH (09:30)
[2022-04-20] MEDS: METOCLOPRAMIDE INJ 10MG/2ML VIAL IV SCH ×3 (09:30→22:36)
[2022-04-20] MEDS: PANTOPRAZOLE 40MG TAB (PROTONIX) PO SCH (09:30)
[2022-04-20] MEDS: FERROUS SULFATE 325MG TAB PO SCH (09:30)
[2022-04-20] MEDS: ASPIRIN 81MG ENTERIC TABLET PO SCH (09:30)
[2022-04-20] MEDS: LIDOCAINE 5% (LIDODERM) PATCH TD SCH (09:30)
[2022-04-20] MEDS: ENOXAPARIN 60MG/0.6ML SYRINGE (J1650 PER 10MG) SC SCH ×2 (09:30→21:02)
[2022-04-20] MEDS: BACLOFEN 10 MG TAB PO SCH ×3 (09:30→21:01)
[2022-04-20] MEDS: GABAPENTIN 100 MG CAP PO SCH ×2 (09:30→21:01)
[2022-04-20] MEDS: METOPROLOL SUCC *XL* 12.5MG PER 1/2 TAB (TopROL *XL*) PO SCH (09:33)
[2022-04-20] MEDS: AMIODARONE 200 MG TAB (PACERONE) PO SCH ×2 (09:33→21:01)
[2022-04-20] MEDS ORDERED: GABAPENTIN 100 MG CAP PO ONE (10:00)
[2022-04-20 10:59] VITALS: O2SAT 95
[2022-04-20] MEDS: TAMSULOSIN 0.4 MG CAP PO SCH (21:00)
[2022-04-20] MEDS: ATORVASTATIN 20 MG TAB PO SCH (21:01)
[2022-04-20] MEDS: MESALAMINE 250 MG CR CAP PO SCH (21:01)
[2022-04-20] MEDS: **NOTE PATIENT COMMENT** MISC XX SCH (21:07)
[2022-04-20 22:00] VITALS: BP 106/45; O2SAT 95
[2022-04-21] MEDS: ACETAMINOPHEN 500 MG TAB PO SCH ×4 (00:13→17:03)
[2022-04-21] MEDS: METOCLOPRAMIDE INJ 10MG/2ML VIAL IV SCH ×4 (04:20→20:19)
[2022-04-21] MEDS: LEVOTHYROXINE 150MCG TABLET (0.15MG) PO SCH (05:59)
[2022-04-21 06:00] VITALS: BP 119/54
[2022-04-21 06:34] LABS: HEMATOCRIT 27.9 % (42.0-52.0); HEMOGLOBIN 8.6 g/dl (13.5-17.5); MEAN CORPUSCULAR HEMOGLOBIN 27.8 pg (27.0-33.0); MEAN CORPUSCULAR HGB CONC 30.8 g/dl (32.0-36.5); MEAN CORPUSCULAR VOLUME 90.3 fl (80.0-96.0); PLATELET COUNT, AUTOMATED 419 10^3/uL (150-450); RED BLOOD COUNT 3.09 10^6/uL (4.30-6.10); WHITE BLOOD COUNT 7.2 10^3/uL (4.0-10.0)
[2022-04-21 06:51] LABS: INR 1.93; PROTHROMBIN TIME 22.4 SECONDS (12.5-14.5)
[2022-04-21 07:06] LABS: BLOOD UREA NITROGEN 13 MG/DL (7-18); CALCIUM LEVEL 8.2 MG/DL (8.8-10.2); CARBON DIOXIDE LEVEL 25 MEQ/L (21-32); CHLORIDE LEVEL 102 MEQ/L (98-107); CREATININE FOR GFR 0.72 MG/DL (0.70-1.30); GLOMERULAR FILTRATION RATE > 60.0 (>42); GLUCOSE, FASTING 79 MG/DL (70-100); POTASSIUM SERUM 3.8 MEQ/L (3.5-5.1); SODIUM LEVEL 133 MEQ/L (136-145)
[2022-04-21] MEDS: LEVALBUTEROL 1.25MG 0.5ML CONCENTRATE NEB INH SCH ×3 (07:17→21:09)
[2022-04-21] MEDS: SODIUM CHLORIDE HYPERTONIC 3% 15ML NEB SOL INH SCH ×3 (07:18→21:09)
[2022-04-21] MEDS: AMIODARONE 200 MG TAB (PACERONE) PO SCH ×2 (09:00→20:20)
[2022-04-21] MEDS: PANTOPRAZOLE 40MG TAB (PROTONIX) PO SCH (09:00)
[2022-04-21] MEDS: METOPROLOL SUCC *XL* 12.5MG PER 1/2 TAB (TopROL *XL*) PO SCH (09:00)
[2022-04-21] MEDS: TOLVAPTAN 7.5 MG HALF-TAB PO SCH (09:56)
[2022-04-21] MEDS: oxyCODONE 5MG TAB PO PRN ×2 (09:57→20:23)
[2022-04-21] MEDS: GABAPENTIN 100 MG CAP PO SCH (09:57)
[2022-04-21] MEDS: ASPIRIN 81MG ENTERIC TABLET PO SCH (09:58)
[2022-04-21] MEDS: ESCITALOPRAM OXALATE 5MG TABLET (LEXAPRO) PO SCH (09:58)
[2022-04-21] MEDS: BACLOFEN 10 MG TAB PO SCH ×3 (09:58→20:21)
[2022-04-21] MEDS: FERROUS SULFATE 325MG TAB PO SCH (09:58)
[2022-04-21] MEDS: LIDOCAINE 5% (LIDODERM) PATCH TD SCH (09:58)
[2022-04-21] MEDS: LACTOBACILLUS ACIDOPHILUS CAP (BACID) PO SCH ×2 (09:58→17:03)
[2022-04-21] MEDS: ENOXAPARIN 60MG/0.6ML SYRINGE (J1650 PER 10MG) SC SCH ×2 (09:59→20:20)
[2022-04-21] MEDS ORDERED: SENNA 8.6 MG TAB (SENOKOT) PO PRN (12:00)
[2022-04-21] MEDS ORDERED: MOM 30ML SUSPENSION UDC PO PRN (12:00)
[2022-04-21] MEDS: IBUPROFEN 600MG TAB PO SCH ×2 (12:22→17:03)
[2022-04-21] MEDS: METAMUCIL (PSYLLIUM) PACKET PO SCH (13:21)
[2022-04-21] MEDS: MIRALAX *UNIT DOSE* 17GM PACKET PO SCH (13:21)
[2022-04-21] MEDS: fentaNYL 50 MCG/HR PATCH TOP SCH (13:36)
[2022-04-21] MEDS: FENTANYL REMOVAL DOCUMENTATION MISC XX SCH (13:38)
[2022-04-21] MEDS: guaiFENesin SYRUP 200MG 10ML UDC PO PRN (20:18)
[2022-04-21] MEDS: MESALAMINE 250 MG CR CAP PO SCH (20:20)
[2022-04-21] MEDS: GABAPENTIN 300 MG CAP PO SCH (20:20)
[2022-04-21] MEDS: ATORVASTATIN 20 MG TAB PO SCH (20:21)
[2022-04-21] MEDS: TAMSULOSIN 0.4 MG CAP PO SCH (20:26)
[2022-04-21] MEDS: **NOTE PATIENT COMMENT** MISC XX SCH (20:26)
[2022-04-22] MEDS: LEVALBUTEROL 1.25MG 0.5ML CONCENTRATE NEB INH SCH ×4 (01:28→20:01)
[2022-04-22] MEDS: SODIUM CHLORIDE HYPERTONIC 3% 15ML NEB SOL INH SCH ×4 (01:28→20:01)
[2022-04-22 01:30] VITALS: O2SAT 92
[2022-04-22] MEDS: IBUPROFEN 600MG TAB PO SCH ×5 (01:55→22:44)
[2022-04-22] MEDS: ACETAMINOPHEN 500 MG TAB PO SCH ×5 (01:56→22:44)
[2022-04-22] MEDS: METOCLOPRAMIDE INJ 10MG/2ML VIAL IV SCH (05:33)
[2022-04-22] MEDS: LEVOTHYROXINE 150MCG TABLET (0.15MG) PO SCH (05:37)
[2022-04-22 06:00] VITALS: BP 127/52
[2022-04-22] MEDS: TOLVAPTAN 7.5 MG HALF-TAB PO SCH (08:19)
[2022-04-22] MEDS: ESCITALOPRAM OXALATE 5MG TABLET (LEXAPRO) PO SCH (08:19)
[2022-04-22] MEDS: AMIODARONE 200 MG TAB (PACERONE) PO SCH ×2 (08:19→21:00)
[2022-04-22] MEDS: BACLOFEN 10 MG TAB PO SCH ×3 (08:20→21:00)
[2022-04-22] MEDS: METOCLOPRAMIDE 10MG TAB PO PRN ×3 (08:20→21:58)
[2022-04-22] MEDS: LACTOBACILLUS ACIDOPHILUS CAP (BACID) PO SCH ×2 (08:20→18:18)
[2022-04-22] MEDS: GABAPENTIN 300 MG CAP PO SCH ×2 (08:20→21:00)
[2022-04-22] MEDS: ENOXAPARIN 60MG/0.6ML SYRINGE (J1650 PER 10MG) SC SCH ×2 (08:21→21:00)
[2022-04-22] MEDS: LIDOCAINE 5% (LIDODERM) PATCH TD SCH ×2 (08:21→09:00)
[2022-04-22] MEDS: guaiFENesin SYRUP 200MG 10ML UDC PO PRN (08:22)
[2022-04-22] MEDS: METAMUCIL (PSYLLIUM) PACKET PO SCH (09:00)
[2022-04-22] MEDS ORDERED: PANTOPRAZOLE 40MG VIAL IV SCH (09:00)
[2022-04-22] MEDS: MIRALAX *UNIT DOSE* 17GM PACKET PO SCH (09:00)
[2022-04-22] MEDS: oxyCODONE 5MG TAB PO PRN ×3 (10:40→23:24)
[2022-04-22] MEDS ORDERED: OMEPRAZOLE SUSPENSION 20MG 10ML ORAL SYRINGE GT SCH (11:00)
[2022-04-22] MEDS: METOPROLOL TART 12.5 MG PER 1/2 TAB PO SCH (12:32)
[2022-04-22] MEDS: FERROUS SULFATE 300MG/5ML UDC LIQUID PO SCH ×2 (14:43→14:56)
[2022-04-22] MEDS: OMEPRAZOLE 20MG CAP PO SCH (14:47)
[2022-04-22] MEDS: **NOTE PATIENT COMMENT** MISC XX SCH (21:00)
[2022-04-22] MEDS: ATORVASTATIN 20 MG TAB PO SCH (21:00)
[2022-04-22] MEDS: TAMSULOSIN 0.4 MG CAP PO SCH (21:00)
[2022-04-22] MEDS: MESALAMINE 250 MG CR CAP PO SCH (21:00)
[2022-04-23] MEDS: SODIUM CHLORIDE HYPERTONIC 3% 15ML NEB SOL INH SCH ×5 (01:01→23:55)
[2022-04-23] MEDS: LEVALBUTEROL 1.25MG 0.5ML CONCENTRATE NEB INH SCH ×5 (01:01→23:55)
[2022-04-23 05:19] VITALS: BP 112/48
[2022-04-23] MEDS: LEVOTHYROXINE 150MCG TABLET (0.15MG) PO SCH (06:00)
[2022-04-23] MEDS: ACETAMINOPHEN 500 MG TAB PO SCH (06:00)
[2022-04-23] MEDS: IBUPROFEN 600MG TAB PO SCH (06:00)
[2022-04-23] MEDS: LACTOBACILLUS ACIDOPHILUS CAP (BACID) PO SCH ×2 (08:00→18:00)
[2022-04-23] MEDS: ESCITALOPRAM OXALATE 5MG TABLET (LEXAPRO) PO SCH (09:00)
[2022-04-23] MEDS: METAMUCIL (PSYLLIUM) PACKET PO SCH (09:00)
[2022-04-23] MEDS: ASPIRIN 81MG CHEW TABLET PO SCH (09:00)
[2022-04-23] MEDS: BACLOFEN 10 MG TAB PO SCH ×3 (09:00→21:00)
[2022-04-23] MEDS: TOLVAPTAN 7.5 MG HALF-TAB PO SCH (09:00)
[2022-04-23] MEDS ORDERED: OMEPRAZOLE SUSPENSION 20MG 10ML ORAL SYRINGE PO SCH (09:00)
[2022-04-23] MEDS: MORPHINE 15 MG SA TAB PO SCH ×2 (09:00→21:00)
[2022-04-23] MEDS: MIRALAX *UNIT DOSE* 17GM PACKET PO SCH (09:00)
[2022-04-23] MEDS: FERROUS SULFATE 300MG/5ML UDC LIQUID PO SCH (09:00)
[2022-04-23] MEDS: GABAPENTIN 300 MG CAP PO SCH ×3 (09:00→21:00)
[2022-04-23] MEDS: AMIODARONE 200 MG TAB (PACERONE) PO SCH ×2 (09:00→21:00)
[2022-04-23] MEDS: OMEPRAZOLE 20MG CAP PO SCH (09:00)
[2022-04-23] MEDS: METOPROLOL TART 12.5 MG PER 1/2 TAB PO SCH (09:00)
[2022-04-23] MEDS: KETOROLAC 30 MG/ML 1ML VIAL IV SCH ×3 (09:52→19:24)
[2022-04-23] MEDS: METOCLOPRAMIDE INJ 10MG/2ML VIAL IV SCH ×3 (09:52→21:00)
[2022-04-23] MEDS: LIDOCAINE 5% (LIDODERM) PATCH TD SCH (11:08)
[2022-04-23] MEDS: ENOXAPARIN 60MG/0.6ML SYRINGE (J1650 PER 10MG) SC SCH ×2 (11:09→21:00)
[2022-04-23] MEDS: ACETAMINOPHEN 1000MG 100ML IV BAG IV SCH ×3 (13:21→23:43)
[2022-04-23] MEDS: **NOTE PATIENT COMMENT** MISC XX SCH (21:00)
[2022-04-23] MEDS: ATORVASTATIN 20 MG TAB PO SCH (21:00)
[2022-04-23] MEDS: TAMSULOSIN 0.4 MG CAP PO SCH (21:00)
[2022-04-23] MEDS: MESALAMINE 250 MG CR CAP PO SCH (21:00)
[2022-04-23] MEDS ORDERED: ONDANSETRON 4MG 2ML VIAL IV PRN (23:20)
[2022-04-23] MEDS ORDERED: PROMETHAZINE 25MG/ML 1ML VIAL IV PRN (23:55)
[2022-04-24] MEDS ORDERED: PROMETHAZINE 25MG SUPP PR PRN (01:05)
[2022-04-24] MEDS ORDERED: LORazepam 2 MG/ML VIAL IV ONE (01:25)
[2022-04-24] MEDS: KETOROLAC 30 MG/ML 1ML VIAL IV SCH ×4 (02:29→20:06)
[2022-04-24] MEDS: METOCLOPRAMIDE INJ 10MG/2ML VIAL IV SCH ×4 (04:55→22:14)
[2022-04-24] MEDS: ACETAMINOPHEN 1000MG 100ML IV BAG IV SCH (04:56)
[2022-04-24] MEDS: LEVOTHYROXINE 150MCG TABLET (0.15MG) PO SCH (06:00)
[2022-04-24 06:36] VITALS: BP 121/51
[2022-04-24] MEDS: FERROUS SULFATE 300MG/5ML UDC LIQUID PO SCH (07:50)
[2022-04-24] MEDS: ASPIRIN 81MG CHEW TABLET PO SCH (07:50)
[2022-04-24] MEDS: LACTOBACILLUS ACIDOPHILUS CAP (BACID) PO SCH ×2 (07:50→17:10)
[2022-04-24] MEDS: SODIUM CHLORIDE HYPERTONIC 3% 15ML NEB SOL INH SCH ×3 (07:50→19:36)
[2022-04-24] MEDS: LEVALBUTEROL 1.25MG 0.5ML CONCENTRATE NEB INH SCH ×3 (07:50→19:35)
[2022-04-24] MEDS: MIRALAX *UNIT DOSE* 17GM PACKET PO SCH (07:51)
[2022-04-24] MEDS: METAMUCIL (PSYLLIUM) PACKET PO SCH (07:51)
[2022-04-24] MEDS: ESCITALOPRAM OXALATE 5MG TABLET (LEXAPRO) PO SCH (07:51)
[2022-04-24] MEDS: BACLOFEN 10 MG TAB PO SCH ×3 (07:51→20:15)
[2022-04-24] MEDS: METOPROLOL TART 12.5 MG PER 1/2 TAB PO SCH (07:51)
[2022-04-24] MEDS: OMEPRAZOLE 20MG CAP PO SCH (07:52)
[2022-04-24] MEDS: MORPHINE 15 MG SA TAB PO SCH (07:52)
[2022-04-24] MEDS: GABAPENTIN 300 MG CAP PO SCH ×3 (07:52→20:16)
[2022-04-24] MEDS: TOLVAPTAN 7.5 MG HALF-TAB PO SCH (07:52)
[2022-04-24] MEDS: AMIODARONE 200 MG TAB (PACERONE) PO SCH ×2 (07:52→20:16)
[2022-04-24] MEDS: LIDOCAINE 5% (LIDODERM) PATCH TD SCH (09:14)
[2022-04-24] MEDS: ENOXAPARIN 60MG/0.6ML SYRINGE (J1650 PER 10MG) SC SCH ×2 (09:14→20:45)
[2022-04-24] MEDS: fentaNYL 50 MCG/HR PATCH TOP SCH (13:46)
[2022-04-24] MEDS: FENTANYL REMOVAL DOCUMENTATION MISC XX SCH (13:47)
[2022-04-24] MEDS: ACETAMINOPHEN 650MG SUPP PR SCH ×3 (13:48→23:09)
[2022-04-24 15:34] VITALS: BP 105/52
[2022-04-24] MEDS: MORPHINE SULFATE ORAL SOLN 10 MG/5 ML UD SL SCH ×2 (17:13→22:13)
[2022-04-24] MEDS: LEVOTHYROXINE 100MCG (0.1MG) 5ML SDV PF (SOLUTION FORM) IV SCH (17:13)
[2022-04-24] MEDS: PANTOPRAZOLE 40MG VIAL IV SCH (17:14)
[2022-04-24] MEDS: SCOPOLAMINE 1MG TRANSDERMAL PATCH TOP SCH (17:14)
[2022-04-24] MEDS: ATORVASTATIN 20 MG TAB PO SCH (20:15)
[2022-04-24] MEDS: TAMSULOSIN 0.4 MG CAP PO SCH (20:15)
[2022-04-24] MEDS: MESALAMINE 250 MG CR CAP PO SCH (20:16)
[2022-04-24] MEDS: **NOTE PATIENT COMMENT** MISC XX SCH (20:45)
[2022-04-24 21:26] VITALS: O2SAT 98
[2022-04-25] MEDS: SODIUM CHLORIDE HYPERTONIC 3% 15ML NEB SOL INH SCH ×4 (02:00→21:15)
[2022-04-25] MEDS: LEVALBUTEROL 1.25MG 0.5ML CONCENTRATE NEB INH SCH ×4 (02:00→21:15)
[2022-04-25] MEDS: KETOROLAC 30 MG/ML 1ML VIAL IV SCH ×4 (02:14→20:22)
[2022-04-25] MEDS: METOCLOPRAMIDE INJ 10MG/2ML VIAL IV SCH ×4 (03:45→22:20)
[2022-04-25 05:31] VITALS: BP 118/64
[2022-04-25] MEDS: ACETAMINOPHEN 650MG SUPP PR SCH ×3 (05:43→17:44)
[2022-04-25] MEDS: MORPHINE SULFATE ORAL SOLN 10 MG/5 ML UD SL SCH ×3 (05:48→22:19)
[2022-04-25 09:00] VITALS: O2SAT 96
[2022-04-25] MEDS: METOPROLOL TART 12.5 MG PER 1/2 TAB PO SCH (09:00)
[2022-04-25] MEDS: GABAPENTIN 300 MG CAP PO SCH ×3 (09:00→20:38)
[2022-04-25] MEDS: FERROUS SULFATE 300MG/5ML UDC LIQUID PO SCH (09:00)
[2022-04-25] MEDS: AMIODARONE 200 MG TAB (PACERONE) PO SCH ×2 (09:00→20:38)
[2022-04-25] MEDS: MIRALAX *UNIT DOSE* 17GM PACKET PO SCH (09:00)
[2022-04-25] MEDS: TOLVAPTAN 7.5 MG HALF-TAB PO SCH (09:00)
[2022-04-25] MEDS: ASPIRIN 81MG CHEW TABLET PO SCH (09:00)
[2022-04-25] MEDS: ESCITALOPRAM OXALATE 5MG TABLET (LEXAPRO) PO SCH (09:00)
[2022-04-25] MEDS: METAMUCIL (PSYLLIUM) PACKET PO SCH (09:00)
[2022-04-25] MEDS: BACLOFEN 10 MG TAB PO SCH ×3 (09:00→20:38)
[2022-04-25] MEDS: ENOXAPARIN 60MG/0.6ML SYRINGE (J1650 PER 10MG) SC SCH ×2 (09:09→20:21)
[2022-04-25] MEDS: LEVOTHYROXINE 100MCG (0.1MG) 5ML SDV PF (SOLUTION FORM) IV SCH (09:09)
[2022-04-25] MEDS: LIDOCAINE 5% (LIDODERM) PATCH TD SCH (09:11)
[2022-04-25] MEDS: LACTOBACILLUS ACIDOPHILUS CAP (BACID) PO SCH ×2 (09:26→17:41)
[2022-04-25] MEDS: oxyCODONE 5MG TAB PO PRN (16:20)
[2022-04-25] MEDS: PANTOPRAZOLE 40MG VIAL IV SCH (17:46)
[2022-04-25] MEDS: **NOTE PATIENT COMMENT** MISC XX SCH (20:22)
[2022-04-25] MEDS: MESALAMINE 250 MG CR CAP PO SCH (20:33)
[2022-04-25] MEDS: TAMSULOSIN 0.4 MG CAP PO SCH (20:33)
[2022-04-25] MEDS: ATORVASTATIN 20 MG TAB PO SCH (20:38)
[2022-04-25 22:00] VITALS: O2SAT 94
[2022-04-26] MEDS: LEVALBUTEROL 1.25MG 0.5ML CONCENTRATE NEB INH SCH ×4 (02:00→21:34)
[2022-04-26] MEDS: SODIUM CHLORIDE HYPERTONIC 3% 15ML NEB SOL INH SCH ×4 (02:00→21:35)
[2022-04-26] MEDS: KETOROLAC 30 MG/ML 1ML VIAL IV SCH ×4 (02:35→20:48)
[2022-04-26] MEDS: METOCLOPRAMIDE INJ 10MG/2ML VIAL IV SCH ×4 (04:07→20:48)
[2022-04-26 06:00] VITALS: BP 121/59
[2022-04-26] MEDS: ACETAMINOPHEN 650MG SUPP PR SCH ×4 (06:00→16:58)
[2022-04-26] MEDS: MORPHINE SULFATE ORAL SOLN 10 MG/5 ML UD SL SCH ×3 (06:01→21:19)
[2022-04-26] MEDS: LACTOBACILLUS ACIDOPHILUS CAP (BACID) PO SCH ×2 (08:00→16:57)
[2022-04-26 08:03] VITALS: BP 96/42
[2022-04-26] MEDS: METOPROLOL TART 12.5 MG PER 1/2 TAB PO SCH (08:04)
[2022-04-26] MEDS: AMIODARONE 200 MG TAB (PACERONE) PO SCH ×2 (08:05→20:59)
[2022-04-26] MEDS: ASPIRIN 81MG CHEW TABLET PO SCH (08:06)
[2022-04-26] MEDS: ESCITALOPRAM OXALATE 5MG TABLET (LEXAPRO) PO SCH (08:07)
[2022-04-26] MEDS: FERROUS SULFATE 300MG/5ML UDC LIQUID PO SCH (08:07)
[2022-04-26] MEDS: METAMUCIL (PSYLLIUM) PACKET PO SCH (08:09)
[2022-04-26] MEDS: MIRALAX *UNIT DOSE* 17GM PACKET PO SCH (08:10)
[2022-04-26] MEDS: TOLVAPTAN 7.5 MG HALF-TAB PO SCH (08:11)
[2022-04-26] MEDS: LEVOTHYROXINE 100MCG (0.1MG) 5ML SDV PF (SOLUTION FORM) IV SCH (08:12)
[2022-04-26] MEDS: GABAPENTIN 300 MG CAP PO SCH ×3 (08:26→20:55)
[2022-04-26] MEDS: ENOXAPARIN 60MG/0.6ML SYRINGE (J1650 PER 10MG) SC SCH ×2 (08:26→20:50)
[2022-04-26] MEDS: BACLOFEN 10 MG TAB PO SCH ×3 (08:26→20:54)
[2022-04-26] MEDS: LIDOCAINE 5% (LIDODERM) PATCH TD SCH (08:26)
[2022-04-26] MEDS: PANTOPRAZOLE 40MG VIAL IV SCH (16:57)
[2022-04-26] MEDS: **NOTE PATIENT COMMENT** MISC XX SCH (20:50)
[2022-04-26] MEDS: TAMSULOSIN 0.4 MG CAP PO SCH (20:54)
[2022-04-26] MEDS: ATORVASTATIN 20 MG TAB PO SCH (20:55)
[2022-04-26] MEDS: MESALAMINE 250 MG CR CAP PO SCH (21:00)
[2022-04-27] MEDS: SODIUM CHLORIDE HYPERTONIC 3% 15ML NEB SOL INH SCH ×4 (02:00→20:17)
[2022-04-27] MEDS: LEVALBUTEROL 1.25MG 0.5ML CONCENTRATE NEB INH SCH ×4 (02:00→20:16)
[2022-04-27] MEDS: KETOROLAC 30 MG/ML 1ML VIAL IV SCH ×4 (02:56→21:40)
[2022-04-27] MEDS: METOCLOPRAMIDE INJ 10MG/2ML VIAL IV SCH ×4 (02:56→21:39)
[2022-04-27] MEDS: ACETAMINOPHEN 650MG SUPP PR SCH ×5 (05:16→23:08)
[2022-04-27 05:52] VITALS: BP 108/52
[2022-04-27] MEDS: MORPHINE SULFATE ORAL SOLN 10 MG/5 ML UD SL SCH ×3 (06:23→21:39)
[2022-04-27] MEDS: MIRALAX *UNIT DOSE* 17GM PACKET PO SCH (09:00)
[2022-04-27] MEDS: METOPROLOL TART 12.5 MG PER 1/2 TAB PO SCH (09:00)
[2022-04-27] MEDS: AMIODARONE 200 MG TAB (PACERONE) PO SCH ×2 (09:00→21:00)
[2022-04-27] MEDS: METAMUCIL (PSYLLIUM) PACKET PO SCH (09:00)
[2022-04-27] MEDS: ENOXAPARIN 60MG/0.6ML SYRINGE (J1650 PER 10MG) SC SCH ×2 (09:36→21:38)
[2022-04-27] MEDS: LACTOBACILLUS ACIDOPHILUS CAP (BACID) PO SCH ×2 (09:36→17:45)
[2022-04-27] MEDS: LIDOCAINE 5% (LIDODERM) PATCH TD SCH (09:36)
[2022-04-27] MEDS: GABAPENTIN 300 MG CAP PO SCH ×3 (09:37→21:37)
[2022-04-27] MEDS: ASPIRIN 81MG CHEW TABLET PO SCH (09:37)
[2022-04-27] MEDS: FERROUS SULFATE 300MG/5ML UDC LIQUID PO SCH (09:37)
[2022-04-27] MEDS: TOLVAPTAN 7.5 MG HALF-TAB PO SCH (09:37)
[2022-04-27] MEDS: BACLOFEN 10 MG TAB PO SCH ×3 (09:37→21:37)
[2022-04-27] MEDS: ESCITALOPRAM OXALATE 5MG TABLET (LEXAPRO) PO SCH (09:38)
[2022-04-27] MEDS: LEVOTHYROXINE 100MCG (0.1MG) 5ML SDV PF (SOLUTION FORM) IV SCH (13:29)
[2022-04-27] MEDS: FENTANYL REMOVAL DOCUMENTATION MISC XX SCH (13:29)
[2022-04-27] MEDS: fentaNYL 50 MCG/HR PATCH TOP SCH (13:30)
[2022-04-27] MEDS: SCOPOLAMINE 1MG TRANSDERMAL PATCH TOP SCH (17:45)
[2022-04-27] MEDS: PANTOPRAZOLE 40MG VIAL IV SCH (17:45)
[2022-04-27] MEDS: MESALAMINE 250 MG CR CAP PO SCH (21:37)
[2022-04-27] MEDS: TAMSULOSIN 0.4 MG CAP PO SCH (21:37)
[2022-04-27] MEDS: ATORVASTATIN 20 MG TAB PO SCH (21:37)
[2022-04-27] MEDS: **NOTE PATIENT COMMENT** MISC XX SCH (21:38)
[2022-04-27 22:00] VITALS: BP 100/51
[2022-04-28] MEDS: LEVALBUTEROL 1.25MG 0.5ML CONCENTRATE NEB INH SCH ×4 (02:00→19:23)
[2022-04-28] MEDS: SODIUM CHLORIDE HYPERTONIC 3% 15ML NEB SOL INH SCH ×4 (02:00→19:23)
[2022-04-28] MEDS: KETOROLAC 30 MG/ML 1ML VIAL IV SCH (03:26)
[2022-04-28] MEDS: METOCLOPRAMIDE INJ 10MG/2ML VIAL IV SCH ×4 (03:26→21:21)
[2022-04-28 06:00] VITALS: BP 103/52
[2022-04-28] MEDS: ACETAMINOPHEN 650MG SUPP PR SCH ×3 (06:00→17:41)
[2022-04-28 06:17] LABS: HEMATOCRIT 26.5 % (42.0-52.0); HEMOGLOBIN 8.4 g/dl (13.5-17.5); MEAN CORPUSCULAR HEMOGLOBIN 27.7 pg (27.0-33.0); MEAN CORPUSCULAR HGB CONC 31.7 g/dl (32.0-36.5); MEAN CORPUSCULAR VOLUME 87.5 fl (80.0-96.0); PLATELET COUNT, AUTOMATED 525 10^3/uL (150-450); RED BLOOD COUNT 3.03 10^6/uL (4.30-6.10); WHITE BLOOD COUNT 7.1 10^3/uL (4.0-10.0)
[2022-04-28] MEDS: MORPHINE SULFATE ORAL SOLN 10 MG/5 ML UD SL SCH ×3 (06:19→21:17)
[2022-04-28 06:55] LABS: BLOOD UREA NITROGEN 16 MG/DL (7-18); CALCIUM LEVEL 8.5 MG/DL (8.8-10.2); CARBON DIOXIDE LEVEL 26 MEQ/L (21-32); CHLORIDE LEVEL 102 MEQ/L (98-107); CREATININE FOR GFR 0.78 MG/DL (0.70-1.30); GLOMERULAR FILTRATION RATE > 60.0 (>42); GLUCOSE, FASTING 108 MG/DL (70-100); POTASSIUM SERUM 5.3 MEQ/L (3.5-5.1); SODIUM LEVEL 133 MEQ/L (136-145)
[2022-04-28] MEDS: ESCITALOPRAM OXALATE 5MG TABLET (LEXAPRO) PO SCH (10:11)
[2022-04-28] MEDS: ASPIRIN 81MG CHEW TABLET PO SCH (10:11)
[2022-04-28] MEDS: BACLOFEN 10 MG TAB PO SCH ×3 (10:12→21:20)
[2022-04-28] MEDS: TOLVAPTAN 7.5 MG HALF-TAB PO SCH (10:12)
[2022-04-28] MEDS: ENOXAPARIN 60MG/0.6ML SYRINGE (J1650 PER 10MG) SC SCH ×2 (10:12→21:21)
[2022-04-28] MEDS: FERROUS SULFATE 300MG/5ML UDC LIQUID PO SCH (10:12)
[2022-04-28] MEDS: GABAPENTIN 300 MG CAP PO SCH ×3 (10:12→21:19)
[2022-04-28] MEDS: LIDOCAINE 5% (LIDODERM) PATCH TD SCH (10:13)
[2022-04-28] MEDS: oxyCODONE 5MG TAB PO PRN (10:20)
[2022-04-28] MEDS: LACTOBACILLUS ACIDOPHILUS CAP (BACID) PO SCH ×2 (10:21→17:40)
[2022-04-28] MEDS: MIRALAX *UNIT DOSE* 17GM PACKET PO SCH (10:21)
[2022-04-28] MEDS: METAMUCIL (PSYLLIUM) PACKET PO SCH (10:21)
[2022-04-28] MEDS: METOPROLOL TART 12.5 MG PER 1/2 TAB PO SCH (10:21)
[2022-04-28] MEDS: AMIODARONE 200 MG TAB (PACERONE) PO SCH ×2 (10:22→20:39)
[2022-04-28] MEDS: LEVOTHYROXINE 100MCG (0.1MG) 5ML SDV PF (SOLUTION FORM) IV SCH (13:46)
[2022-04-28 14:00] VITALS: BP 110/69
[2022-04-28] MEDS: PANTOPRAZOLE 40MG VIAL IV SCH (17:40)
[2022-04-28 20:00] VITALS: BP 106/52
[2022-04-28] MEDS: MESALAMINE 250 MG CR CAP PO SCH (21:18)
[2022-04-28] MEDS: ATORVASTATIN 20 MG TAB PO SCH (21:19)
[2022-04-28] MEDS: TAMSULOSIN 0.4 MG CAP PO SCH (21:20)
[2022-04-28] MEDS: **NOTE PATIENT COMMENT** MISC XX SCH (21:21)
[2022-04-29] MEDS: SODIUM CHLORIDE HYPERTONIC 3% 15ML NEB SOL INH SCH ×4 (01:10→19:25)
[2022-04-29] MEDS: LEVALBUTEROL 1.25MG 0.5ML CONCENTRATE NEB INH SCH ×4 (01:10→19:25)
[2022-04-29] MEDS: METOCLOPRAMIDE INJ 10MG/2ML VIAL IV SCH ×4 (05:04→21:32)
[2022-04-29 05:30] VITALS: BP 126/60
[2022-04-29] MEDS: ACETAMINOPHEN 650MG SUPP PR SCH ×5 (06:00→23:02)
[2022-04-29] MEDS: MORPHINE SULFATE ORAL SOLN 10 MG/5 ML UD SL SCH ×3 (06:06→21:33)
[2022-04-29] MEDS: AMIODARONE 200 MG TAB (PACERONE) PO SCH ×2 (07:59→21:00)
[2022-04-29] MEDS: METOPROLOL TART 12.5 MG PER 1/2 TAB PO SCH (08:00)
[2022-04-29] MEDS: MIRALAX *UNIT DOSE* 17GM PACKET PO SCH (08:01)
[2022-04-29] MEDS: METAMUCIL (PSYLLIUM) PACKET PO SCH (08:01)
[2022-04-29] MEDS: TOLVAPTAN 7.5 MG HALF-TAB PO SCH (08:13)
[2022-04-29] MEDS: ENOXAPARIN 60MG/0.6ML SYRINGE (J1650 PER 10MG) SC SCH ×2 (08:13→21:00)
[2022-04-29] MEDS: LIDOCAINE 5% (LIDODERM) PATCH TD SCH (08:13)
[2022-04-29] MEDS: ESCITALOPRAM OXALATE 5MG TABLET (LEXAPRO) PO SCH (08:14)
[2022-04-29] MEDS: LACTOBACILLUS ACIDOPHILUS CAP (BACID) PO SCH ×2 (08:14→17:12)
[2022-04-29] MEDS: ASPIRIN 81MG CHEW TABLET PO SCH (08:14)
[2022-04-29] MEDS: BACLOFEN 10 MG TAB PO SCH ×3 (08:14→21:00)
[2022-04-29] MEDS: GABAPENTIN 300 MG CAP PO SCH ×3 (08:14→21:00)
[2022-04-29] MEDS: FERROUS SULFATE 300MG/5ML UDC LIQUID PO SCH (10:27)
[2022-04-29] MEDS: LEVOTHYROXINE 100MCG (0.1MG) 5ML SDV PF (SOLUTION FORM) IV SCH (13:26)
[2022-04-29 14:00] VITALS: BP 104/47
[2022-04-29] MEDS: PANTOPRAZOLE 40MG VIAL IV SCH (17:12)
[2022-04-29] MEDS: oxyCODONE 5MG TAB PO PRN (17:23)
[2022-04-29 20:48] VITALS: BP 104/47
[2022-04-29] MEDS: TAMSULOSIN 0.4 MG CAP PO SCH (21:00)
[2022-04-29] MEDS: ATORVASTATIN 20 MG TAB PO SCH (21:00)
[2022-04-29] MEDS: MESALAMINE 250 MG CR CAP PO SCH (21:00)
[2022-04-29] MEDS: **NOTE PATIENT COMMENT** MISC XX SCH (21:40)
[2022-04-30] MEDS: SODIUM CHLORIDE HYPERTONIC 3% 15ML NEB SOL INH SCH ×4 (02:53→21:13)
[2022-04-30] MEDS: LEVALBUTEROL 1.25MG 0.5ML CONCENTRATE NEB INH SCH ×4 (02:53→21:13)
[2022-04-30] MEDS: METOCLOPRAMIDE INJ 10MG/2ML VIAL IV SCH ×4 (05:22→20:38)
[2022-04-30] MEDS: MORPHINE SULFATE ORAL SOLN 10 MG/5 ML UD SL SCH ×3 (05:22→20:39)
[2022-04-30] MEDS: ACETAMINOPHEN 650MG SUPP PR SCH ×4 (05:22→23:37)
[2022-04-30 05:34] VITALS: BP 96/40
[2022-04-30 08:33] VITALS: BP 90/38
[2022-04-30] MEDS: METOPROLOL TART 12.5 MG PER 1/2 TAB PO SCH (08:34)
[2022-04-30] MEDS: AMIODARONE 200 MG TAB (PACERONE) PO SCH ×2 (08:35→20:49)
[2022-04-30] MEDS: METAMUCIL (PSYLLIUM) PACKET PO SCH (08:35)
[2022-04-30] MEDS: MIRALAX *UNIT DOSE* 17GM PACKET PO SCH (08:35)
[2022-04-30] MEDS: ENOXAPARIN 60MG/0.6ML SYRINGE (J1650 PER 10MG) SC SCH ×2 (09:23→20:49)
[2022-04-30] MEDS: GABAPENTIN 300 MG CAP PO SCH ×3 (09:24→20:49)
[2022-04-30] MEDS: FERROUS SULFATE 300MG/5ML UDC LIQUID PO SCH (09:24)
[2022-04-30] MEDS: ESCITALOPRAM OXALATE 5MG TABLET (LEXAPRO) PO SCH (09:24)
[2022-04-30] MEDS: LACTOBACILLUS ACIDOPHILUS CAP (BACID) PO SCH ×2 (09:24→17:22)
[2022-04-30] MEDS: ASPIRIN 81MG CHEW TABLET PO SCH (09:24)
[2022-04-30] MEDS: BACLOFEN 10 MG TAB PO SCH ×3 (09:24→20:49)
[2022-04-30] MEDS: TOLVAPTAN 7.5 MG HALF-TAB PO SCH (09:24)
[2022-04-30] MEDS: LIDOCAINE 5% (LIDODERM) PATCH TD SCH (09:25)
[2022-04-30] MEDS: LEVOTHYROXINE 100MCG (0.1MG) 5ML SDV PF (SOLUTION FORM) IV SCH (13:14)
[2022-04-30] MEDS: fentaNYL 50 MCG/HR PATCH TOP SCH (13:15)
[2022-04-30] MEDS: FENTANYL REMOVAL DOCUMENTATION MISC XX SCH (13:19)
[2022-04-30 14:00] VITALS: BP 102/42
[2022-04-30] MEDS: PANTOPRAZOLE 40MG VIAL IV SCH (17:21)
[2022-04-30] MEDS: SCOPOLAMINE 1MG TRANSDERMAL PATCH TOP SCH (17:22)
[2022-04-30] MEDS: MESALAMINE 250 MG CR CAP PO SCH (20:49)
[2022-04-30] MEDS: TAMSULOSIN 0.4 MG CAP PO SCH (20:49)
[2022-04-30] MEDS: ATORVASTATIN 20 MG TAB PO SCH (20:49)
[2022-04-30] MEDS: **NOTE PATIENT COMMENT** MISC XX SCH (20:49)
[2022-04-30 20:55] VITALS: BP 106/42
[2022-05-01] MEDS: SODIUM CHLORIDE HYPERTONIC 3% 15ML NEB SOL INH SCH ×4 (02:00→18:40)
[2022-05-01] MEDS: LEVALBUTEROL 1.25MG 0.5ML CONCENTRATE NEB INH SCH ×4 (02:00→18:40)
[2022-05-01] MEDS: METOCLOPRAMIDE INJ 10MG/2ML VIAL IV SCH ×4 (04:00→21:57)
[2022-05-01] MEDS: MORPHINE SULFATE ORAL SOLN 10 MG/5 ML UD SL SCH ×5 (04:56→21:55)
[2022-05-01] MEDS: ACETAMINOPHEN 650MG SUPP PR SCH ×2 (04:57→12:00)
[2022-05-01 05:50] VITALS: BP 110/46
[2022-05-01 06:07] LABS: HEMATOCRIT 25.9 % (42.0-52.0); HEMOGLOBIN 8.1 g/dl (13.5-17.5); MEAN CORPUSCULAR HGB CONC 31.3 g/dl (32.0-36.5); MEAN CORPUSCULAR VOLUME 89.6 fl (80.0-96.0); PLATELET COUNT, AUTOMATED 510 10^3/uL (150-450); RED BLOOD COUNT 2.89 10^6/uL (4.30-6.10); WHITE BLOOD COUNT 14.9 10^3/uL (4.0-10.0)
[2022-05-01 06:45] LABS: BLOOD UREA NITROGEN 14 MG/DL (7-18); CALCIUM LEVEL 8.6 MG/DL (8.8-10.2); CARBON DIOXIDE LEVEL 27 MEQ/L (21-32); CHLORIDE LEVEL 100 MEQ/L (98-107); CREATININE FOR GFR 0.66 MG/DL (0.70-1.30); GLOMERULAR FILTRATION RATE > 60.0 (>42); GLUCOSE, FASTING 86 MG/DL (70-100); POTASSIUM SERUM 4.5 MEQ/L (3.5-5.1); SODIUM LEVEL 132 MEQ/L (136-145)
[2022-05-01] MEDS: METOPROLOL TART 12.5 MG PER 1/2 TAB PO SCH (08:54)
[2022-05-01] MEDS: AMIODARONE 200 MG TAB (PACERONE) PO SCH ×2 (09:00→21:56)
[2022-05-01] MEDS: METAMUCIL (PSYLLIUM) PACKET PO SCH (09:00)
[2022-05-01] MEDS: MIRALAX *UNIT DOSE* 17GM PACKET PO SCH (09:00)
[2022-05-01] MEDS: ENOXAPARIN 60MG/0.6ML SYRINGE (J1650 PER 10MG) SC SCH ×2 (09:04→21:54)
[2022-05-01] MEDS: FERROUS SULFATE 300MG/5ML UDC LIQUID PO SCH (09:04)
[2022-05-01] MEDS: LACTOBACILLUS ACIDOPHILUS CAP (BACID) PO SCH ×2 (09:04→17:12)
[2022-05-01] MEDS: LIDOCAINE 5% (LIDODERM) PATCH TD SCH (09:04)
[2022-05-01] MEDS: ESCITALOPRAM OXALATE 5MG TABLET (LEXAPRO) PO SCH (09:04)
[2022-05-01] MEDS: ASPIRIN 81MG CHEW TABLET PO SCH (09:04)
[2022-05-01] MEDS: GABAPENTIN 300 MG CAP PO SCH ×3 (09:05→21:55)
[2022-05-01] MEDS: BACLOFEN 10 MG TAB PO SCH ×3 (09:05→21:56)
[2022-05-01] MEDS: TOLVAPTAN 7.5 MG HALF-TAB PO SCH (09:05)
[2022-05-01] MEDS ORDERED: **NOTE PATIENT COMMENT** MISC XX SCH (13:10)
[2022-05-01] MEDS: LEVOTHYROXINE 100MCG (0.1MG) 5ML SDV PF (SOLUTION FORM) IV SCH (13:18)
[2022-05-01] MEDS ORDERED: LIDOCAINE 1% MDV 20ML VIAL As Ordered ONE (13:41)
[2022-05-01 14:00] VITALS: BP 106/53
[2022-05-01] MEDS: PANTOPRAZOLE 40MG VIAL IV SCH (17:13)
[2022-05-01] MEDS: ACETAMINOPHEN 325MG/10.15ML UDC PO SCH (17:14)
[2022-05-01] MEDS: SODIUM CHLORIDE 0.9% INJ 10 ML SYR IV SCH (17:15)
[2022-05-01 20:00] VITALS: BP 109/51
[2022-05-01] MEDS: MESALAMINE 250 MG CR CAP PO SCH (21:55)
[2022-05-01] MEDS: ATORVASTATIN 20 MG TAB PO SCH (21:56)
[2022-05-02] MEDS: LEVALBUTEROL 1.25MG 0.5ML CONCENTRATE NEB INH SCH ×4 (01:39→20:19)
[2022-05-02] MEDS: SODIUM CHLORIDE HYPERTONIC 3% 15ML NEB SOL INH SCH ×4 (01:39→20:19)
[2022-05-02] MEDS: METOCLOPRAMIDE INJ 10MG/2ML VIAL IV SCH ×4 (04:32→22:00)
[2022-05-02] MEDS: SODIUM CHLORIDE 0.9% INJ 10 ML SYR IV PRN (04:33)
[2022-05-02 05:43] VITALS: BP 109/56
[2022-05-02] MEDS: ACETAMINOPHEN 325MG/10.15ML UDC PO SCH ×5 (05:47→22:33)
[2022-05-02] MEDS: MORPHINE SULFATE ORAL SOLN 10 MG/5 ML UD SL SCH ×3 (05:48→22:00)
[2022-05-02] MEDS: SODIUM CHLORIDE 0.9% INJ 10 ML SYR IV SCH ×2 (05:48→17:08)
[2022-05-02 06:45] LABS: HEMATOCRIT 25.1 % (42.0-52.0); HEMOGLOBIN 7.8 g/dl (13.5-17.5); MEAN CORPUSCULAR HEMOGLOBIN 27.6 pg (27.0-33.0); MEAN CORPUSCULAR HGB CONC 31.1 g/dl (32.0-36.5); MEAN CORPUSCULAR VOLUME 88.7 fl (80.0-96.0); PLATELET COUNT, AUTOMATED 480 10^3/uL (150-450); RED BLOOD COUNT 2.83 10^6/uL (4.30-6.10); WHITE BLOOD COUNT 9.3 10^3/uL (4.0-10.0)
[2022-05-02 07:13] LABS: BLOOD UREA NITROGEN 12 MG/DL (7-18); CALCIUM LEVEL 8.7 MG/DL (8.8-10.2); CARBON DIOXIDE LEVEL 27 MEQ/L (21-32); CHLORIDE LEVEL 102 MEQ/L (98-107); GLOMERULAR FILTRATION RATE > 60.0 (>42); GLUCOSE, FASTING 102 MG/DL (70-100); POTASSIUM SERUM 4.6 MEQ/L (3.5-5.1); SODIUM LEVEL 134 MEQ/L (136-145)
[2022-05-02] MEDS: METOPROLOL TART 12.5 MG PER 1/2 TAB PO SCH (09:00)
[2022-05-02] MEDS: AMIODARONE 200 MG TAB (PACERONE) PO SCH ×2 (09:00→21:00)
[2022-05-02] MEDS: MIRALAX *UNIT DOSE* 17GM PACKET PO SCH (09:00)
[2022-05-02] MEDS: ENOXAPARIN 60MG/0.6ML SYRINGE (J1650 PER 10MG) SC SCH ×2 (09:33→21:00)
[2022-05-02] MEDS: ESCITALOPRAM OXALATE 5MG TABLET (LEXAPRO) PO SCH (09:34)
[2022-05-02] MEDS: LACTOBACILLUS ACIDOPHILUS CAP (BACID) PO SCH ×2 (09:34→17:07)
[2022-05-02] MEDS: ASPIRIN 81MG CHEW TABLET PO SCH (09:34)
[2022-05-02] MEDS: BACLOFEN 10 MG TAB PO SCH ×4 (09:35→21:00)
[2022-05-02] MEDS: GABAPENTIN 300 MG CAP PO SCH ×3 (09:35→21:00)
[2022-05-02] MEDS: METAMUCIL (PSYLLIUM) PACKET PO SCH (09:43)
[2022-05-02] MEDS: LIDOCAINE 5% (LIDODERM) PATCH TD SCH ×2 (09:43→22:32)
[2022-05-02] MEDS: TOLVAPTAN 7.5 MG HALF-TAB PO SCH (09:57)
[2022-05-02] MEDS: FERROUS SULFATE 300MG/5ML UDC LIQUID PO SCH (12:50)
[2022-05-02] MEDS: LEVOTHYROXINE 100MCG (0.1MG) 5ML SDV PF (SOLUTION FORM) IV SCH (12:51)
[2022-05-02 14:00] VITALS: BP 93/53
[2022-05-02 14:45] VITALS: BP 108/52
[2022-05-02] MEDS: PANTOPRAZOLE 40MG VIAL IV SCH (17:07)
[2022-05-02] MEDS: ATORVASTATIN 20 MG TAB PO SCH (21:00)
[2022-05-02] MEDS: MESALAMINE 250 MG CR CAP PO SCH (21:00)
[2022-05-03] MEDS: LEVALBUTEROL 1.25MG 0.5ML CONCENTRATE NEB INH SCH ×4 (02:48→20:15)
[2022-05-03] MEDS: SODIUM CHLORIDE HYPERTONIC 3% 15ML NEB SOL INH SCH ×4 (02:48→20:15)
[2022-05-03] MEDS: METOCLOPRAMIDE INJ 10MG/2ML VIAL IV SCH ×4 (03:00→21:39)
[2022-05-03] MEDS: ACETAMINOPHEN 325MG/10.15ML UDC PO SCH ×3 (05:50→17:31)
[2022-05-03] MEDS: MORPHINE SULFATE ORAL SOLN 10 MG/5 ML UD SL SCH ×2 (05:51→13:01)
[2022-05-03] MEDS: SODIUM CHLORIDE 0.9% INJ 10 ML SYR IV SCH ×2 (05:52→17:29)
[2022-05-03 06:00] VITALS: BP 143/53
[2022-05-03 06:26] LABS: HEMATOCRIT 27.6 % (42.0-52.0); HEMOGLOBIN 8.4 g/dl (13.5-17.5); MEAN CORPUSCULAR HEMOGLOBIN 27.4 pg (27.0-33.0); MEAN CORPUSCULAR HGB CONC 30.4 g/dl (32.0-36.5); MEAN CORPUSCULAR VOLUME 89.9 fl (80.0-96.0); PLATELET COUNT, AUTOMATED 503 10^3/uL (150-450); RED BLOOD COUNT 3.07 10^6/uL (4.30-6.10); WHITE BLOOD COUNT 11.4 10^3/uL (4.0-10.0)
[2022-05-03 06:59] LABS: BLOOD UREA NITROGEN 13 MG/DL (7-18); CALCIUM LEVEL 9.1 MG/DL (8.8-10.2); CARBON DIOXIDE LEVEL 27 MEQ/L (21-32); CHLORIDE LEVEL 99 MEQ/L (98-107); CREATININE FOR GFR 0.67 MG/DL (0.70-1.30); GLOMERULAR FILTRATION RATE > 60.0 (>42); GLUCOSE, FASTING 88 MG/DL (70-100); POTASSIUM SERUM 4.5 MEQ/L (3.5-5.1); SODIUM LEVEL 132 MEQ/L (136-145)
[2022-05-03] MEDS: MIRALAX *UNIT DOSE* 17GM PACKET PO SCH (09:00)
[2022-05-03 09:26] LABS: INR 0.97; PROTHROMBIN TIME 13.1 SECONDS (12.5-14.5)
[2022-05-03] MEDS: TOLVAPTAN 7.5 MG HALF-TAB PO SCH (09:53)
[2022-05-03] MEDS: ENOXAPARIN 60MG/0.6ML SYRINGE (J1650 PER 10MG) SC SCH ×2 (09:59→21:00)
[2022-05-03] MEDS: ESCITALOPRAM OXALATE 5MG TABLET (LEXAPRO) PO SCH (10:00)
[2022-05-03] MEDS: AMIODARONE 200 MG TAB (PACERONE) PO SCH ×2 (10:00→21:00)
[2022-05-03] MEDS: LACTOBACILLUS ACIDOPHILUS CAP (BACID) PO SCH ×2 (10:04→17:27)
[2022-05-03] MEDS: ASPIRIN 81MG CHEW TABLET PO SCH (10:04)
[2022-05-03] MEDS: FERROUS SULFATE 300MG/5ML UDC LIQUID PO SCH (10:05)
[2022-05-03] MEDS: METOPROLOL TART 12.5 MG PER 1/2 TAB PO SCH (10:05)
[2022-05-03] MEDS: BACLOFEN 10 MG TAB PO SCH ×3 (10:05→21:00)
[2022-05-03] MEDS: METAMUCIL (PSYLLIUM) PACKET PO SCH (10:06)
[2022-05-03] MEDS: GABAPENTIN 300 MG CAP PO SCH ×3 (10:06→21:00)
[2022-05-03] MEDS: fentaNYL 50 MCG/HR PATCH TOP SCH (12:59)
[2022-05-03] MEDS: LEVOTHYROXINE 100MCG (0.1MG) 5ML SDV PF (SOLUTION FORM) IV SCH (13:02)
[2022-05-03 17:16] LABS: ALBUMIN 2.2 GM/DL (3.2-5.2); ALKALINE PHOSPHATASE 213 U/L (45-117); ALT/SGPT 22 U/L (12-78); AST/SGOT 11 U/L (7-37); BILIRUBIN,DIRECT 0.2 MG/DL (0.0-0.2); BILIRUBIN,TOTAL 0.3 MG/DL (0.2-1.0); TOTAL PROTEIN 5.6 GM/DL (6.4-8.2)
[2022-05-03] MEDS: PANTOPRAZOLE 40MG TAB (PROTONIX) PO SCH (17:27)
[2022-05-03] MEDS: SCOPOLAMINE 1MG TRANSDERMAL PATCH TOP SCH (17:28)
[2022-05-03] MEDS ORDERED: MORPHINE 15 MG SA TAB PO SCH (21:00)
[2022-05-03] MEDS ORDERED: MORPHINE 10MG/0.5ML ORAL CONCENTRATE SOLUTION U/D SL PRN (21:00)
[2022-05-03] MEDS: MESALAMINE 250 MG CR CAP PO SCH (21:00)
[2022-05-03] MEDS: ATORVASTATIN 20 MG TAB PO SCH (21:00)
[2022-05-03 22:00] VITALS: BP 137/48
[2022-05-04] MEDS: LEVALBUTEROL 1.25MG 0.5ML CONCENTRATE NEB INH SCH ×4 (02:00→19:49)
[2022-05-04] MEDS: SODIUM CHLORIDE HYPERTONIC 3% 15ML NEB SOL INH SCH ×4 (02:00→19:49)
[2022-05-04] MEDS: METOCLOPRAMIDE INJ 10MG/2ML VIAL IV SCH (05:14)
[2022-05-04] MEDS: ACETAMINOPHEN 325MG/10.15ML UDC PO SCH ×4 (05:52→17:11)
[2022-05-04 06:00] VITALS: BP 145/57
[2022-05-04 06:33] LABS: HEMATOCRIT 28.1 % (42.0-52.0); HEMOGLOBIN 8.7 g/dl (13.5-17.5); MEAN CORPUSCULAR HEMOGLOBIN 27.4 pg (27.0-33.0); MEAN CORPUSCULAR VOLUME 88.4 fl (80.0-96.0); PLATELET COUNT, AUTOMATED 469 10^3/uL (150-450); RED BLOOD COUNT 3.18 10^6/uL (4.30-6.10); WHITE BLOOD COUNT 8.3 10^3/uL (4.0-10.0)
[2022-05-04] MEDS: SODIUM CHLORIDE 0.9% INJ 10 ML SYR IV SCH ×2 (06:33→17:11)
[2022-05-04] MEDS ORDERED: METOCLOPRAMIDE 10MG TAB PO SCH (07:10)
[2022-05-04 07:11] LABS: ALBUMIN 2.2 GM/DL (3.2-5.2); ALKALINE PHOSPHATASE 197 U/L (45-117); ALT/SGPT 21 U/L (12-78); AST/SGOT 17 U/L (7-37); BILIRUBIN,DIRECT 0.2 MG/DL (0.0-0.2); BILIRUBIN,TOTAL 0.5 MG/DL (0.2-1.0); BLOOD UREA NITROGEN 13 MG/DL (7-18); CALCIUM LEVEL 8.8 MG/DL (8.8-10.2); CARBON DIOXIDE LEVEL 26 MEQ/L (21-32); CHLORIDE LEVEL 100 MEQ/L (98-107); CREATININE FOR GFR 0.59 MG/DL (0.70-1.30); GLOMERULAR FILTRATION RATE > 60.0 (>42); GLUCOSE, FASTING 74 MG/DL (70-100); POTASSIUM SERUM 5.1 MEQ/L (3.5-5.1); SODIUM LEVEL 133 MEQ/L (136-145); TOTAL PROTEIN 5.4 GM/DL (6.4-8.2)
[2022-05-04] MEDS: LACTOBACILLUS ACIDOPHILUS CAP (BACID) PO SCH ×2 (08:00→17:11)
[2022-05-04] MEDS: ASPIRIN 81MG CHEW TABLET PO SCH (08:24)
[2022-05-04] MEDS: ESCITALOPRAM OXALATE 5MG TABLET (LEXAPRO) PO SCH (08:24)
[2022-05-04] MEDS: BACLOFEN 10 MG TAB PO SCH ×4 (08:27→21:57)
[2022-05-04] MEDS: MIRALAX *UNIT DOSE* 17GM PACKET PO SCH (08:28)
[2022-05-04] MEDS: METAMUCIL (PSYLLIUM) PACKET PO SCH (08:28)
[2022-05-04] MEDS: METOPROLOL TART 12.5 MG PER 1/2 TAB PO SCH (08:28)
[2022-05-04] MEDS: PANTOPRAZOLE 40MG TAB (PROTONIX) PO SCH (08:29)
[2022-05-04] MEDS: GABAPENTIN 300 MG CAP PO SCH ×4 (08:29→21:57)
[2022-05-04] MEDS: AMIODARONE 200 MG TAB (PACERONE) PO SCH ×3 (08:29→21:00)
[2022-05-04] MEDS: TOLVAPTAN 7.5 MG HALF-TAB PO SCH (08:30)
[2022-05-04] MEDS: FERROUS SULFATE 300MG/5ML UDC LIQUID PO SCH (09:00)
[2022-05-04] MEDS ORDERED: PROMETHAZINE 25 MG TAB PO PRN (09:15)
[2022-05-04] MEDS: LIDOCAINE 5% (LIDODERM) PATCH TD SCH (09:42)
[2022-05-04] MEDS: ENOXAPARIN 60MG/0.6ML SYRINGE (J1650 PER 10MG) SC SCH ×3 (09:42→21:57)
[2022-05-04] MEDS: SODIUM CHLORIDE 0.9% INJ 10 ML SYR IV PRN ×2 (09:43→13:24)
[2022-05-04] MEDS: LEVOTHYROXINE 100MCG (0.1MG) 5ML SDV PF (SOLUTION FORM) IV SCH (13:22)
[2022-05-04] MEDS: MORPHINE 10MG/0.5ML ORAL CONCENTRATE SOLUTION U/D SL SCH ×2 (13:23→21:36)
[2022-05-04] MEDS: LISINOPRIL *2.5 MG* TAB PO SCH (13:27)
[2022-05-04] MEDS: FUROSEMIDE 40 MG TAB PO SCH ×3 (13:28→21:00)
[2022-05-04 13:30] VITALS: BP 109/53
[2022-05-04 15:00] VITALS: BP 118/44
[2022-05-04] MEDS: ATORVASTATIN 20 MG TAB PO SCH ×2 (20:38→21:57)
[2022-05-04] MEDS: MESALAMINE 250 MG CR CAP PO SCH ×2 (20:39→21:57)
[2022-05-04 21:49] VITALS: BP 105/46
[2022-05-05] MEDS: SODIUM CHLORIDE HYPERTONIC 3% 15ML NEB SOL INH SCH ×4 (01:58→19:42)
[2022-05-05] MEDS: LEVALBUTEROL 1.25MG 0.5ML CONCENTRATE NEB INH SCH ×4 (01:58→19:42)
[2022-05-05] MEDS: ACETAMINOPHEN 325MG/10.15ML UDC PO SCH ×4 (02:56→17:10)
[2022-05-05] MEDS: SODIUM CHLORIDE 0.9% INJ 10 ML SYR IV SCH ×2 (05:29→17:11)
[2022-05-05] MEDS: MORPHINE 10MG/0.5ML ORAL CONCENTRATE SOLUTION U/D SL SCH ×3 (05:30→21:35)
[2022-05-05 06:00] VITALS: BP 98/50
[2022-05-05 06:14] LABS: HEMATOCRIT 28.6 % (42.0-52.0); HEMOGLOBIN 9.1 g/dl (13.5-17.5); MEAN CORPUSCULAR HGB CONC 31.8 g/dl (32.0-36.5); PLATELET COUNT, AUTOMATED 499 10^3/uL (150-450); RED BLOOD COUNT 3.25 10^6/uL (4.30-6.10); WHITE BLOOD COUNT 8.3 10^3/uL (4.0-10.0)
[2022-05-05 07:04] LABS: ALBUMIN 2.2 GM/DL (3.2-5.2); ALKALINE PHOSPHATASE 195 U/L (45-117); ALT/SGPT 20 U/L (12-78); AST/SGOT 12 U/L (7-37); BILIRUBIN,DIRECT 0.2 MG/DL (0.0-0.2); BILIRUBIN,TOTAL 0.5 MG/DL (0.2-1.0); BLOOD UREA NITROGEN 13 MG/DL (7-18); CALCIUM LEVEL 8.8 MG/DL (8.8-10.2); CARBON DIOXIDE LEVEL 29 MEQ/L (21-32); CHLORIDE LEVEL 97 MEQ/L (98-107); CREATININE FOR GFR 0.67 MG/DL (0.70-1.30); GLOMERULAR FILTRATION RATE > 60.0 (>42); GLUCOSE, FASTING 79 MG/DL (70-100); POTASSIUM SERUM 4.4 MEQ/L (3.5-5.1); SODIUM LEVEL 133 MEQ/L (136-145); TOTAL PROTEIN 5.4 GM/DL (6.4-8.2)
[2022-05-05] MEDS: MIRALAX *UNIT DOSE* 17GM PACKET PO SCH (07:57)
[2022-05-05] MEDS: FUROSEMIDE 20 MG TAB PO SCH (08:00)
[2022-05-05] MEDS: METOPROLOL TART 12.5 MG PER 1/2 TAB PO SCH (08:00)
[2022-05-05] MEDS: AMIODARONE 200 MG TAB (PACERONE) PO SCH ×2 (08:02→21:00)
[2022-05-05] MEDS: LISINOPRIL *2.5 MG* TAB PO SCH (08:05)
[2022-05-05] MEDS: LIDOCAINE 5% (LIDODERM) PATCH TD SCH ×3 (08:17→21:17)
[2022-05-05] MEDS: METAMUCIL (PSYLLIUM) PACKET PO SCH (08:18)
[2022-05-05] MEDS: OMEPRAZOLE SUSPENSION 20MG 10ML ORAL SYRINGE PO SCH (08:18)
[2022-05-05] MEDS: TOLVAPTAN 7.5 MG HALF-TAB PO SCH (08:19)
[2022-05-05] MEDS: ENOXAPARIN 60MG/0.6ML SYRINGE (J1650 PER 10MG) SC SCH ×2 (08:19→21:08)
[2022-05-05] MEDS: LACTOBACILLUS ACIDOPHILUS CAP (BACID) PO SCH ×2 (08:19→17:11)
[2022-05-05] MEDS: ASPIRIN 81MG CHEW TABLET PO SCH (08:19)
[2022-05-05] MEDS: BACLOFEN 10 MG TAB PO SCH ×3 (08:19→21:50)
[2022-05-05] MEDS: ESCITALOPRAM OXALATE 5MG TABLET (LEXAPRO) PO SCH (08:19)
[2022-05-05] MEDS: GABAPENTIN 300 MG CAP PO SCH ×3 (08:20→21:06)
[2022-05-05] MEDS: LEVOTHYROXINE 150MCG TABLET (0.15MG) PO SCH (08:20)
[2022-05-05] MEDS: FERROUS SULFATE 300MG/5ML UDC LIQUID PO SCH (11:02)
[2022-05-05 14:00] VITALS: BP 82/49
[2022-05-05 20:17] VITALS: BP 113/51
[2022-05-05] MEDS: MESALAMINE 250 MG CR CAP PO SCH (21:05)
[2022-05-05] MEDS: guaiFENesin SYRUP 200MG 10ML UDC PO PRN (21:06)
[2022-05-05] MEDS: ATORVASTATIN 20 MG TAB PO SCH (21:06)
[2022-05-05 21:35] VITALS: BP 114/56
[2022-05-05 22:42] VITALS: BP 98/58
[2022-05-06] MEDS: SODIUM CHLORIDE HYPERTONIC 3% 15ML NEB SOL INH SCH ×4 (00:45→20:00)
[2022-05-06] MEDS: LEVALBUTEROL 1.25MG 0.5ML CONCENTRATE NEB INH SCH ×4 (00:46→20:00)
[2022-05-06] MEDS ORDERED: MIDODRINE 5 MG TAB PO ONE (05:40)
[2022-05-06] MEDS: ACETAMINOPHEN 325MG/10.15ML UDC PO SCH ×4 (05:43→18:18)
[2022-05-06] MEDS: SODIUM CHLORIDE 0.9% INJ 10 ML SYR IV SCH ×2 (05:45→18:00)
[2022-05-06] MEDS ORDERED: KETOROLAC 30 MG/ML 1ML VIAL IV ONE (05:45)
[2022-05-06] MEDS: MORPHINE 10MG/0.5ML ORAL CONCENTRATE SOLUTION U/D SL SCH ×3 (05:46→23:19)
[2022-05-06] MEDS: LEVOTHYROXINE 150MCG TABLET (0.15MG) PO SCH (05:46)
[2022-05-06 05:49] VITALS: BP 83/46
[2022-05-06 06:09] LABS: HEMATOCRIT 28.2 % (42.0-52.0); HEMOGLOBIN 8.9 g/dl (13.5-17.5); MEAN CORPUSCULAR HEMOGLOBIN 27.4 pg (27.0-33.0); MEAN CORPUSCULAR HGB CONC 31.6 g/dl (32.0-36.5); MEAN CORPUSCULAR VOLUME 86.8 fl (80.0-96.0); PLATELET COUNT, AUTOMATED 437 10^3/uL (150-450); RED BLOOD COUNT 3.25 10^6/uL (4.30-6.10)
[2022-05-06 06:46] LABS: ALBUMIN 2.1 GM/DL (3.2-5.2); ALKALINE PHOSPHATASE 186 U/L (45-117); ALT/SGPT 18 U/L (12-78); AST/SGOT 11 U/L (7-37); BILIRUBIN,DIRECT 0.2 MG/DL (0.0-0.2); BILIRUBIN,TOTAL 0.4 MG/DL (0.2-1.0); BLOOD UREA NITROGEN 13 MG/DL (7-18); CALCIUM LEVEL 8.6 MG/DL (8.8-10.2); CARBON DIOXIDE LEVEL 27 MEQ/L (21-32); CHLORIDE LEVEL 99 MEQ/L (98-107); GLOMERULAR FILTRATION RATE > 60.0 (>42); GLUCOSE, FASTING 79 MG/DL (70-100); POTASSIUM SERUM 4.3 MEQ/L (3.5-5.1); SODIUM LEVEL 133 MEQ/L (136-145); TOTAL PROTEIN 5.2 GM/DL (6.4-8.2)
[2022-05-06 07:20] VITALS: BP 99/59
[2022-05-06] MEDS: AMIODARONE 200 MG TAB (PACERONE) PO SCH ×2 (09:00→21:00)
[2022-05-06] MEDS: FUROSEMIDE 20 MG TAB PO SCH (09:00)
[2022-05-06] MEDS: MIRALAX *UNIT DOSE* 17GM PACKET PO SCH ×2 (09:00→21:00)
[2022-05-06] MEDS: METOPROLOL TART 12.5 MG PER 1/2 TAB PO SCH (09:00)
[2022-05-06] MEDS: METAMUCIL (PSYLLIUM) PACKET PO SCH ×2 (09:00→21:00)
[2022-05-06] MEDS: LISINOPRIL *2.5 MG* TAB PO SCH (09:00)
[2022-05-06] MEDS: ENOXAPARIN 60MG/0.6ML SYRINGE (J1650 PER 10MG) SC SCH ×2 (10:18→23:20)
[2022-05-06] MEDS: GABAPENTIN 300 MG CAP PO SCH ×3 (10:20→21:00)
[2022-05-06] MEDS: ESCITALOPRAM OXALATE 5MG TABLET (LEXAPRO) PO SCH (10:20)
[2022-05-06] MEDS: BACLOFEN 10 MG TAB PO SCH ×3 (10:21→21:00)
[2022-05-06] MEDS: ASPIRIN 81MG CHEW TABLET PO SCH (10:21)
[2022-05-06] MEDS: TOLVAPTAN 7.5 MG HALF-TAB PO SCH (10:29)
[2022-05-06] MEDS: OMEPRAZOLE SUSPENSION 20MG 10ML ORAL SYRINGE PO SCH (10:30)
[2022-05-06] MEDS: FERROUS SULFATE 300MG/5ML UDC LIQUID PO SCH (11:27)
[2022-05-06] MEDS: LACTOBACILLUS ACIDOPHILUS CAP (BACID) PO SCH ×2 (11:28→18:00)
[2022-05-06] MEDS: fentaNYL 50 MCG/HR PATCH TOP SCH (13:28)
[2022-05-06 13:37] VITALS: BP 96/58
[2022-05-06 14:00] VITALS: BP 117/47
[2022-05-06] MEDS: oxyCODONE 5MG TAB PO PRN (18:05)
[2022-05-06] MEDS: SODIUM CHLORIDE 0.9% INJ 10 ML SYR IV PRN (18:08)
[2022-05-06] MEDS: SCOPOLAMINE 1MG TRANSDERMAL PATCH TOP SCH (18:10)
[2022-05-06] MEDS: ATORVASTATIN 20 MG TAB PO SCH (21:00)
[2022-05-06] MEDS: MESALAMINE 250 MG CR CAP PO SCH (21:00)
[2022-05-07] MEDS: LEVALBUTEROL 1.25MG 0.5ML CONCENTRATE NEB INH SCH ×4 (03:09→19:36)
[2022-05-07] MEDS: SODIUM CHLORIDE HYPERTONIC 3% 15ML NEB SOL INH SCH ×4 (03:10→19:36)
[2022-05-07 06:10] LABS: HEMATOCRIT 29.1 % (42.0-52.0); HEMOGLOBIN 8.9 g/dl (13.5-17.5); MEAN CORPUSCULAR HEMOGLOBIN 27.5 pg (27.0-33.0); MEAN CORPUSCULAR HGB CONC 30.6 g/dl (32.0-36.5); MEAN CORPUSCULAR VOLUME 89.8 fl (80.0-96.0); PLATELET COUNT, AUTOMATED 404 10^3/uL (150-450); RED BLOOD COUNT 3.24 10^6/uL (4.30-6.10); WHITE BLOOD COUNT 8.2 10^3/uL (4.0-10.0)
[2022-05-07] MEDS: SODIUM CHLORIDE 0.9% INJ 10 ML SYR IV SCH ×2 (06:25→17:17)
[2022-05-07] MEDS: ACETAMINOPHEN 325MG/10.15ML UDC PO SCH ×4 (06:25→17:14)
[2022-05-07] MEDS: MORPHINE 10MG/0.5ML ORAL CONCENTRATE SOLUTION U/D SL SCH ×3 (06:28→21:29)
[2022-05-07] MEDS: LEVOTHYROXINE 150MCG TABLET (0.15MG) PO SCH (06:28)
[2022-05-07 06:41] LABS: ALKALINE PHOSPHATASE 189 U/L (45-117); ALT/SGPT 16 U/L (12-78); AST/SGOT 10 U/L (7-37); BILIRUBIN,DIRECT 0.2 MG/DL (0.0-0.2); BILIRUBIN,TOTAL 0.4 MG/DL (0.2-1.0); BLOOD UREA NITROGEN 15 MG/DL (7-18); CALCIUM LEVEL 8.5 MG/DL (8.8-10.2); CARBON DIOXIDE LEVEL 28 MEQ/L (21-32); CHLORIDE LEVEL 100 MEQ/L (98-107); CREATININE FOR GFR 0.62 MG/DL (0.70-1.30); GLOMERULAR FILTRATION RATE > 60.0 (>42); GLUCOSE, FASTING 80 MG/DL (70-100); POTASSIUM SERUM 4.2 MEQ/L (3.5-5.1); SODIUM LEVEL 133 MEQ/L (136-145); TOTAL PROTEIN 5.2 GM/DL (6.4-8.2)
[2022-05-07 06:59] VITALS: BP 114/47
[2022-05-07] MEDS: LIDOCAINE 5% (LIDODERM) PATCH TD SCH (09:00)
[2022-05-07] MEDS: METOPROLOL TART 12.5 MG PER 1/2 TAB PO SCH (09:00)
[2022-05-07] MEDS: OMEPRAZOLE SUSPENSION 20MG 10ML ORAL SYRINGE PO SCH (10:02)
[2022-05-07] MEDS: FERROUS SULFATE 300MG/5ML UDC LIQUID PO SCH (10:02)
[2022-05-07] MEDS: ENOXAPARIN 60MG/0.6ML SYRINGE (J1650 PER 10MG) SC SCH ×2 (10:03→21:00)
[2022-05-07] MEDS: oxyCODONE 5MG TAB PO PRN ×2 (10:03→17:02)
[2022-05-07] MEDS: TOLVAPTAN 7.5 MG HALF-TAB PO SCH (10:04)
[2022-05-07] MEDS: ASPIRIN 81MG CHEW TABLET PO SCH (10:04)
[2022-05-07] MEDS: LACTOBACILLUS ACIDOPHILUS CAP (BACID) PO SCH ×2 (10:04→17:02)
[2022-05-07] MEDS: ESCITALOPRAM OXALATE 5MG TABLET (LEXAPRO) PO SCH (10:04)
[2022-05-07] MEDS: AMIODARONE 200 MG TAB (PACERONE) PO SCH ×2 (10:05→21:00)
[2022-05-07] MEDS: BACLOFEN 10 MG TAB PO SCH ×3 (10:05→21:00)
[2022-05-07] MEDS: FUROSEMIDE 20 MG TAB PO SCH (10:05)
[2022-05-07] MEDS: GABAPENTIN 300 MG CAP PO SCH ×3 (10:05→21:00)
[2022-05-07] MEDS: METAMUCIL (PSYLLIUM) PACKET PO SCH ×2 (10:08→21:00)
[2022-05-07] MEDS: LISINOPRIL *2.5 MG* TAB PO SCH (10:08)
[2022-05-07] MEDS: MIRALAX *UNIT DOSE* 17GM PACKET PO SCH ×2 (10:08→21:00)
[2022-05-07] MEDS: MESALAMINE 250 MG CR CAP PO SCH (21:00)
[2022-05-07] MEDS: ATORVASTATIN 20 MG TAB PO SCH (21:00)
[2022-05-08] MEDS: SODIUM CHLORIDE HYPERTONIC 3% 15ML NEB SOL INH SCH ×4 (01:03→20:00)
[2022-05-08] MEDS: LEVALBUTEROL 1.25MG 0.5ML CONCENTRATE NEB INH SCH ×4 (01:05→20:00)
[2022-05-08] MEDS: MORPHINE 10MG/0.5ML ORAL CONCENTRATE SOLUTION U/D SL SCH ×2 (05:54→15:10)
[2022-05-08] MEDS: SODIUM CHLORIDE 0.9% INJ 10 ML SYR IV SCH ×2 (05:55→18:00)
[2022-05-08] MEDS: LEVOTHYROXINE 150MCG TABLET (0.15MG) PO SCH (05:56)
[2022-05-08] MEDS: ACETAMINOPHEN 325MG/10.15ML UDC PO SCH ×5 (05:57→23:54)
[2022-05-08 07:20] LABS: ALBUMIN 2.1 GM/DL (3.2-5.2); BILIRUBIN,DIRECT 0.2 MG/DL (0.0-0.2); BILIRUBIN,TOTAL 0.4 MG/DL (0.2-1.0); TOTAL PROTEIN 5.4 GM/DL (6.4-8.2)
[2022-05-08] MEDS: METAMUCIL (PSYLLIUM) PACKET PO SCH ×2 (10:26→23:32)
[2022-05-08] MEDS: ENOXAPARIN 60MG/0.6ML SYRINGE (J1650 PER 10MG) SC SCH (10:26)
[2022-05-08] MEDS: MIRALAX *UNIT DOSE* 17GM PACKET PO SCH ×2 (10:26→23:32)
[2022-05-08] MEDS: FERROUS SULFATE 300MG/5ML UDC LIQUID PO SCH (10:26)
[2022-05-08] MEDS: GABAPENTIN 300 MG CAP PO SCH ×3 (10:27→23:50)
[2022-05-08] MEDS: ESCITALOPRAM OXALATE 5MG TABLET (LEXAPRO) PO SCH (10:28)
[2022-05-08] MEDS: METOPROLOL TART 12.5 MG PER 1/2 TAB PO SCH (10:28)
[2022-05-08] MEDS: AMIODARONE 200 MG TAB (PACERONE) PO SCH ×2 (10:28→23:37)
[2022-05-08] MEDS: LISINOPRIL *2.5 MG* TAB PO SCH (10:28)
[2022-05-08] MEDS: ASPIRIN 81MG CHEW TABLET PO SCH (10:29)
[2022-05-08] MEDS: FUROSEMIDE 20 MG TAB PO SCH (10:29)
[2022-05-08] MEDS: TOLVAPTAN 7.5 MG HALF-TAB PO SCH (10:29)
[2022-05-08] MEDS: oxyCODONE 5MG TAB PO PRN ×2 (10:30→17:37)
[2022-05-08] MEDS: LIDOCAINE 5% (LIDODERM) PATCH TD SCH (10:31)
[2022-05-08] MEDS: BACLOFEN 10 MG TAB PO SCH ×3 (10:31→23:50)
[2022-05-08] MEDS: OMEPRAZOLE SUSPENSION 20MG 10ML ORAL SYRINGE PO SCH (10:33)
[2022-05-08] MEDS: LACTOBACILLUS ACIDOPHILUS CAP (BACID) PO SCH ×2 (10:56→17:50)
[2022-05-08] MEDS: MESALAMINE 250 MG CR CAP PO SCH (23:33)
[2022-05-08 23:37] VITALS: BP 98/48
[2022-05-08] MEDS: ATORVASTATIN 20 MG TAB PO SCH (23:39)
[2022-05-09] VITALS (10 sets, daily range): BP systolic 62–108; BP diastolic 40–78
[2022-05-09] MEDS: ENOXAPARIN 60MG/0.6ML SYRINGE (J1650 PER 10MG) SC SCH ×3 (00:20→20:45)
[2022-05-09] MEDS: MORPHINE 10MG/0.5ML ORAL CONCENTRATE SOLUTION U/D SL SCH ×4 (00:22→20:40)
[2022-05-09] MEDS: SODIUM CHLORIDE 0.9% INJ 10 ML SYR IV PRN ×6 (00:22→23:34)
[2022-05-09] MEDS ORDERED: ONDANSETRON 4MG 2ML VIAL IV ONE (01:00)
[2022-05-09] MEDS: LEVALBUTEROL 1.25MG 0.5ML CONCENTRATE NEB INH SCH ×4 (01:18→19:24)
[2022-05-09] MEDS: SODIUM CHLORIDE HYPERTONIC 3% 15ML NEB SOL INH SCH ×4 (01:18→19:24)
[2022-05-09] MEDS: ACETAMINOPHEN 325MG/10.15ML UDC PO SCH ×3 (06:00→18:21)
[2022-05-09] MEDS: LEVOTHYROXINE 150MCG TABLET (0.15MG) PO SCH (06:00)
[2022-05-09] MEDS: FUROSEMIDE 20 MG TAB PO SCH (08:04)
[2022-05-09] MEDS: AMIODARONE 200 MG TAB (PACERONE) PO SCH (08:06)
[2022-05-09] MEDS: LISINOPRIL *2.5 MG* TAB PO SCH (08:06)
[2022-05-09] MEDS: SODIUM CHLORIDE 0.9% INJ 10 ML SYR IV SCH ×2 (08:10→18:23)
[2022-05-09] MEDS: METAMUCIL (PSYLLIUM) PACKET PO SCH ×2 (09:00→20:35)
[2022-05-09] MEDS: METOPROLOL TART 12.5 MG PER 1/2 TAB PO SCH (09:00)
[2022-05-09] MEDS: MIRALAX *UNIT DOSE* 17GM PACKET PO SCH ×2 (09:00→20:35)
[2022-05-09] MEDS: ESCITALOPRAM OXALATE 5MG TABLET (LEXAPRO) PO SCH (09:23)
[2022-05-09] MEDS: TOLVAPTAN 7.5 MG HALF-TAB PO SCH (09:23)
[2022-05-09] MEDS: OMEPRAZOLE SUSPENSION 20MG 10ML ORAL SYRINGE PO SCH (09:24)
[2022-05-09] MEDS: BACLOFEN 10 MG TAB PO SCH ×3 (09:24→20:40)
[2022-05-09] MEDS: ASPIRIN 81MG CHEW TABLET PO SCH (09:24)
[2022-05-09] MEDS: LACTOBACILLUS ACIDOPHILUS CAP (BACID) PO SCH ×2 (09:24→18:21)
[2022-05-09] MEDS: GABAPENTIN 300 MG CAP PO SCH ×3 (09:31→20:40)
[2022-05-09] MEDS: LIDOCAINE 5% (LIDODERM) PATCH TD SCH (09:33)
[2022-05-09] MEDS: FERROUS SULFATE 300MG/5ML UDC LIQUID PO SCH (11:25)
[2022-05-09] MEDS: fentaNYL 50 MCG/HR PATCH TOP SCH (13:53)
[2022-05-09] MEDS ORDERED: LR 500 ML IV ONE (14:20)
[2022-05-09] MEDS: SCOPOLAMINE 1MG TRANSDERMAL PATCH TOP SCH (16:09)
[2022-05-09 17:45] LABS: HEMATOCRIT 32.6 % (42.0-52.0); HEMOGLOBIN 10.2 g/dl (13.5-17.5); MEAN CORPUSCULAR HEMOGLOBIN 27.9 pg (27.0-33.0); MEAN CORPUSCULAR HGB CONC 31.3 g/dl (32.0-36.5); MEAN CORPUSCULAR VOLUME 89.1 fl (80.0-96.0); PLATELET COUNT, AUTOMATED 304 10^3/uL (150-450); RED BLOOD COUNT 3.66 10^6/uL (4.30-6.10); WHITE BLOOD COUNT 13.1 10^3/uL (4.0-10.0)
[2022-05-09 19:41] LABS: ALBUMIN 2.2 GM/DL (3.2-5.2); ALKALINE PHOSPHATASE 189 U/L (45-117); ALT/SGPT 16 U/L (12-78); AST/SGOT 8 U/L (7-37); BILIRUBIN,TOTAL 0.4 MG/DL (0.2-1.0); BLOOD UREA NITROGEN 20 MG/DL (7-18); CALCIUM LEVEL 8.7 MG/DL (8.8-10.2); CARBON DIOXIDE LEVEL 28 MEQ/L (21-32); CHLORIDE LEVEL 101 MEQ/L (98-107); GLOMERULAR FILTRATION RATE > 60.0 (>42); GLUCOSE, FASTING 123 MG/DL (70-100); POTASSIUM SERUM 4.5 MEQ/L (3.5-5.1); SODIUM LEVEL 134 MEQ/L (136-145); TOTAL PROTEIN 5.1 GM/DL (6.4-8.2)
[2022-05-09] MEDS ORDERED: LR 1,000 ML IV ONE (20:40)
[2022-05-09] MEDS: MESALAMINE 250 MG CR CAP PO SCH (20:40)
[2022-05-09] MEDS: ATORVASTATIN 20 MG TAB PO SCH (20:45)
[2022-05-09] MEDS: PIPERACILLIN/TAZOBACTAM SOD 3.375 GM in D5W MINI-BAG PLUS 50 ML IV SCH (21:40)
[2022-05-09] MEDS ORDERED: VANCOMYCIN HCL 1,000 MG, VIAL MATE ADAPTER 1 EACH in NS 250 ML IV ONE ×2 (22:00→23:00)
[2022-05-10] VITALS (14 sets, daily range): BP systolic 75–106; BP diastolic 46–64
[2022-05-10] MEDS: ACETAMINOPHEN 325MG/10.15ML UDC PO SCH ×5 (00:18→23:37)
[2022-05-10] MEDS: LEVALBUTEROL 1.25MG 0.5ML CONCENTRATE NEB INH SCH ×4 (00:57→19:46)
[2022-05-10] MEDS: SODIUM CHLORIDE HYPERTONIC 3% 15ML NEB SOL INH SCH ×4 (01:03→19:46)
[2022-05-10] MEDS ORDERED: LR 1,000 ML IV SCH ×2 (02:35→12:30)
[2022-05-10] MEDS: PIPERACILLIN/TAZOBACTAM SOD 3.375 GM in D5W MINI-BAG PLUS 50 ML IV SCH ×4 (03:14→22:19)
[2022-05-10] MEDS: SODIUM CHLORIDE 0.9% INJ 10 ML SYR IV PRN ×5 (03:14→23:37)
[2022-05-10] MEDS ORDERED: VANCOMYCIN HCL 1,000 MG, VIAL MATE ADAPTER 1 EACH in D5W 250 ML IV SCH (05:00)
[2022-05-10] MEDS: SODIUM CHLORIDE 0.9% INJ 10 ML SYR IV SCH ×2 (05:49→18:28)
[2022-05-10] MEDS: LEVOTHYROXINE 150MCG TABLET (0.15MG) PO SCH (05:53)
[2022-05-10] MEDS: MORPHINE 10MG/0.5ML ORAL CONCENTRATE SOLUTION U/D SL SCH ×3 (05:55→23:37)
[2022-05-10] MEDS ORDERED: VANCOMYCIN HCL 750 MG, VIAL MATE ADAPTER 1 EACH in D5W 250 ML IV SCH ×3 (06:00→23:00)
[2022-05-10 06:22] LABS: EOS % 0.1 % (0.0-3.0); HEMATOCRIT 24.4 % (42.0-52.0); LYMPH # 0.2 10^3/uL (1.5-5.0); LYMPH % 2.2 % (24.0-44.0); MEAN CORPUSCULAR HEMOGLOBIN 27.5 pg (27.0-33.0); MEAN CORPUSCULAR HGB CONC 31.1 g/dl (32.0-36.5); MEAN CORPUSCULAR VOLUME 88.4 fl (80.0-96.0); MONO # 0.5 10^3/uL (0.0-0.8); MONO % 5.9 % (2.0-8.0); NEUTROPHILS % 91.1 % (36.0-66.0); PLATELET COUNT, AUTOMATED 338 10^3/uL (150-450); RED BLOOD COUNT 2.76 10^6/uL (4.30-6.10); WHITE BLOOD COUNT 8.8 10^3/uL (4.0-10.0)
[2022-05-10 06:27] LABS: HEMOGLOBIN 7.6 g/dl (13.5-17.5)
[2022-05-10 07:09] LABS: NT-PRO BNP 856 PG/ML (<450)
[2022-05-10 07:57] LABS: ALBUMIN 1.8 GM/DL (3.2-5.2); ALKALINE PHOSPHATASE 160 U/L (45-117); ALT/SGPT 13 U/L (12-78); AST/SGOT 6 U/L (7-37); BILIRUBIN,TOTAL 0.3 MG/DL (0.2-1.0); BLOOD UREA NITROGEN 17 MG/DL (7-18); CALCIUM LEVEL 8.2 MG/DL (8.8-10.2); CARBON DIOXIDE LEVEL 25 MEQ/L (21-32); CHLORIDE LEVEL 103 MEQ/L (98-107); CREATININE FOR GFR 0.66 MG/DL (0.70-1.30); GLOMERULAR FILTRATION RATE > 60.0 (>42); GLUCOSE, FASTING 90 MG/DL (70-100); MAGNESIUM LEVEL 1.7 MG/DL (1.8-2.4); PHOSPHORUS LEVEL 2.4 MG/DL (2.5-4.9); SODIUM LEVEL 135 MEQ/L (136-145); TOTAL PROTEIN 4.5 GM/DL (6.4-8.2)
[2022-05-10 08:37] LABS: INR 0.92; PROTHROMBIN TIME 12.6 SECONDS (12.5-14.5)
[2022-05-10] MEDS: MIRALAX *UNIT DOSE* 17GM PACKET PO SCH ×3 (09:00→23:08)
[2022-05-10] MEDS ORDERED: fentaNYL 50 MCG/HR PATCH TOP SCH (09:00)
[2022-05-10] MEDS: METAMUCIL (PSYLLIUM) PACKET PO SCH ×3 (09:00→23:08)
[2022-05-10] MEDS: LIDOCAINE 5% (LIDODERM) PATCH TD SCH (09:21)
[2022-05-10] MEDS: FERROUS SULFATE 300MG/5ML UDC LIQUID PO SCH (09:21)
[2022-05-10] MEDS: ENOXAPARIN 60MG/0.6ML SYRINGE (J1650 PER 10MG) SC SCH (09:22)
[2022-05-10] MEDS: OMEPRAZOLE SUSPENSION 20MG 10ML ORAL SYRINGE PO SCH (09:22)
[2022-05-10] MEDS: LACTOBACILLUS ACIDOPHILUS CAP (BACID) PO SCH ×2 (09:23→18:27)
[2022-05-10] MEDS: TOLVAPTAN 7.5 MG HALF-TAB PO SCH (09:23)
[2022-05-10] MEDS: GABAPENTIN 300 MG CAP PO SCH ×3 (09:23→23:16)
[2022-05-10] MEDS: ASPIRIN 81MG CHEW TABLET PO SCH (09:23)
[2022-05-10] MEDS: BACLOFEN 10 MG TAB PO SCH ×3 (09:23→23:16)
[2022-05-10] MEDS: ESCITALOPRAM OXALATE 5MG TABLET (LEXAPRO) PO SCH (09:23)
[2022-05-10 12:23] LABS: HEMATOCRIT 24.7 % (42.0-52.0); HEMOGLOBIN 7.5 g/dl (13.5-17.5); MEAN CORPUSCULAR HEMOGLOBIN 27.1 pg (27.0-33.0); MEAN CORPUSCULAR HGB CONC 30.4 g/dl (32.0-36.5); MEAN CORPUSCULAR VOLUME 89.2 fl (80.0-96.0); RED BLOOD COUNT 2.77 10^6/uL (4.30-6.10); WHITE BLOOD COUNT 11.3 10^3/uL (4.0-10.0)
[2022-05-10 13:02] LABS: PLATELET COUNT, AUTOMATED 331 10^3/uL (150-450)
[2022-05-10] MEDS ORDERED: LR 500 ML IV SCH (13:05)
[2022-05-10] MEDS ORDERED: LACTATED RINGER'S 1000 ML IV ONE (13:45)
[2022-05-10 16:37] LABS: FERRITIN 450 NG/ML (26-388); IRON (FE) 41 UG/DL (65-175); PERCENT SATURATION 25.8 % (19.7-50.0); TOTAL IRON BINDING CAPACITY 159 UG/DL (250-450)
[2022-05-10 17:09] LABS: FOLATE 4.9 NG/ML (>5.4); VITAMIN B12 LEVEL > 2000 PG/ML (247-911)
[2022-05-10] MEDS: FOLIC ACID 1 MG in NS 50 ML IV SCH (22:19)
[2022-05-10 22:47] LABS: HEMATOCRIT 28.5 % (42.0-52.0)
[2022-05-10] MEDS: MESALAMINE 250 MG CR CAP PO SCH (23:08)
[2022-05-10] MEDS: ATORVASTATIN 20 MG TAB PO SCH (23:16)
[2022-05-11] VITALS (8 sets, daily range): BP systolic 66–120; BP diastolic 52–78
[2022-05-11] MEDS: LEVALBUTEROL 1.25MG 0.5ML CONCENTRATE NEB INH SCH ×4 (01:37→19:11)
[2022-05-11] MEDS: SODIUM CHLORIDE HYPERTONIC 3% 15ML NEB SOL INH SCH ×4 (01:38→19:12)
[2022-05-11] MEDS: SODIUM CHLORIDE 0.9% INJ 10 ML SYR IV PRN ×2 (02:03→03:41)
[2022-05-11] MEDS: PIPERACILLIN/TAZOBACTAM SOD 3.375 GM in D5W MINI-BAG PLUS 50 ML IV SCH ×4 (02:03→21:58)
[2022-05-11] MEDS: LEVOTHYROXINE 150MCG TABLET (0.15MG) PO SCH (06:34)
[2022-05-11] MEDS: ACETAMINOPHEN 325MG/10.15ML UDC PO SCH ×3 (06:35→18:25)
[2022-05-11] MEDS: MORPHINE 10MG/0.5ML ORAL CONCENTRATE SOLUTION U/D SL SCH ×2 (06:39→18:23)
[2022-05-11] MEDS: SODIUM CHLORIDE 0.9% INJ 10 ML SYR IV SCH ×2 (06:40→18:25)
[2022-05-11 07:36] LABS: HEMATOCRIT 27.8 % (42.0-52.0); HEMOGLOBIN 8.8 g/dl (13.5-17.5); MEAN CORPUSCULAR HEMOGLOBIN 27.9 pg (27.0-33.0); MEAN CORPUSCULAR HGB CONC 31.7 g/dl (32.0-36.5); MEAN CORPUSCULAR VOLUME 88.3 fl (80.0-96.0); PLATELET COUNT, AUTOMATED 351 10^3/uL (150-450); RED BLOOD COUNT 3.15 10^6/uL (4.30-6.10); WHITE BLOOD COUNT 7.9 10^3/uL (4.0-10.0)
[2022-05-11 08:31] LABS: ALBUMIN 1.8 GM/DL (3.2-5.2); ALKALINE PHOSPHATASE 180 U/L (45-117); ALT/SGPT 14 U/L (12-78); AST/SGOT 10 U/L (7-37); BILIRUBIN,TOTAL 0.5 MG/DL (0.2-1.0); BLOOD UREA NITROGEN 13 MG/DL (7-18); CALCIUM LEVEL 8.3 MG/DL (8.8-10.2); CARBON DIOXIDE LEVEL 23 MEQ/L (21-32); CHLORIDE LEVEL 103 MEQ/L (98-107); GLOMERULAR FILTRATION RATE > 60.0 (>42); GLUCOSE, FASTING 73 MG/DL (70-100); MAGNESIUM LEVEL 1.7 MG/DL (1.8-2.4); POTASSIUM SERUM 3.9 MEQ/L (3.5-5.1); SODIUM LEVEL 134 MEQ/L (136-145); TOTAL PROTEIN 4.7 GM/DL (6.4-8.2)
[2022-05-11] MEDS: GABAPENTIN 300 MG CAP PO SCH ×3 (09:00→20:42)
[2022-05-11] MEDS: BACLOFEN 10 MG TAB PO SCH ×3 (09:00→20:42)
[2022-05-11] MEDS ORDERED: NS 1,000 ML IV ONE ×2 (09:30→14:45)
[2022-05-11] MEDS: TOLVAPTAN 7.5 MG HALF-TAB PO SCH (10:15)
[2022-05-11] MEDS: LIDOCAINE 5% (LIDODERM) PATCH TD SCH (10:15)
[2022-05-11] MEDS: LACTOBACILLUS ACIDOPHILUS CAP (BACID) PO SCH ×2 (10:16→18:00)
[2022-05-11] MEDS: OMEPRAZOLE SUSPENSION 20MG 10ML ORAL SYRINGE PO SCH (10:16)
[2022-05-11] MEDS ORDERED: FERROUS SULFATE 300MG/5ML UDC LIQUID PO SCH (10:17)
[2022-05-11] MEDS: ASPIRIN 81MG CHEW TABLET PO SCH (10:18)
[2022-05-11] MEDS: MIRALAX *UNIT DOSE* 17GM PACKET PO SCH ×2 (10:19→20:44)
[2022-05-11] MEDS: METAMUCIL (PSYLLIUM) PACKET PO SCH ×2 (10:19→20:43)
[2022-05-11] MEDS: ESCITALOPRAM OXALATE 5MG TABLET (LEXAPRO) PO SCH (10:19)
[2022-05-11] MEDS ORDERED: MAG SULF 1GM/100ML (MAG RUN) 1 GM in IV 1 EA IV ONE (11:00)
[2022-05-11] MEDS ORDERED: ISOVUE-370 76% 100ML VIAL As Ordered ONE (11:23)
[2022-05-11] MEDS: FERROUS SULFATE 300MG/5ML UDC LIQUID PO SCH (11:54)
[2022-05-11] MEDS ORDERED: NS 500 ML IV ONE (15:15)
[2022-05-11] MEDS: ATORVASTATIN 20 MG TAB PO SCH (20:41)
[2022-05-11] MEDS: MESALAMINE 250 MG CR CAP PO SCH (20:42)
[2022-05-11] MEDS: FOLIC ACID 1 MG in NS 50 ML IV SCH (20:43)
[2022-05-11] MEDS: oxyCODONE 5MG TAB PO PRN (20:48)
[2022-05-12] VITALS (7 sets, daily range): BP systolic 88–138; BP diastolic 50–70
[2022-05-12] MEDS: ACETAMINOPHEN 325MG/10.15ML UDC PO SCH ×4 (01:36→17:55)
[2022-05-12] MEDS: LEVALBUTEROL 1.25MG 0.5ML CONCENTRATE NEB INH SCH ×4 (01:52→19:10)
[2022-05-12] MEDS: SODIUM CHLORIDE HYPERTONIC 3% 15ML NEB SOL INH SCH ×4 (01:52→19:10)
[2022-05-12] MEDS: PIPERACILLIN/TAZOBACTAM SOD 3.375 GM in D5W MINI-BAG PLUS 50 ML IV SCH ×2 (03:58→09:24)
[2022-05-12] MEDS: LEVOTHYROXINE 150MCG TABLET (0.15MG) PO SCH (06:00)
[2022-05-12 06:13] LABS: HEMATOCRIT 30.5 % (42.0-52.0); HEMOGLOBIN 9.6 g/dl (13.5-17.5); MEAN CORPUSCULAR HEMOGLOBIN 28.4 pg (27.0-33.0); MEAN CORPUSCULAR HGB CONC 31.5 g/dl (32.0-36.5); MEAN CORPUSCULAR VOLUME 90.2 fl (80.0-96.0); PLATELET COUNT, AUTOMATED 342 10^3/uL (150-450); RED BLOOD COUNT 3.38 10^6/uL (4.30-6.10); WHITE BLOOD COUNT 9.8 10^3/uL (4.0-10.0)
[2022-05-12] MEDS: SODIUM CHLORIDE 0.9% INJ 10 ML SYR IV SCH ×2 (06:16→17:57)
[2022-05-12] MEDS: MORPHINE 10MG/0.5ML ORAL CONCENTRATE SOLUTION U/D SL SCH ×2 (06:16→17:27)
[2022-05-12 06:52] LABS: ALBUMIN 1.8 GM/DL (3.2-5.2); ALKALINE PHOSPHATASE 194 U/L (45-117); ALT/SGPT 13 U/L (12-78); AST/SGOT 9 U/L (7-37); BILIRUBIN,TOTAL 0.4 MG/DL (0.2-1.0); BLOOD UREA NITROGEN 12 MG/DL (7-18); CALCIUM LEVEL 8.4 MG/DL (8.8-10.2); CARBON DIOXIDE LEVEL 25 MEQ/L (21-32); CHLORIDE LEVEL 103 MEQ/L (98-107); CREATININE FOR GFR 0.62 MG/DL (0.70-1.30); GLOMERULAR FILTRATION RATE > 60.0 (>42); GLUCOSE, FASTING 78 MG/DL (70-100); MAGNESIUM LEVEL 1.9 MG/DL (1.8-2.4); POTASSIUM SERUM 4.1 MEQ/L (3.5-5.1); SODIUM LEVEL 134 MEQ/L (136-145); TOTAL PROTEIN 4.8 GM/DL (6.4-8.2)
[2022-05-12] MEDS: LACTOBACILLUS ACIDOPHILUS CAP (BACID) PO SCH ×3 (08:00→17:56)
[2022-05-12] MEDS: ASPIRIN 81MG CHEW TABLET PO SCH ×2 (08:53→09:24)
[2022-05-12] MEDS: BACLOFEN 10 MG TAB PO SCH ×4 (08:53→21:00)
[2022-05-12] MEDS: FERROUS SULFATE 300MG/5ML UDC LIQUID PO SCH ×2 (08:53→09:26)
[2022-05-12] MEDS: OMEPRAZOLE SUSPENSION 20MG 10ML ORAL SYRINGE PO SCH ×2 (08:53→09:25)
[2022-05-12] MEDS: ESCITALOPRAM OXALATE 5MG TABLET (LEXAPRO) PO SCH ×2 (08:53→09:00)
[2022-05-12] MEDS: LIDOCAINE 5% (LIDODERM) PATCH TD SCH (08:54)
[2022-05-12] MEDS: METAMUCIL (PSYLLIUM) PACKET PO SCH ×2 (08:54→21:00)
[2022-05-12] MEDS: GABAPENTIN 300 MG CAP PO SCH ×4 (08:54→21:00)
[2022-05-12] MEDS: TOLVAPTAN 7.5 MG HALF-TAB PO SCH ×2 (08:54→09:25)
[2022-05-12] MEDS: MIRALAX *UNIT DOSE* 17GM PACKET PO SCH ×2 (08:54→21:00)
[2022-05-12] MEDS: oxyCODONE 5MG TAB PO PRN (15:51)
[2022-05-12] MEDS: SCOPOLAMINE 1MG TRANSDERMAL PATCH TOP SCH (17:54)
[2022-05-12] MEDS: SODIUM CHLORIDE 0.9% INJ 10 ML SYR IV PRN (17:57)
[2022-05-12] MEDS: ATORVASTATIN 20 MG TAB PO SCH (21:06)
[2022-05-12] MEDS: FOLIC ACID 1 MG in NS 50 ML IV SCH (21:07)
[2022-05-12] MEDS: MESALAMINE 250 MG CR CAP PO SCH (21:07)
[2022-05-13] VITALS: BP 101/64
[2022-05-13] MEDS: ACETAMINOPHEN 325MG/10.15ML UDC PO SCH ×4 (01:00→17:14)
[2022-05-13] MEDS: LEVALBUTEROL 1.25MG 0.5ML CONCENTRATE NEB INH SCH ×4 (02:00→20:02)
[2022-05-13] MEDS: SODIUM CHLORIDE HYPERTONIC 3% 15ML NEB SOL INH SCH ×4 (02:00→20:02)
[2022-05-13 04:00] VITALS: BP 125/68
[2022-05-13] MEDS: MORPHINE 10MG/0.5ML ORAL CONCENTRATE SOLUTION U/D SL SCH ×2 (05:21→17:18)
[2022-05-13] MEDS: LevoFLOXacin 750 MG TABLET PO SCH (05:22)
[2022-05-13] MEDS: SODIUM CHLORIDE 0.9% INJ 10 ML SYR IV SCH ×2 (05:22→17:19)
[2022-05-13 05:52] LABS: HEMATOCRIT 30.9 % (42.0-52.0); HEMOGLOBIN 9.8 g/dl (13.5-17.5); MEAN CORPUSCULAR HEMOGLOBIN 28.3 pg (27.0-33.0); MEAN CORPUSCULAR HGB CONC 31.7 g/dl (32.0-36.5); MEAN CORPUSCULAR VOLUME 89.3 fl (80.0-96.0); PLATELET COUNT, AUTOMATED 329 10^3/uL (150-450); RED BLOOD COUNT 3.46 10^6/uL (4.30-6.10); WHITE BLOOD COUNT 7.9 10^3/uL (4.0-10.0)
[2022-05-13] MEDS: LEVOTHYROXINE 150MCG TABLET (0.15MG) PO SCH (06:00)
[2022-05-13 06:39] LABS: ALBUMIN 1.8 GM/DL (3.2-5.2); ALKALINE PHOSPHATASE 194 U/L (45-117); ALT/SGPT 16 U/L (12-78); AST/SGOT 11 U/L (7-37); BILIRUBIN,TOTAL 0.5 MG/DL (0.2-1.0); BLOOD UREA NITROGEN 12 MG/DL (7-18); CALCIUM LEVEL 8.1 MG/DL (8.8-10.2); CARBON DIOXIDE LEVEL 23 MEQ/L (21-32); CHLORIDE LEVEL 104 MEQ/L (98-107); CREATININE FOR GFR 0.54 MG/DL (0.70-1.30); GLOMERULAR FILTRATION RATE > 60.0 (>42); GLUCOSE, FASTING 77 MG/DL (70-100); MAGNESIUM LEVEL 1.7 MG/DL (1.8-2.4); PHOSPHORUS LEVEL 1.9 MG/DL (2.5-4.9); POTASSIUM SERUM 3.7 MEQ/L (3.5-5.1); SODIUM LEVEL 135 MEQ/L (136-145)
[2022-05-13 08:00] VITALS: BP 83/51
[2022-05-13] MEDS ORDERED: MAGNESIUM OXIDE 400MG TAB (MAG-OX) PO ONE (08:00)
[2022-05-13] MEDS: ASPIRIN 81MG CHEW TABLET PO SCH (08:16)
[2022-05-13] MEDS: LACTOBACILLUS ACIDOPHILUS CAP (BACID) PO SCH ×2 (08:16→17:14)
[2022-05-13] MEDS: FERROUS SULFATE 300MG/5ML UDC LIQUID PO SCH (08:17)
[2022-05-13] MEDS: ESCITALOPRAM OXALATE 5MG TABLET (LEXAPRO) PO SCH (08:18)
[2022-05-13] MEDS: OMEPRAZOLE SUSPENSION 20MG 10ML ORAL SYRINGE PO SCH (08:18)
[2022-05-13] MEDS: TOLVAPTAN 7.5 MG HALF-TAB PO SCH (08:18)
[2022-05-13] MEDS: LIDOCAINE 5% (LIDODERM) PATCH TD SCH (08:19)
[2022-05-13] MEDS: ENOXAPARIN 40MG/0.4ML SYRINGE (J1650 PER 10MG) SC SCH (08:19)
[2022-05-13] MEDS: MIRALAX *UNIT DOSE* 17GM PACKET PO SCH ×2 (08:19→21:00)
[2022-05-13] MEDS: BACLOFEN 10 MG TAB PO SCH ×3 (08:20→21:02)
[2022-05-13] MEDS: GABAPENTIN 300 MG CAP PO SCH ×3 (08:20→21:02)
[2022-05-13] MEDS: METAMUCIL (PSYLLIUM) PACKET PO SCH ×2 (08:21→21:00)
[2022-05-13] MEDS ORDERED: SODIUM PHOSPHATE INJ 20 MMOL in D5W 250 ML IV ONE (09:00)
[2022-05-13] MEDS ORDERED: ISOVUE-370 76% 100ML VIAL As Ordered ONE (09:32)
[2022-05-13] MEDS ORDERED: MOM 30ML SUSPENSION UDC PO ONE (11:00)
[2022-05-13] MEDS: SENOKOT S TAB PO SCH ×2 (11:58→21:02)
[2022-05-13 12:37] VITALS: BP 109/61
[2022-05-13] MEDS ORDERED: BISACODYL 10MG SUPP PR PRN (12:40)
[2022-05-13] MEDS: oxyCODONE 5MG TAB PO PRN ×2 (14:07→21:02)
[2022-05-13] MEDS ORDERED: FOLIC ACID 1MG TAB PO ONE (16:45)
[2022-05-13] MEDS: SODIUM CHLORIDE 0.9% INJ 10 ML SYR IV PRN (17:19)
[2022-05-13 20:00] VITALS: BP 115/61
[2022-05-13] MEDS: ATORVASTATIN 20 MG TAB PO SCH (21:02)
[2022-05-13] MEDS: MESALAMINE 250 MG CR CAP PO SCH (21:02)
[2022-05-14] MEDS: ACETAMINOPHEN 325MG/10.15ML UDC PO SCH ×4 (01:04→17:54)
[2022-05-14] MEDS: oxyCODONE 5MG TAB PO PRN (01:12)
[2022-05-14] MEDS: LEVALBUTEROL 1.25MG 0.5ML CONCENTRATE NEB INH SCH ×4 (01:51→20:17)
[2022-05-14] MEDS: SODIUM CHLORIDE HYPERTONIC 3% 15ML NEB SOL INH SCH ×4 (01:52→20:17)
[2022-05-14 05:32] LABS: HEMATOCRIT 29.5 % (42.0-52.0); HEMOGLOBIN 9.5 g/dl (13.5-17.5); MEAN CORPUSCULAR HEMOGLOBIN 28.4 pg (27.0-33.0); MEAN CORPUSCULAR HGB CONC 32.2 g/dl (32.0-36.5); MEAN CORPUSCULAR VOLUME 88.1 fl (80.0-96.0); PLATELET COUNT, AUTOMATED 337 10^3/uL (150-450); RED BLOOD COUNT 3.35 10^6/uL (4.30-6.10); WHITE BLOOD COUNT 6.9 10^3/uL (4.0-10.0)
[2022-05-14] MEDS: MORPHINE 10MG/0.5ML ORAL CONCENTRATE SOLUTION U/D SL SCH ×2 (06:19→17:54)
[2022-05-14] MEDS: LEVOTHYROXINE 150MCG TABLET (0.15MG) PO SCH (06:19)
[2022-05-14] MEDS: LevoFLOXacin 750 MG TABLET PO SCH (06:19)
[2022-05-14 06:20] LABS: BLOOD UREA NITROGEN 9 MG/DL (7-18); CALCIUM LEVEL 8.1 MG/DL (8.8-10.2); CARBON DIOXIDE LEVEL 24 MEQ/L (21-32); CHLORIDE LEVEL 102 MEQ/L (98-107); CREATININE FOR GFR 0.48 MG/DL (0.70-1.30); GLOMERULAR FILTRATION RATE > 60.0 (>42); GLUCOSE, FASTING 75 MG/DL (70-100); MAGNESIUM LEVEL 1.8 MG/DL (1.8-2.4); PHOSPHORUS LEVEL 2.1 MG/DL (2.5-4.9); SODIUM LEVEL 133 MEQ/L (136-145)
[2022-05-14] MEDS: SODIUM CHLORIDE 0.9% INJ 10 ML SYR IV SCH ×2 (06:20→17:55)
[2022-05-14 08:52] VITALS: BP 80/50
[2022-05-14] MEDS: METAMUCIL (PSYLLIUM) PACKET PO SCH ×2 (09:00→20:36)
[2022-05-14] MEDS: ENOXAPARIN 40MG/0.4ML SYRINGE (J1650 PER 10MG) SC SCH (09:05)
[2022-05-14] MEDS: MIRALAX *UNIT DOSE* 17GM PACKET PO SCH ×2 (09:06→20:36)
[2022-05-14] MEDS: ASPIRIN 81MG CHEW TABLET PO SCH (09:06)
[2022-05-14] MEDS: SENOKOT S TAB PO SCH ×2 (09:06→20:34)
[2022-05-14] MEDS: LACTOBACILLUS ACIDOPHILUS CAP (BACID) PO SCH ×2 (09:06→17:53)
[2022-05-14] MEDS: OMEPRAZOLE SUSPENSION 20MG 10ML ORAL SYRINGE PO SCH (09:07)
[2022-05-14] MEDS: FERROUS SULFATE 300MG/5ML UDC LIQUID PO SCH (09:07)
[2022-05-14] MEDS: ESCITALOPRAM OXALATE 5MG TABLET (LEXAPRO) PO SCH (09:08)
[2022-05-14] MEDS: LIDOCAINE 5% (LIDODERM) PATCH TD SCH (09:09)
[2022-05-14] MEDS: TOLVAPTAN 7.5 MG HALF-TAB PO SCH (09:10)
[2022-05-14] MEDS: GABAPENTIN 300 MG CAP PO SCH ×3 (09:10→20:34)
[2022-05-14] MEDS: BACLOFEN 10 MG TAB PO SCH ×3 (09:10→20:34)
[2022-05-14] MEDS ORDERED: MAGNESIUM OXIDE 400MG TAB (MAG-OX) PO ONE (10:30)
[2022-05-14] MEDS: MIDODRINE 2.5 MG TAB PO SCH ×2 (11:41→16:19)
[2022-05-14] MEDS: K-PHOS ORIGINAL (POT.ACID PHOSPHATE) 500MG TAB PO SCH ×2 (11:41→20:35)
[2022-05-14 17:40] VITALS: BP 95/51
[2022-05-14 19:25] VITALS: BP 88/50
[2022-05-14 20:00] VITALS: BP 103/61
[2022-05-14] MEDS ORDERED: MIDODRINE 2.5 MG TAB PO ONE (20:00)
[2022-05-14] MEDS: ATORVASTATIN 20 MG TAB PO SCH (20:34)
[2022-05-14] MEDS: MESALAMINE 250 MG CR CAP PO SCH (20:35)
[2022-05-15] MEDS: ACETAMINOPHEN 325MG/10.15ML UDC PO SCH ×4 (00:10→17:15)
[2022-05-15] MEDS: SODIUM CHLORIDE HYPERTONIC 3% 15ML NEB SOL INH SCH ×4 (01:32→19:06)
[2022-05-15] MEDS: LEVALBUTEROL 1.25MG 0.5ML CONCENTRATE NEB INH SCH ×4 (01:32→19:06)
[2022-05-15] MEDS: MORPHINE 10MG/0.5ML ORAL CONCENTRATE SOLUTION U/D SL SCH ×2 (06:00→17:18)
[2022-05-15] MEDS: SODIUM CHLORIDE 0.9% INJ 10 ML SYR IV SCH ×2 (06:42→17:18)
[2022-05-15] MEDS: LevoFLOXacin 750 MG TABLET PO SCH (06:42)
[2022-05-15] MEDS: LEVOTHYROXINE 150MCG TABLET (0.15MG) PO SCH (06:42)
[2022-05-15 08:00] VITALS: BP 80/42
[2022-05-15] MEDS: OMEPRAZOLE SUSPENSION 20MG 10ML ORAL SYRINGE PO SCH (08:09)
[2022-05-15] MEDS: ENOXAPARIN 40MG/0.4ML SYRINGE (J1650 PER 10MG) SC SCH (08:09)
[2022-05-15] MEDS: ESCITALOPRAM OXALATE 5MG TABLET (LEXAPRO) PO SCH (08:10)
[2022-05-15] MEDS: GABAPENTIN 300 MG CAP PO SCH ×3 (08:10→21:27)
[2022-05-15] MEDS: MIDODRINE 2.5 MG TAB PO SCH ×2 (08:10→17:16)
[2022-05-15] MEDS: LACTOBACILLUS ACIDOPHILUS CAP (BACID) PO SCH ×2 (08:10→17:17)
[2022-05-15] MEDS: TOLVAPTAN 7.5 MG HALF-TAB PO SCH (08:10)
[2022-05-15] MEDS: ASPIRIN 81MG CHEW TABLET PO SCH (08:10)
[2022-05-15] MEDS: FERROUS SULFATE 300MG/5ML UDC LIQUID PO SCH (08:10)
[2022-05-15] MEDS: BACLOFEN 10 MG TAB PO SCH ×3 (08:11→21:28)
[2022-05-15] MEDS: SENOKOT S TAB PO SCH ×2 (08:12→21:00)
[2022-05-15] MEDS: LIDOCAINE 5% (LIDODERM) PATCH TD SCH ×2 (08:12→20:12)
[2022-05-15] MEDS: MIRALAX *UNIT DOSE* 17GM PACKET PO SCH ×2 (08:12→21:00)
[2022-05-15] MEDS: METAMUCIL (PSYLLIUM) PACKET PO SCH ×2 (08:13→21:00)
[2022-05-15] MEDS ORDERED: FLUDROCORTISONE ACETATE 0.1 MG TAB PO SCH (09:00)
[2022-05-15 10:22] VITALS: BP 66/46
[2022-05-15] MEDS ORDERED: LR 1,000 ML IV ONE ×2 (10:25→12:30)
[2022-05-15 11:49] LABS: HEMATOCRIT 32.8 % (42.0-52.0); MEAN CORPUSCULAR HEMOGLOBIN 27.9 pg (27.0-33.0); MEAN CORPUSCULAR HGB CONC 30.5 g/dl (32.0-36.5); MEAN CORPUSCULAR VOLUME 91.4 fl (80.0-96.0); PLATELET COUNT, AUTOMATED 362 10^3/uL (150-450); RED BLOOD COUNT 3.59 10^6/uL (4.30-6.10); WHITE BLOOD COUNT 8.7 10^3/uL (4.0-10.0)
[2022-05-15 11:58] VITALS: BP 78/50
[2022-05-15] MEDS ORDERED: MIDODRINE 2.5 MG TAB PO SCH (12:00)
[2022-05-15 12:01] LABS: BLOOD UREA NITROGEN 12 MG/DL (7-18); CALCIUM LEVEL 8.6 MG/DL (8.8-10.2); CARBON DIOXIDE LEVEL 26 MEQ/L (21-32); CHLORIDE LEVEL 105 MEQ/L (98-107); CREATININE FOR GFR 0.82 MG/DL (0.70-1.30); GLOMERULAR FILTRATION RATE > 60.0 (>42); GLUCOSE, FASTING 80 MG/DL (70-100); POTASSIUM SERUM 4.3 MEQ/L (3.5-5.1); SODIUM LEVEL 136 MEQ/L (136-145)
[2022-05-15 12:57] LABS: FREE T4 1.12 NG/DL (0.76-1.46)
[2022-05-15 13:07] VITALS: BP 82/50
[2022-05-15 15:45] VITALS: BP 98/64
[2022-05-15] MEDS: LR 1,000 ML IV SCH (16:26)
[2022-05-15] MEDS: SCOPOLAMINE 1MG TRANSDERMAL PATCH TOP SCH (17:17)
[2022-05-15 19:49] VITALS: BP 102/51
[2022-05-15] MEDS: ATORVASTATIN 20 MG TAB PO SCH (21:27)
[2022-05-15] MEDS: MESALAMINE 250 MG CR CAP PO SCH (21:27)
[2022-05-16] VITALS (7 sets, daily range): BP systolic 96–141; BP diastolic 53–78
[2022-05-16] MEDS: LR 1,000 ML IV SCH ×2 (00:09→08:38)
[2022-05-16] MEDS: ACETAMINOPHEN 325MG/10.15ML UDC PO SCH ×4 (00:10→18:48)
[2022-05-16] MEDS: LEVALBUTEROL 1.25MG 0.5ML CONCENTRATE NEB INH SCH ×4 (01:18→19:13)
[2022-05-16] MEDS: SODIUM CHLORIDE HYPERTONIC 3% 15ML NEB SOL INH SCH ×4 (01:18→19:13)
[2022-05-16] MEDS: LevoFLOXacin 750 MG TABLET PO SCH (05:54)
[2022-05-16] MEDS: LEVOTHYROXINE 150MCG TABLET (0.15MG) PO SCH (05:58)
[2022-05-16] MEDS: SODIUM CHLORIDE 0.9% INJ 10 ML SYR IV SCH ×2 (05:59→18:48)
[2022-05-16] MEDS: MORPHINE 10MG/0.5ML ORAL CONCENTRATE SOLUTION U/D SL SCH ×2 (06:00→18:00)
[2022-05-16 06:10] LABS: HEMATOCRIT 30.7 % (42.0-52.0); HEMOGLOBIN 9.7 g/dl (13.5-17.5); MEAN CORPUSCULAR HEMOGLOBIN 28.4 pg (27.0-33.0); MEAN CORPUSCULAR HGB CONC 31.6 g/dl (32.0-36.5); MEAN CORPUSCULAR VOLUME 89.8 fl (80.0-96.0); PLATELET COUNT, AUTOMATED 319 10^3/uL (150-450); RED BLOOD COUNT 3.42 10^6/uL (4.30-6.10); WHITE BLOOD COUNT 5.6 10^3/uL (4.0-10.0)
[2022-05-16 06:46] LABS: BLOOD UREA NITROGEN 11 MG/DL (7-18); CALCIUM LEVEL 8.4 MG/DL (8.8-10.2); CARBON DIOXIDE LEVEL 24 MEQ/L (21-32); CHLORIDE LEVEL 105 MEQ/L (98-107); CREATININE FOR GFR 0.52 MG/DL (0.70-1.30); GLOMERULAR FILTRATION RATE > 60.0 (>42); GLUCOSE, FASTING 90 MG/DL (70-100); MAGNESIUM LEVEL 1.8 MG/DL (1.8-2.4); PHOSPHORUS LEVEL 2.5 MG/DL (2.5-4.9); POTASSIUM SERUM 4.8 MEQ/L (3.5-5.1); SODIUM LEVEL 137 MEQ/L (136-145)
[2022-05-16] MEDS: SENOKOT S TAB PO SCH ×2 (09:00→21:00)
[2022-05-16] MEDS: METAMUCIL (PSYLLIUM) PACKET PO SCH ×2 (09:00→21:00)
[2022-05-16] MEDS ORDERED: COSYNTROPIN 0.25 MG/ML 1ML VIAL IV ONE (09:00)
[2022-05-16] MEDS: MIRALAX *UNIT DOSE* 17GM PACKET PO SCH ×2 (09:00→21:00)
[2022-05-16] MEDS: FERROUS SULFATE 300MG/5ML UDC LIQUID PO SCH (09:34)
[2022-05-16] MEDS: MIDODRINE 2.5 MG TAB PO SCH ×3 (09:35→15:52)
[2022-05-16] MEDS: LACTOBACILLUS ACIDOPHILUS CAP (BACID) PO SCH ×2 (09:35→18:48)
[2022-05-16] MEDS: ASPIRIN 81MG CHEW TABLET PO SCH (09:36)
[2022-05-16] MEDS: BACLOFEN 10 MG TAB PO SCH ×3 (09:36→21:31)
[2022-05-16] MEDS: GABAPENTIN 300 MG CAP PO SCH ×3 (09:36→21:30)
[2022-05-16] MEDS: ESCITALOPRAM OXALATE 5MG TABLET (LEXAPRO) PO SCH (09:36)
[2022-05-16] MEDS: LIDOCAINE 5% (LIDODERM) PATCH TD SCH (09:38)
[2022-05-16] MEDS: ENOXAPARIN 40MG/0.4ML SYRINGE (J1650 PER 10MG) SC SCH (09:38)
[2022-05-16] MEDS: OMEPRAZOLE SUSPENSION 20MG 10ML ORAL SYRINGE PO SCH (09:39)
[2022-05-16] MEDS: MESALAMINE 250 MG CR CAP PO SCH (21:30)
[2022-05-16] MEDS: ATORVASTATIN 20 MG TAB PO SCH (21:31)
[2022-05-17] MEDS: ACETAMINOPHEN 325MG/10.15ML UDC PO SCH ×4 (00:13→18:35)
[2022-05-17 00:30] VITALS: BP 113/61
[2022-05-17] MEDS: SODIUM CHLORIDE HYPERTONIC 3% 15ML NEB SOL INH SCH ×4 (02:00→20:00)
[2022-05-17] MEDS: LEVALBUTEROL 1.25MG 0.5ML CONCENTRATE NEB INH SCH ×4 (02:00→20:00)
[2022-05-17 04:00] VITALS: BP 120/64
[2022-05-17] MEDS: LEVOTHYROXINE 150MCG TABLET (0.15MG) PO SCH (05:32)
[2022-05-17] MEDS: LevoFLOXacin 750 MG TABLET PO SCH (05:32)
[2022-05-17] MEDS: MORPHINE 10MG/0.5ML ORAL CONCENTRATE SOLUTION U/D SL SCH ×2 (05:33→18:34)
[2022-05-17] MEDS: SODIUM CHLORIDE 0.9% INJ 10 ML SYR IV SCH ×2 (05:34→18:35)
[2022-05-17 05:35] LABS: HEMATOCRIT 31.2 % (42.0-52.0); HEMOGLOBIN 9.2 g/dl (13.5-17.5); LYMPH # 0.4 10^3/uL (1.5-5.0); LYMPH % 4.7 % (24.0-44.0); MEAN CORPUSCULAR HEMOGLOBIN 27.6 pg (27.0-33.0); MEAN CORPUSCULAR HGB CONC 29.5 g/dl (32.0-36.5); MEAN CORPUSCULAR VOLUME 93.7 fl (80.0-96.0); MONO # 0.5 10^3/uL (0.0-0.8); MONO % 6.9 % (2.0-8.0); NEUTROPHILS # 6.7 10^3/uL (1.5-8.5); NEUTROPHILS % 87.9 % (36.0-66.0); PLATELET COUNT, AUTOMATED 323 10^3/uL (150-450); RED BLOOD COUNT 3.33 10^6/uL (4.30-6.10); WHITE BLOOD COUNT 7.7 10^3/uL (4.0-10.0)
[2022-05-17 06:28] LABS: ALBUMIN 1.8 GM/DL (3.2-5.2); ALKALINE PHOSPHATASE 144 U/L (45-117); ALT/SGPT 14 U/L (12-78); AST/SGOT 9 U/L (7-37); BILIRUBIN,TOTAL 0.3 MG/DL (0.2-1.0); BLOOD UREA NITROGEN 13 MG/DL (7-18); CALCIUM LEVEL 8.3 MG/DL (8.8-10.2); CARBON DIOXIDE LEVEL 21 MEQ/L (21-32); CHLORIDE LEVEL 104 MEQ/L (98-107); CREATININE FOR GFR 0.51 MG/DL (0.70-1.30); GLOMERULAR FILTRATION RATE > 60.0 (>42); GLUCOSE, FASTING 84 MG/DL (70-100); MAGNESIUM LEVEL 1.7 MG/DL (1.8-2.4); POTASSIUM SERUM 3.9 MEQ/L (3.5-5.1); SODIUM LEVEL 132 MEQ/L (136-145)
[2022-05-17 07:51] VITALS: BP 98/52
[2022-05-17] MEDS ORDERED: MAGNESIUM OXIDE 400MG TAB (MAG-OX) PO ONE (08:30)
[2022-05-17] MEDS: SANTYL OINT 30GM TOP SCH (09:00)
[2022-05-17] MEDS: MIRALAX *UNIT DOSE* 17GM PACKET PO SCH ×2 (09:05→20:34)
[2022-05-17] MEDS: LIDOCAINE 5% (LIDODERM) PATCH TD SCH (09:05)
[2022-05-17] MEDS: MIDODRINE 2.5 MG TAB PO SCH ×3 (09:06→16:39)
[2022-05-17] MEDS: LACTOBACILLUS ACIDOPHILUS CAP (BACID) PO SCH ×2 (09:06→18:35)
[2022-05-17] MEDS: BACLOFEN 10 MG TAB PO SCH ×3 (09:06→20:34)
[2022-05-17] MEDS: ASPIRIN 81MG CHEW TABLET PO SCH (09:06)
[2022-05-17] MEDS: SENOKOT S TAB PO SCH ×2 (09:07→20:34)
[2022-05-17] MEDS: GABAPENTIN 300 MG CAP PO SCH ×3 (09:07→20:34)
[2022-05-17] MEDS: ENOXAPARIN 40MG/0.4ML SYRINGE (J1650 PER 10MG) SC SCH (09:08)
[2022-05-17] MEDS: METAMUCIL (PSYLLIUM) PACKET PO SCH ×2 (09:42→20:34)
[2022-05-17] MEDS: FERROUS SULFATE 300MG/5ML UDC LIQUID PO SCH (09:42)
[2022-05-17] MEDS: OMEPRAZOLE SUSPENSION 20MG 10ML ORAL SYRINGE PO SCH (09:42)
[2022-05-17] MEDS: ESCITALOPRAM OXALATE 5MG TABLET (LEXAPRO) PO SCH (09:42)
[2022-05-17 11:43] VITALS: BP 109/56
[2022-05-17 16:00] VITALS: BP 123/69
[2022-05-17 20:00] VITALS: BP 115/67
[2022-05-17] MEDS: ATORVASTATIN 20 MG TAB PO SCH (20:34)
[2022-05-17] MEDS: MESALAMINE 250 MG CR CAP PO SCH (20:34)
[2022-05-18] VITALS (7 sets, daily range): BP systolic 92–122; BP diastolic 50–67
[2022-05-18] MEDS: SODIUM CHLORIDE HYPERTONIC 3% 15ML NEB SOL INH SCH ×4 (01:26→20:19)
[2022-05-18] MEDS: LEVALBUTEROL 1.25MG 0.5ML CONCENTRATE NEB INH SCH ×4 (01:27→20:19)
[2022-05-18 05:02] LABS: EOS % 0.1 % (0.0-3.0); HEMATOCRIT 30.5 % (42.0-52.0); HEMOGLOBIN 9.6 g/dl (13.5-17.5); LYMPH # 0.4 10^3/uL (1.5-5.0); LYMPH % 6.2 % (24.0-44.0); MEAN CORPUSCULAR HEMOGLOBIN 27.9 pg (27.0-33.0); MEAN CORPUSCULAR HGB CONC 31.5 g/dl (32.0-36.5); MEAN CORPUSCULAR VOLUME 88.7 fl (80.0-96.0); MONO # 0.5 10^3/uL (0.0-0.8); MONO % 6.9 % (2.0-8.0); NEUTROPHILS % 86.2 % (36.0-66.0); PLATELET COUNT, AUTOMATED 339 10^3/uL (150-450); RED BLOOD COUNT 3.44 10^6/uL (4.30-6.10)
[2022-05-18 05:37] LABS: ALBUMIN 1.8 GM/DL (3.2-5.2); ALKALINE PHOSPHATASE 157 U/L (45-117); ALT/SGPT 14 U/L (12-78); AST/SGOT 11 U/L (7-37); BILIRUBIN,TOTAL 0.3 MG/DL (0.2-1.0); BLOOD UREA NITROGEN 12 MG/DL (7-18); CALCIUM LEVEL 8.1 MG/DL (8.8-10.2); CARBON DIOXIDE LEVEL 24 MEQ/L (21-32); CHLORIDE LEVEL 102 MEQ/L (98-107); CREATININE FOR GFR 0.56 MG/DL (0.70-1.30); GLOMERULAR FILTRATION RATE > 60.0 (>42); GLUCOSE, FASTING 76 MG/DL (70-100); MAGNESIUM LEVEL 1.7 MG/DL (1.8-2.4); SODIUM LEVEL 130 MEQ/L (136-145); TOTAL PROTEIN 5.1 GM/DL (6.4-8.2)
[2022-05-18] MEDS: ACETAMINOPHEN 325MG/10.15ML UDC PO SCH ×5 (06:07→23:18)
[2022-05-18] MEDS: LEVOTHYROXINE 150MCG TABLET (0.15MG) PO SCH (06:08)
[2022-05-18] MEDS: MORPHINE 10MG/0.5ML ORAL CONCENTRATE SOLUTION U/D SL SCH ×2 (06:08→17:59)
[2022-05-18] MEDS: SODIUM CHLORIDE 0.9% INJ 10 ML SYR IV SCH ×2 (06:09→17:52)
[2022-05-18] MEDS: LACTOBACILLUS ACIDOPHILUS CAP (BACID) PO SCH ×2 (09:00→17:52)
[2022-05-18] MEDS: MIDODRINE 2.5 MG TAB PO SCH ×3 (09:00→16:10)
[2022-05-18] MEDS: MIRALAX *UNIT DOSE* 17GM PACKET PO SCH ×2 (09:00→20:15)
[2022-05-18] MEDS: METAMUCIL (PSYLLIUM) PACKET PO SCH ×2 (09:00→20:15)
[2022-05-18] MEDS: SENOKOT S TAB PO SCH ×2 (09:01→20:16)
[2022-05-18] MEDS: ASPIRIN 81MG CHEW TABLET PO SCH (09:01)
[2022-05-18] MEDS: OMEPRAZOLE SUSPENSION 20MG 10ML ORAL SYRINGE PO SCH (09:01)
[2022-05-18] MEDS: FERROUS SULFATE 300MG/5ML UDC LIQUID PO SCH (09:01)
[2022-05-18] MEDS: ESCITALOPRAM OXALATE 5MG TABLET (LEXAPRO) PO SCH (09:01)
[2022-05-18] MEDS: GABAPENTIN 300 MG CAP PO SCH ×3 (09:01→20:24)
[2022-05-18] MEDS: BACLOFEN 10 MG TAB PO SCH ×3 (09:02→20:25)
[2022-05-18] MEDS: SANTYL OINT 30GM TOP SCH (09:02)
[2022-05-18] MEDS: LIDOCAINE 5% (LIDODERM) PATCH TD SCH (09:03)
[2022-05-18] MEDS: ENOXAPARIN 40MG/0.4ML SYRINGE (J1650 PER 10MG) SC SCH (09:03)
[2022-05-18] MEDS: NS 1,000 ML IV SCH (16:49)
[2022-05-18] MEDS: SCOPOLAMINE 1MG TRANSDERMAL PATCH TOP SCH (17:53)
[2022-05-18] MEDS: ATORVASTATIN 20 MG TAB PO SCH (20:24)
[2022-05-18] MEDS: MESALAMINE 250 MG CR CAP PO SCH (20:24)
[2022-05-19] VITALS: BP 110/66
[2022-05-19] MEDS: LEVALBUTEROL 1.25MG 0.5ML CONCENTRATE NEB INH SCH (01:27)
[2022-05-19] MEDS: SODIUM CHLORIDE HYPERTONIC 3% 15ML NEB SOL INH SCH (01:28)
[2022-05-19 04:00] VITALS: BP 102/60
[2022-05-19 05:53] LABS: HEMATOCRIT 31.4 % (42.0-52.0); HEMOGLOBIN 9.8 g/dl (13.5-17.5); LYMPH # 0.4 10^3/uL (1.5-5.0); LYMPH % 4.9 % (24.0-44.0); MEAN CORPUSCULAR HEMOGLOBIN 28.1 pg (27.0-33.0); MEAN CORPUSCULAR HGB CONC 31.2 g/dl (32.0-36.5); MONO # 0.5 10^3/uL (0.0-0.8); MONO % 6.2 % (2.0-8.0); NEUTROPHILS # 6.7 10^3/uL (1.5-8.5); NEUTROPHILS % 88.5 % (36.0-66.0); PLATELET COUNT, AUTOMATED 305 10^3/uL (150-450); RED BLOOD COUNT 3.49 10^6/uL (4.30-6.10); WHITE BLOOD COUNT 7.6 10^3/uL (4.0-10.0)
[2022-05-19 06:07] VITALS: BP 108/54
[2022-05-19] MEDS: LEVOTHYROXINE 150MCG TABLET (0.15MG) PO SCH (06:10)
[2022-05-19] MEDS: SODIUM CHLORIDE 0.9% INJ 10 ML SYR IV SCH (06:10)
[2022-05-19] MEDS: ACETAMINOPHEN 325MG/10.15ML UDC PO SCH (06:10)
[2022-05-19] MEDS: MORPHINE 10MG/0.5ML ORAL CONCENTRATE SOLUTION U/D SL SCH (06:12)
[2022-05-19] MEDS: NS 1,000 ML IV SCH (06:13)
[2022-05-19 06:30] LABS: ALBUMIN 1.9 GM/DL (3.2-5.2); ALKALINE PHOSPHATASE 165 U/L (45-117); ALT/SGPT 15 U/L (12-78); AST/SGOT 9 U/L (7-37); BILIRUBIN,TOTAL 0.3 MG/DL (0.2-1.0); BLOOD UREA NITROGEN 13 MG/DL (7-18); CARBON DIOXIDE LEVEL 23 MEQ/L (21-32); CHLORIDE LEVEL 102 MEQ/L (98-107); CREATININE FOR GFR 0.49 MG/DL (0.70-1.30); GLOMERULAR FILTRATION RATE > 60.0 (>42); GLUCOSE, FASTING 79 MG/DL (70-100); MAGNESIUM LEVEL 1.6 MG/DL (1.8-2.4); POTASSIUM SERUM 4.2 MEQ/L (3.5-5.1); SODIUM LEVEL 131 MEQ/L (136-145); TOTAL PROTEIN 4.9 GM/DL (6.4-8.2)
[2022-05-19] MEDS ORDERED: MAGNESIUM OXIDE 400MG TAB (MAG-OX) PO ONE (07:30)
[2022-05-19 08:00] VITALS: BP 88/52
[2022-05-19] MEDS: FERROUS SULFATE 300MG/5ML UDC LIQUID PO SCH (08:14)
[2022-05-19] MEDS: GABAPENTIN 300 MG CAP PO SCH (08:14)
[2022-05-19] MEDS: ESCITALOPRAM OXALATE 5MG TABLET (LEXAPRO) PO SCH (08:14)
[2022-05-19] MEDS: SENOKOT S TAB PO SCH (08:14)
[2022-05-19] MEDS: LACTOBACILLUS ACIDOPHILUS CAP (BACID) PO SCH (08:15)
[2022-05-19] MEDS: MIDODRINE 2.5 MG TAB PO SCH (08:15)
[2022-05-19] MEDS: BACLOFEN 10 MG TAB PO SCH (08:15)
[2022-05-19] MEDS: ASPIRIN 81MG CHEW TABLET PO SCH (08:15)
[2022-05-19] MEDS: ENOXAPARIN 40MG/0.4ML SYRINGE (J1650 PER 10MG) SC SCH (08:16)
[2022-05-19] MEDS: OMEPRAZOLE SUSPENSION 20MG 10ML ORAL SYRINGE PO SCH (08:17)
[2022-05-19] MEDS: SANTYL OINT 30GM TOP SCH (08:18)
[2022-05-19] MEDS: LIDOCAINE 5% (LIDODERM) PATCH TD SCH (08:23)
[2022-05-19] MEDS: METAMUCIL (PSYLLIUM) PACKET PO SCH (08:23)
[2022-05-19] MEDS: MIRALAX *UNIT DOSE* 17GM PACKET PO SCH (08:24)
[2022-05-19] MEDS ORDERED: BACL10TA2 PO (09:50)
[2022-05-19] MEDS ORDERED: BISA10SU PR (09:50)
[2022-05-19] MEDS ORDERED: MIDO2.5T PO (09:50)
[2022-05-19] MEDS ORDERED: Omeprazole Suspension PO (09:50)
[2022-05-19] MEDS ORDERED: MORP1SOL SL (09:50)
[2022-05-19] MEDS ORDERED: ACET325S6 PO (09:50)
[2022-05-19] MEDS ORDERED: SANT250O8 TOP (09:50)
[2022-05-19] MEDS ORDERED: SENN-52 PO (09:50)
[2022-05-19] MEDS ORDERED: DEXA4TA PO (09:50)
[2022-05-19] MEDS ORDERED: FERR5MLUD PO (09:50)
[2022-05-19] MEDS ORDERED: TRAN1DIS4 TOP (09:50)
[2022-05-19] MEDS ORDERED: GABA-282 PO (09:50)
[2022-05-19] MEDS ORDERED: MESA24CASA PO (09:50)
[2022-05-19 11:13] VITALS: BP 120/62
[2022-05-19] MEDS: oxyCODONE 5MG TAB PO PRN (11:13)
== END 2022-05-19 11:28 | disposition home health service (06) | DRG 947 ==
LOC: M MSPAV 17:47 → M PCU 05-11 17:46
PROVIDERS: ADMIT Internal Medicine; ATTEND Family Medicine
PROC: 02HV33Z Insertion of Infusion Device into Superior Vena Cava, Percutaneous Approach (ICD-10-PCS; principal; 2022-05-01 14:30)
PROC: 30233N1 Transfusion of Nonautologous Red Blood Cells into Peripheral Vein, Percutaneous Approach (ICD-10-PCS; 2022-05-10)
DX: G89.3 Neoplasm related pain (acute) (chronic) (principal); E43 Unspecified severe protein-calorie malnutrition; L89.154 Pressure ulcer of sacral region, stage 4; C79.51 Secondary malignant neoplasm of bone; I50.22 Chronic systolic (congestive) heart failure; E22.2 Syndrome of inappropriate secretion of antidiuretic hormone; J98.11 Atelectasis; N39.0 Urinary tract infection, site not specified; M84.58XA Pathological fracture in neoplastic disease, other specified site, initial encounter for fracture; C77.3 Secondary and unspecified malignant neoplasm of axilla and upper limb lymph nodes; C78.1 Secondary malignant neoplasm of mediastinum; E27.1 Primary adrenocortical insufficiency; C79.72 Secondary malignant neoplasm of left adrenal gland; I48.0 Paroxysmal atrial fibrillation; I25.10 Atherosclerotic heart disease of native coronary artery without angina pectoris; E78.5 Hyperlipidemia, unspecified; E03.9 Hypothyroidism, unspecified; Z66 Do not resuscitate; M79.18 Myalgia, other site; M19.90 Unspecified osteoarthritis, unspecified site; Z90.2 Acquired absence of lung [part of]; Z90.5 Acquired absence of kidney; Z90.49 Acquired absence of other specified parts of digestive tract; Z85.118 Personal history of other malignant neoplasm of bronchus and lung; Z79.891 Long term (current) use of opiate analgesic; Z95.1 Presence of aortocoronary bypass graft; R33.9 Retention of urine, unspecified; L89.620 Pressure ulcer of left heel, unstageable; N40.1 Benign prostatic hyperplasia with lower urinary tract symptoms; D64.9 Anemia, unspecified; B96.1 Klebsiella pneumoniae [K. pneumoniae] as the cause of diseases classified elsewhere; I69.391 Dysphagia following cerebral infarction; R31.9 Hematuria, unspecified; C26.9 Malignant neoplasm of ill-defined sites within the digestive system; R11.2 Nausea with vomiting, unspecified; F32.A Depression, unspecified; R94.31 Abnormal electrocardiogram [ECG] [EKG]; K58.9 Irritable bowel syndrome, unspecified; T40.2X5A Adverse effect of other opioids, initial encounter; K59.03 Drug induced constipation; I95.9 Hypotension, unspecified; Z79.82 Long term (current) use of aspirin; Z86.16 Personal history of COVID-19; Z79.01 Long term (current) use of anticoagulants; Z93.0 Tracheostomy status; Z88.2 Allergy status to sulfonamides; Z79.899 Other long term (current) drug therapy; Z79.890 Hormone replacement therapy; Z85.038 Personal history of other malignant neoplasm of large intestine; Z85.528 Personal history of other malignant neoplasm of kidney; Z85.21 Personal history of malignant neoplasm of larynx; Z92.3 Personal history of irradiation